=== PATIENT | female | born 1950 | race Caucasian/White ===

== ENCOUNTER → 2017-10-02 17:04 | Outpatient (CLI) | payer OTHER, SELFPAY ==
--- NOTE | 2017-10-02 17:08 | RAD_ITS ---
STUDY: X-RAY - RIGHT KNEE REASON FOR EXAM: Female, 67 years old. Pain TECHNIQUE: 4 view(s) of the knee. COMPARISON: None. FINDINGS: Normal visualized distal femur. Normal visualized proximal tibia and fibula. Normal proximal tibiofibular articulation. Normal medial femorotibial compartment. Normal lateral femorotibial compartment. Normal patellofemoral articulation. The soft tissue structures are unremarkable. RAD/Knee 4 or More Views IMPRESSION: Normal x-ray examination of the knee. Electronically Signed: Shaheen Bernstein DO at 19:14 EDT Tel [phone], Service support ,
== END ==
PROVIDERS: Family Provider Family Medicine; PCP Family Medicine; Visit Provider Family Medicine
DX: M25.561 Pain in right knee (principal)
CPT/HCPCS: 73564

== ENCOUNTER → 2018-05-21 14:41 | Outpatient (CLI) | payer OTHER, SELFPAY ==
[2018-05-21 16:01] LABS: Hemoglobin A1c 6.4 % (4.2-6.3)
[2018-05-21 17:11] LABS: ALB/GLOB Ratio 1.3 RATIO (0.9-2.4); AST(SGOT) 22 U/L (15-37); Alanine Aminotransfer ALT/SGPT 35 U/L (13-56); Albumin, Serum 4.2 g/dL (3.2-5.0); Alkaline Phosphatase 71 U/L (45-117); Anion Gap 8 (5-15); BUN 15 mg/dL (7-18); BUN/Creat Ratio 20.8 RATIO (10-20); Calcium,Total 8.9 mg/dL (8.5-10.1); Chloride 106 mmol/L (98-107); Creatinine, Serum 0.72 mg/dL (0.55-1.02); EST Glomerular Filtration Rate 86 mL/min (>60); Est Glom Filt Rate - Afr Amer 104 mL/min (>60); Globulin 3.3 g/dL (2.2-4.2); Glucose 101 mg/dL (74-106); Potassium 4.1 mmol/L (3.5-5.1); Protein, Total 7.5 g/dL (6.4-8.2); Sodium Level 140 mmol/L (136-145); Thyroid Stim Hormone (TSH) 1.82 uIU/mL (0.358-3.74)
--- OUTSIDE RECORDS SUMMARY | 2018-07-07 19:45 | XMS RPT_ITS ---
:1950 Author Organization OHIP Care Team Providers Name Role Phone Jeremiah Post Attending Unavailable Jeremiah Post Primary Care Unavailable Jeremiah Post Attending Unavailable Jeremiah Post Referring Unavailable Jeremiah Post Primary Care Unavailable PROBLEMS PROBLEMS DATE TYPE CONDITION / CODE ATTENDING STATUS SOURCE 10/02/2017 Unknown M25.569 - Pain in Jeremiah Post Active [place] unspecified knee Community / M25.569(ICD-10) Hospital Repository PROCEDURES PROCEDURES No Procedure Records FoundRESULTS RESULTS HEMOGLOBIN A1C Collected: 05/21/2018 Status: F Source: [place] 2:42 PM [facility] REPOSITORY TYPE CODE TESTS RESULT OUT OF RANGE REFERENCE UNITS LAB L501.9985 4.2-6.3 % High HGB A1C 6.4 Performed By: #### L501.9985, L500.4050, L501.9520 #### [facility] [address] [place], [place], [id number] COMPREHENSIVE METABOLIC Collected: 05/21/2018 Status: F Source: [facility] 2:42 PM [facility] REPOSITORY TYPE CODE TESTS RESULT OUT OF RANGE REFERENCE UNITS LAB L501.0100 74-106 mg/dL Normal GLU 101 Result Comment: Fasting Glucose result from 100 to 125 mg/dL suggests IMPAIRED HOMEOSTASIS per A.D.A. criteria. Please note revised GLUCOSE reference range effective 2017. LAB L501.1000 7-18 mg/dL Normal BUN 15 LAB L501.1100 0.55-1.02 mg/dL Normal CREAT,SERUM 0.72 Result Comment: The validity of the calculated GFR AND GFRAA in patients over 70 years has not been determined. Clinical correlation is essential. LAB L501.1110 >60 mL/min Normal EST GFR 86 Result Comment: Non- GFR Calc LAB L501.1115 >60 mL/min Normal EST GFR - AA 104 Result Comment: GFR Calc LAB L501.1300 10-20 RATIO High BUN/CRE 20.8 LAB L501.1500 6.4-8.2 g/dL T Normal PROT 7.5 LAB L501.1800 3.2-5.0 g/dL Normal ALB 4.2 LAB L501.1950 2.2-4.2 g/dL Normal GLOB 3.3 LAB L501.2000 0.9-2.4 RATIO Normal A/G 1.3 LAB L501.2200 8.5-10.1 mg/dL CA Normal 8.9 LAB L501.4100 15-37 U/L Normal AST 22 LAB L501.4305 45-117 U/L Normal ALK P 71 LAB L501.4405 13-56 U/L Normal ALT 35 LAB L501.4600 0.20-1.00 mg/dL T Normal BILI 0.50 LAB L501.5300 136-145 mmol/L NA Normal 140 LAB L501.5600 3.5-5.1 mmol/L K Normal 4.1 LAB L501.5900 98-107 mmol/L CL Normal 106 LAB L501.6100 21.0-32.0 mmol/L Normal CO2 26.0 LAB L501.6200 5-15 Normal GAP 8 Performed By: #### L501.9985, L500.4050, L501.9520 #### [facility] [address] [place], [place], [id number] THYROID STIM HORMONE Collected: 05/21/2018 Status: F Source: [place] ([facility]) 2:42 PM [facility] REPOSITORY TYPE CODE TESTS RESULT OUT OF RANGE REFERENCE UNITS LAB L501.9520 0.358-3.74 uIU/mL Normal TSH 1.82 Performed By: #### L501.9985, L500.4050, L501.9520 #### [facility] [address] [place], [address] KNEE 4 OR MORE Observed: 10/02/2017 Status: F Source: [place] VIEWS 5:08 PM [facility] REPOSITORY [facility] Imaging Services [address] [place] [address] Knee 4 or More Views MR#: [id number] Acct: [id number] Name: Noble CALDERON Rep #: [id number] : 1950 F 67 From: Shaheen Bernstein DO PCP: Jeremiah Post MD Status: REG CLI Study: Knee 4 or More Views Date of Exam: 10/02/17 Exam# [id number] Ordering Dr: Jeremiah Post MD STUDY: X-RAY - RIGHT KNEE REASON FOR EXAM: Female, 67 years old. Pain TECHNIQUE: 4 view(s) of the knee. COMPARISON: None. FINDINGS: Normal visualized distal femur. Normal visualized proximal tibia and fibula. Normal proximal tibiofibular articulation. Normal medial femorotibial compartment. Normal lateral femorotibial compartment. Normal patellofemoral articulation. The soft tissue structures are unremarkable. RAD/Knee 4 or More Views IMPRESSION: Normal x-ray examination of the knee. Electronically Signed: Shaheen Bernstein DO at 19:14 EDT Tel [phone], Service support , CC: Jeremiah Post MD Dermatology Specialist: Signed PROGRESS Observed: 08/30/2017 Status: COMPLETED Source: [place] 12:11 PM [facility] REPOSITORY HNO ID: [id number] Author: Shakira Daley Service: (none) Author Type: Physician Pv Design And Installation Technician Type: Progress Notes Filed: 08/30/2017 12:23 PM Note Text: 08/30/2017 Patient presents with: Sore Throat: X 2 days SUBJECTIVE: This is a 67 year old that is here today for Complaint(s) of fever and sore throat x last night. + chills. + TORRES. + cough. Denies congestion, vomiting, diarrhea, SOB, wheezing. PAST MEDICAL HISTORY Diagnosis Date - Anxiety - Tachycardia ALLERGIES Macrobid [Nitrofurantoin Monohyd/M-Cryst]; Penicillins; Toprol Xl [Metoprolol Succinate] MEDICATIONS Current Outpatient Prescriptions: clonazePAM (KLONOPIN) 0.5 mg tablet Take 0.5 mg by mouth twice daily as needed. FLUoxetine (PROZAC) 20 mg capsule Take 20 mg by mouth once daily. TRAZODONE HCL (TRAZODONE ORAL) Take by mouth. phenazopyridine (PYRIDIUM) 100 mg tablet Take 1 tablet by mouth three times daily as needed for Pain. No current facility-administered medications for this visit. 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 OBJECTIVE: BP 102/74 Pulse 110 Temp 37.4 ?C (99.4 ?F) (Tympanic) Resp 18 Wt 67.1 kg (148 lb) BMI 27.51 kg/m2 APPEARANCE Well appearing, alert, in no acute distress, well-hydrated, well nourished. EYES PERRLA, conjunctiva and sclera normal. EARS External ears normal, canals clear. TMs normal ESPERANZA NOSE/SINUS Nares normal. Septum midline. Mucosa normal. No drainage or sinus tenderness. THROAT + posterior oropharyngeal erythema, no exudate. Uvula midline NECK Supple, + ESPERANZA anterior adenopathy HEART RRR with normal S1 and S2 LUNG clear to auscultation, No wheezing, rhonchi, rales. ASSESSMENT/PLAN: 1. Sore throat - ICD9: 462, ICD10: J02.9 - Rapid Strep positive in the office today - antibiotic as written - Discussed supportive care treatment with fluids, rest and analgesia. - The patient may also use warm salt water gargles, throat lozenges and/or OTC throat spray as needed and nasal saline gtts and suction prn. - Contagious dz precautions discussed- including considered contagious until on antibiotics for 24 hours - The patient should follow up in 3-5 days if symptoms persist or worsen - Call back if drooling, increased temperature, symptoms of dehydration and/or still sick in one week - RAPID STREP TEST B/O - CEFDINIR 300 MG CAPSULE Reviewed red flags and when to seek care sooner. The patient indicates understanding of these issues and agrees with the plan. Shakira Daley PA-C CNOV Observed: 08/30/2017 Status: COMPLETED Source: [place] 12:00 PM [facility] REPOSITORY Office Visit (WSTR) Noble CALDERON ([id number]) 1950 F Date Time Provider Department 08/30/17 12:00 PM SHAKIRA DALEY) WSTR During your visit today, we recorded the following information about you: Temperature Pulse Respiration Blood pressure 99.4 degrees 110/minute 18/minute 102/74 Weight 67.1 kg Shakira Daley PA-C 08/30/2017 12:23 PM Signed 08/30/2017 Patient presents with: Sore Throat: X 2 days SUBJECTIVE: This is a 67 year old that is here today for Complaint(s) of fever and sore throat x last night. + chills. + TORRES. + cough. Denies congestion, vomiting, diarrhea, SOB, wheezing. PAST MEDICAL HISTORY Diagnosis Date - Anxiety - Tachycardia ALLERGIES Macrobid [Nitrofurantoin Monohyd/M-Cryst]; Penicillins; Toprol Xl [Metoprolol Succinate] MEDICATIONS Current Outpatient Prescriptions: clonazePAM (KLONOPIN) 0.5 mg tablet Take 0.5 mg by mouth twice daily as needed. FLUoxetine (PROZAC) 20 mg capsule Take 20 mg by mouth once daily. TRAZODONE HCL (TRAZODONE ORAL) Take by mouth. phenazopyridine (PYRIDIUM) 100 mg tablet Take 1 tablet by mouth three times daily as needed for Pain. No current facility-administered medications for this visit. 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 OBJECTIVE: BP 102/74 Pulse 110 Temp 37.4 ?C (99.4 ?F) (Tympanic) Resp 18 Wt 67.1 kg (148 lb) BMI 27.51 kg/m2 APPEARANCE Well appearing, alert, in no acute distress, well- hydrated, well nourished. EYES PERRLA, conjunctiva and sclera normal. EARS External ears normal, canals clear. TMs normal ESPERANZA NOSE/SINUS Nares normal. Septum midline. Mucosa normal. No drainage or sinus tenderness. THROAT + posterior oropharyngeal erythema, no exudate. Uvula midline NECK Supple, + ESPERANZA anterior adenopathy HEART RRR with normal S1 and S2 LUNG clear to auscultation, No wheezing, rhonchi, rales. ASSESSMENT/PLAN: 1. Sore throat - ICD9: 462, ICD10: J02.9 - Rapid Strep positive in the office today - antibiotic as written - Discussed supportive care treatment with fluids, rest and analgesia. - The patient may also use warm salt water gargles, throat lozenges and/or OTC throat spray as needed and nasal saline gtts and suction prn. - Contagious dz precautions discussed- including considered contagious until on antibiotics for 24 hours - The patient should follow up in 3-5 days if symptoms persist or worsen - Call back if drooling, increased temperature, symptoms of dehydration and/or still sick in one week - RAPID STREP TEST B/O - CEFDINIR 300 MG CAPSULE Reviewed red flags and when to seek care sooner. The patient indicates understanding of these issues and agrees with the plan. Shakira Daley PA-C Referring Provider: SELF [200] Allergies As of Date: 08/30/2017 Noted Allergy Reaction MACROBID (NITROFURANTOIN MONOHYD/*11/15/2010 16 - Unknown PENICILLINS 05/28/2009 TOPROL XL (METOPROLOL SUCCINATE) 08/07/2011 14 - Other: See Comments Comments: Severe burning sensation in both arms and both legs Date Reviewed: 08/30/2017 Reviewed by: Annemarie Luis LPN - Fully Assessed Reason for Visit: Sore Throat [200] Cmt: X 2 days Primary Visit Diagnosis:Sore throat [J02.9] Order(s):RAPID STREP TEST B/O [[id number]] Order #: [id number] cefdinir (OMNICEF) 300 mg capsuleTake 1 capsule by mouth twice daily for 10 days.Disp: 20 capsuleRfl: 0 Prescriptions as of 08/30/2017 Sig: CLONAZEPAM 0.5 MG TABLET Take 0.5 mg by mouth twice da* FLUOXETINE 20 MG CAPSULE Take 20 mg by mouth once ha* * TRAZODONE ORAL Take by mouth. CEFDINIR 300 MG CAPSULE Take 1 capsule by mouth twice* PHENAZOPYRIDINE 100 MG TABLET Take 1 tablet by mouth three * Medication notes this encounter PHENAZOPYRIDINE 100 MG TABLET >> Annemarie Luis LPN 08/30/2017 11:57 AM >> ANNEMARIE LUIS LPN SatAug 30, 2017 11:57 AM Not taking More... Problem List As Of Date 08/30/2017 Noted Resolved Routine gynecological examination [Z01.419] INVALID FOR*09/18/2011 Priority: B Class: Chronic Colon polyps [K63.5] INVALID FOR* Priority: D More... 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 Seasonal allergies [J30.2] INVALID FOR* Priority: C GERD (gastroesophageal reflux disease) [K21.9] INVALID FOR* Priority: B Impaired fasting blood sugar [R73.01] INVALID FOR* Priority: A More... Adjustment disorder with anxiety [F43.22] INVALID FOR* Priority: Severe More... Prescriptions ordered this encounter Disp Refills Start End CEFDINIR 300 MG CAPSULE 20 c* 0 08/30/2017 09/09/2017 Route: ORAL Sig: Take 1 capsule by mouth twice daily for 10 days. Letter Text Shakira Daley PA-C Urgent Care [address] [facility] [address] Dept: [phone] 08/30/2017 Noble Bhakta Marielosdeon [address] [facility] [address] To Whom it May Concern: This is to certify that Noble Calderon was seen at our office for medical care. Noble Bhakta may return to work on 09/02/17. If you have any questions please feel free to call. Sincerely: Shakira Daley PA-C Encounter Status:Closed by SHAKIRA DALEY PA-C on 08/30/17 ALLERGIES ALLERGIES DATE TYPE / NAME / CODE REACTION SEVERITY SOURCE CODE 01/22/2015 Drug Penicillins/[id number] Hives Unknown [place] Allergy/41 76(RXNORM) [facility] [id number]( [facility]) Repository 08/07/2011 DRUG METOPROLOL SUCCINATE OTHER: SEE C [facility] INGREDI/41 [address] [place] [id number]( Repository OMED CT) 11/15/2010 DRUG/06712 NITROFURANTOIN UNKNOWN [facility] 1003(SNOME MONOHYD/M-CRYST [address] [place] D CT) Repository 05/28/2009 Drug PENICILLINS [facility] Class/4195 [facility] [address](SNOM Repository ED CT) ENCOUNTERS ENCOUNTERS ADMIT/DISCHARGE ACCOUNT ADMITTING ENCOUNTER LOCATION SOURCE NUMBER CLASS 05/21/2018 [id number] [facility] ing:MFPLAB Repository 10/02/2017 [id number] [facility] ing:MTRAD Repository 08/30/2017/09/03/19 [id number] Ambulatory [address] Main [place] Repository PAYERS PAYERS ENCOUNTER GUARANTOR PAYER SUBSCRIBER SOURCE 05/21/2018 TERENCE [id number] Insurance:MEDICAL TOPOVSKIDOB: James MARQUEZ [id number] [address]Drw: Number: Repository [id number] (HP) Date:0346-12-78[address], [place] [address]EK: 05/21/2018 Secondary NOT GIVENUNK [place] Insurance:SELF PAY [facility] Number: Effective Repository Date:2018-05-21 10/02/2017 TERENCE A Shena TERENCE Allen [id number] Insurance:MEDICAL TOPOVSKIDOB: [facility] ALFREDO MARQUEZ [id number] [address]Mzs: Number: Repository [phone] [id number] () Date:[id number] [address], [place] [address]AG: 10/02/2017 Secondary NOT GIVENUNK [place] Insurance:SELF PAY [facility] Number: Effective Repository Date:2017-10-02
== END ==
PROVIDERS: Family Medicine; Family Provider Family Medicine; PCP Family Medicine; Visit Provider Family Medicine
DX: R03.0 Elevated blood-pressure reading, without diagnosis of hypertension (principal); R73.09 Other abnormal glucose
CPT/HCPCS: 36415; 80053; 83036; 84443

== ENCOUNTER → 2018-12-09 | Outpatient (CLI) | payer OTHER, SELFPAY ==
--- NOTE | 2018-12-09 16:21 | BI_ITS ---
MAMMOGRAPHY - BILATERAL SCREENING REASON FOR EXAM: Female, 68 years old. Routine annual screening examination. PERTINENT HISTORY: Non-contributory. TECHNIQUE: Digital bilateral breast sadie (3D mammographic acquisition) in the CC and MLO projections. 2-D mediolateral oblique (MLO) and craniocaudad (CC) views of both breasts were obtained. CAD: Full Field Digital Mammography with Computer Added Detection was performed. COMPARISON: Comparison is made with prior study dated November 06, 2016 and October 13, 2015. FINDINGS: Breast Composition: The breasts are heterogeneously dense, which may obscure small masses. There are no dominant masses or suspicious calcifications. Stable appearance of the small bilateral axillary lymph nodes. No other significant abnormalities are identified. There has been no significant change since the prior study. BI/SCREEN MAMM (CAD) W/SADIE BILAT IMPRESSION: Stable bilateral screening mammogram. Yearly follow-up mammogram recommended. (A) ASSESSMENT CATEGORY: BIRADS Category 2: Benign. A letter regarding these results will be sent to the patient by the facility within 30 days. Approximately 10% of breast cancers are not detected by mammography. A normal mammogram should not delay biopsy of a clinically suspicious abnormality. [id number] Electronically Signed: Josias Garcia, at 10:22 EDT , Service support ,
== END | disposition home or self-care (01) ==
LOC: OPBI 12-10 07:25
PROVIDERS: Family Provider Family Medicine; PCP Family Medicine; Referring Provider Nurse Practitioner Adult Health; Visit Provider Nurse Practitioner Adult Health
DX: Z12.31 Encounter for screening mammogram for malignant neoplasm of breast (principal)
CPT/HCPCS: 77063; 77067

== ENCOUNTER → 2019-03-05 12:25 | Outpatient (CLI) | payer OTHER, SELFPAY ==
[2019-03-05 14:06] LABS: Absolute Lymphocyte Count 1.94 X10^3/uL (0.83-4.51); Absolute Neutrophil Count 4.9 X10^3/uL (2.0-7.7); Basophil# 0.05 X10^3/uL; Basophil% 0.7 % (0-1); Eosinophil# 0.08 X10^3/uL; Eosinophils% 1.1 % (0-5); Hemoglobin 12.8 g/dL (12.0-15.0); Lymphocyte # 1.94 X10^3/ul (4.0); Lymphocyte % 25.9 % (19-41); Mean Corp Hgb Conc 32.8 g/dL (32-36); Mean Corpuscular Hgb 29.8 pg (27.0-32.0); Mean Corpuscular Volume 90.9 fL (81-99); Mean Platelet Vol. 9.3 fl (6.2-12.0); Monocyte# 0.54 X10^3/uL; Monocyte% 7.2 % (0-10); NRBC Flagged by Analyzer 0 % (0-5); Neutrophil # 4.85 X10^3/uL (2.7-7.7); Neutrophil % 64.7 % (47-70); Platelet Count 352 K/mm3 (150-450); RBC Distribution Width CV 11.7 % (11.6-14.6); RBC Distribution Width SD 38.5 fl (35.1-43.9); Red Blood Count 4.29 M/mm3 (4.2-5.4); White Blood Count 7.5 K/mm3 (4.4-11.0)
[2019-03-05 15:08] LABS: Anion Gap 3 (5-15); BUN 16 mg/dL (7-18); BUN/Creat Ratio 22.1 RATIO (10-20); Calcium,Total 8.5 mg/dL (8.5-10.1); Chloride 109 mmol/L (98-107); Creatinine, Serum 0.72 mg/dL (0.55-1.02); EST Glomerular Filtration Rate 85 mL/min (>60); Est Glom Filt Rate - Afr Amer 103 mL/min (>60); Glucose 96 mg/dL (74-106); Magnesium 2.3 mg/dL (1.6-2.6); Potassium 3.5 mmol/L (3.5-5.1); Sodium Level 142 mmol/L (136-145)
--- NOTE | 2019-03-06 08:56 | STRESSREP ---
Stress Test Report Date: Procedure: Exercise tolerance test/imaging study Indications: Chest pain Consent: Per the patient Procedure: The patient exercised on a Fco protocol for 4 minutes completing Stage 1 and 1 minute of Stage II achieving a peak heart rate of 164 bpm (107 % predicted maximal heart rate) with a peak blood pressure 172/80 mmHg and a peak MET capacity of 5 METs. The baseline ECG demonstrated normal sinus rhythm. The peak exercise ECG demonstrated somatic/motion artifact with no obvious ECG changes. There was a rare PVC during recovery. The functional capacity was considered decreased. There was no complaint of chest discomfort during exercise or recovery. The examination was discontinued secondary to dyspnea, leg discomfort, and fatigue. Impression: 1. Technically adequate (percent predicted maximal heart rate greater than 85%) exercise tolerance test 2. Peak exercise ECG with somatic/motion artifact with no obvious ECG changes 3. There was a rare PVC during recovery 4. Nuclear images pending Myocardial perfusion imaging study: Technique: The patient was injected with 12.0 mCi of technetium 99m Cardiolite and subsequently rest SPECT Cardiolite nuclear imaging was obtained in the horizontal long, vertical long, and short axis views. The patient exercised on a Fco protocol for 4 minutes completing Stage 1 and 1 minute of Stage II achieving a peak heart rate of 164 bpm (107 % predicted maximal heart rate) with a peak blood pressure 172/80 mmHg and a peak MET capacity of 5 METs. The patient was injected with 35.4 mCi of technetium 99m Cardiolite and subsequently stress SPECT Cardiolite nuclear imaging was obtained in the horizontal long, vertical long, and short axis views. A gated Cardiolite study at peak stress was obtained. Interpretation: Rest and stress SPECT Cardiolite nuclear imaging status post realignment, normalization, and attenuation correction, demonstrates relative uniform tracer uptake and myocardial perfusion appearing within normal limits. There is end systolic thickening and brightening. The gated Cardiolite study demonstrates myocardial thickening and inward wall motion. The reported LVEF is 86 %. Impression: 1. Rest and stress SPECT Cardiolite nuclear imaging demonstrate relative uniform tracer uptake and myocardial perfusion appearing within normal limits. 2. The gated Cardiolite study reports an LVEF of 86 %. This note was generated with [employer] software. It may contain incorrect words, spelling, and punctuation that were not noted in checking the note before signing.
== END ==
PROVIDERS: Family Provider Family Medicine; PCP Family Medicine; Referring Provider Family Medicine; Visit Provider Family Medicine
DX: R42 Dizziness and giddiness (principal)
CPT/HCPCS: 36415; 80048; 83735; 85025

== ENCOUNTER → 2019-03-06 06:10 | Outpatient (CLI) | payer OTHER, SELFPAY | PROVIDERS: Family Provider Family Medicine; PCP Family Medicine; Referring Provider Family Medicine; Visit Provider Family Medicine | DX: R07.9 Chest pain, unspecified (principal) | CPT/HCPCS: 78452; 93017; A9500; A4216 ==

== ENCOUNTER → 2019-10-07 15:10 | Outpatient (CLI) | payer OTHER, SELFPAY ==
[2019-10-07 17:36] LABS: Absolute Neutrophil Count 5.3 X10^3/uL (2.0-7.7); Basophil# 0.03 X10^3/uL; Basophil% 0.4 % (0-1); Eosinophil# 0.12 X10^3/uL; Eosinophils% 1.5 % (0-5); Hematocrit 37.2 % (37-47); Hemoglobin 12.2 g/dL (12.0-15.0); Lymphocyte % 22.8 % (19-41); Mean Corp Hgb Conc 32.8 g/dL (32-36); Mean Corpuscular Hgb 29.4 pg (27.0-32.0); Mean Corpuscular Volume 89.6 fL (81-99); Mean Platelet Vol. 9.4 fl (6.2-12.0); Monocyte# 0.58 X10^3/uL; Monocyte% 7.4 % (0-10); NRBC Flagged by Analyzer 0 % (0-5); Neutrophil # 5.33 X10^3/uL (2.7-7.7); Neutrophil % 67.5 % (47-70); Platelet Count 361 K/mm3 (150-450); RBC Distribution Width CV 11.7 % (11.6-14.6); RBC Distribution Width SD 37.7 fl (35.1-43.9); Red Blood Count 4.15 M/mm3 (4.2-5.4); White Blood Count 7.9 K/mm3 (4.4-11.0)
[2019-10-07 18:52] LABS: AST(SGOT) 15 U/L (15-37); Alanine Aminotransfer ALT/SGPT 31 U/L (13-56); Albumin, Serum 3.7 g/dL (3.2-5.0); Alkaline Phosphatase 72 U/L (45-117); Anion Gap 4 (5-15); BUN 14 mg/dL (7-18); BUN/Creat Ratio 18.7 RATIO (10-20); Calcium,Total 8.7 mg/dL (8.5-10.1); Chloride 110 mmol/L (98-107); Creatinine, Serum 0.75 mg/dL (0.55-1.02); EST Glomerular Filtration Rate 82 mL/min (>60); Est Glom Filt Rate - Afr Amer 99 mL/min (>60); Globulin 3.6 g/dL (2.2-4.2); Glucose 105 mg/dL (74-106); Lipase 86 U/L (73-393); Potassium 3.9 mmol/L (3.5-5.1); Protein, Total 7.3 g/dL (6.4-8.2); Sodium Level 140 mmol/L (136-145)
== END ==
PROVIDERS: PCP Family Medicine; Visit Provider Family Medicine
DX: R10.9 Unspecified abdominal pain (principal)
CPT/HCPCS: 36415; 80053; 83690; 85025

== ENCOUNTER → 2019-10-07 15:31 | Outpatient (CLI) | payer OTHER, SELFPAY ==
--- NOTE | 2019-10-07 15:34 | CT_ITS ---
STUDY: CT ABDOMEN WITH CONTRAST REASON FOR EXAM: Female, 69 years old. RT SIDED ABD PAIN X 2 DAYS, HTN, ABDOMINAL PLASTY RADIATION DOSAGE (If Supplied By Facility): CTDIvol = ( 14.68 ) mGy, DLP = ( 474.69 ) mGycm TECHNIQUE: Transaxial images were obtained post I.V. administration of Oral and amp; IV Gastrografin and amp; 100mL Isovue-370. Individualized dose optimization techniques were used for this CT. COMPARISON: None. FINDINGS: The visualized lung bases are unremarkable. The visualized portions of the heart are within normal limits. Normal liver. Normal gallbladder and extrahepatic biliary system. Normal spleen. Several low-attenuation lesions are seen in the pancreatic tail largest of which measures up to 2.2 cm. Normal bilateral adrenal glands. Normal right kidney. Normal left kidney. Normal visualized stomach. Normal small intestine. Normal colon. The appendix is visualized and appears normal. Normal abdominal aorta. Normal inferior vena cava. Normal retroperitoneum. Normal abdominal wall. Normal osseous structures. CT/Abdomen WITH IV Contrast IMPRESSION: No acute process is identified. Several low-attenuation lesions are seen of the pancreatic tail and are incompletely characterized. Recommend dedicated pancreatic protocol cross-sectional imaging for further evaluation. Electronically Signed: Mahesh Espinal, at 19:30 EDT Tel , Service support ,
[2019-10-07 18:41] LABS: CREATININE FINGERSTICK 0.9 mg/dL (0.55-1.02); EGFR FINGERSTICK > 60.0000 mL/min (>60)
== END ==
PROVIDERS: PCP Family Medicine; Referring Provider Family Medicine; Visit Provider Family Medicine
DX: R10.9 Unspecified abdominal pain (principal)
CPT/HCPCS: 74160; Q9967

== ENCOUNTER → 2019-10-09 11:19 | Outpatient (CLI) | payer OTHER, SELFPAY ==
--- NOTE | 2019-10-09 11:26 | MRI_ITS ---
STUDY: MRI ABDOMEN WITH AND WITHOUT CONTRAST REASON FOR EXAM: Female, 69 years old. Pancreatic abnormality f/u CT, RUQ PAIN, ATTN PANCREAS TECHNIQUE: Standardized fat and water weighted pulse sequences were obtained in all 3 orthogonal planes post contrast administration. IV 14 cc dotarem was administered for the contrast portion of the examination. COMPARISON: CT 10/07/2019 FINDINGS: The visualized lung bases are unremarkable. The visualized portions of the heart are within normal limits. Normal liver. Normal gallbladder and extrahepatic biliary system. Normal spleen. 1 x 4 cm tubular multiloculated cystic T1 fluid intensity in T2 fluid intensity mass without appreciable contrast enhancement involving the distal body and tail of the pancreas. Differential diagnosis includes dilatation of the distal pancreatic duct likely from prior pancreatitis, intraductal papillary mucinous neoplasm (IPMN) or serous cystadenoma the pancreas (microcystic adenoma). Normal bilateral adrenal glands. Normal right kidney. Normal left kidney. Normal visualized stomach. Normal small intestine. Normal colon. There is non-visualization of the appendix. Normal abdominal aorta. Normal inferior vena cava. Normal retroperitoneum. Normal abdominal wall. Normal osseous structures. MRI/MRI Abd WITH and W/O Contrast IMPRESSION: 1 x 4 cm multiloculated cystic lesion of the distal body and tail of the pancreas.Differential diagnosis includes dilatation of the distal pancreatic duct likely from prior pancreatitis, intraductal papillary mucinous neoplasm (IPMN) or serous cystadenoma the pancreas (microcystic adenoma). Electronically Signed: Flaco Everett MD at 13:43 EDT Tel , Service support ,
== END ==
PROVIDERS: PCP Family Medicine; Referring Provider Family Medicine; Visit Provider Family Medicine
DX: R10.9 Unspecified abdominal pain (principal)
CPT/HCPCS: 74183; A9575; A4216

== ENCOUNTER → 2020-02-03 14:17 | Outpatient (CLI) | payer OTHER, SELFPAY ==
--- NOTE | 2020-02-03 14:19 | BI_ITS ---
MAMMOGRAPHY - BILATERAL SCREENING REASON FOR EXAM: Female, 69 years old. Routine annual screening examination. PERTINENT HISTORY: Non-contributory. TECHNIQUE: Digital bilateral breast sadie (3D mammographic acquisition) in the CC and MLO projections. 2-D mediolateral oblique (MLO) and craniocaudad (CC) views of both breasts were obtained. CAD: Full Field Digital Mammography with Computer Added Detection was performed. COMPARISON: Comparison is made with prior study dated 12/09/2018 and 11/06/2016. FINDINGS: Breast Composition: The breasts are heterogeneously dense, which may obscure small masses. There are no dominant masses or suspicious calcifications. Stable benign appearing bilateral axillary lymph nodes. No other significant abnormalities are identified. There has been no significant change since the prior study. BI/SCREEN MAMM (CAD) W/SADIE BILAT IMPRESSION: Stable bilateral screening mammogram. Yearly follow-up mammogram recommended. (A) ASSESSMENT CATEGORY: BIRADS Category 2: Benign. A letter regarding these results will be sent to the patient by the facility within 30 days. Approximately 10% of breast cancers are not detected by mammography. A normal mammogram should not delay biopsy of a clinically suspicious abnormality. [id number] Electronically Signed: Josias Garcia, at 15:26 EDT , Service support ,
== END ==
PROVIDERS: PCP Family Medicine; Referring Provider Family Medicine; Visit Provider Family Medicine
DX: Z12.31 Encounter for screening mammogram for malignant neoplasm of breast (principal)
CPT/HCPCS: 77063; 77067

== ENCOUNTER → 2020-07-04 15:47 | Outpatient (CLI) | payer OTHER, SELFPAY ==
[2020-07-04 17:58] LABS: Absolute Lymphocyte Count 2.66 X10^3/uL (0.83-4.51); Absolute Neutrophil Count 6.9 X10^3/uL (2.0-7.7); Basophil% 0.9 % (0-1); Eosinophil# 0.15 X10^3/uL; Eosinophils% 1.4 % (0-5); Hematocrit 40.3 % (37-47); Hemoglobin 13.2 g/dL (12.0-15.0); Lymphocyte # 2.66 X10^3/ul (4.0); Mean Corp Hgb Conc 32.8 g/dL (32-36); Mean Corpuscular Hgb 30.1 pg (27.0-32.0); Mean Corpuscular Volume 91.8 fL (81-99); Mean Platelet Vol. 9.8 fl (6.2-12.0); Monocyte# 0.78 X10^3/uL; Monocyte% 7.3 % (0-10); NRBC Flagged by Analyzer 0 % (0-5); Neutrophil % 65.1 % (47-70); Platelet Count 573 K/mm3 (150-450); RBC Distribution Width CV 12.2 % (11.6-14.6); RBC Distribution Width SD 40.9 fl (35.1-43.9); Red Blood Count 4.39 M/mm3 (4.2-5.4); White Blood Count 10.6 K/mm3 (4.4-11.0)
[2020-07-04 18:15] LABS: Erythrocyte Sedimentation Rate 3 mm/hr (0-30)
[2020-07-06 20:54] LABS: ANTINUCLEAR ANTIBODIES DIRECT Negative (Negative)
== END ==
PROVIDERS: PCP Family Medicine; Visit Provider Family Medicine
DX: R60.9 Edema, unspecified (principal)
CPT/HCPCS: 36415; 85025; 85652; 86038

== ENCOUNTER → 2020-09-16 14:05 | Outpatient (CLI) | payer OTHER, SELFPAY ==
[2020-09-16 15:14] LABS: Absolute Lymphocyte Count 4.32 X10^3/uL (0.83-4.51); Basophil# 0.13 X10^3/uL; Basophil% 1.1 % (0-1); Eosinophil# 0.38 X10^3/uL; Eosinophils% 3.2 % (0-5); Hematocrit 39.2 % (37-47); Hemoglobin 12.9 g/dL (12.0-15.0); Lymphocyte # 4.32 X10^3/ul (4.0); Lymphocyte % 36.5 % (19-41); Mean Corp Hgb Conc 32.9 g/dL (32-36); Mean Corpuscular Hgb 29.8 pg (27.0-32.0); Mean Corpuscular Volume 90.5 fL (81-99); Mean Platelet Vol. 9.6 fl (6.2-12.0); Monocyte# 0.94 X10^3/uL; Monocyte% 7.9 % (0-10); NRBC Flagged by Analyzer 0 % (0-5); Neutrophil % 50.6 % (47-70); Platelet Count 625 K/mm3 (150-450); RBC Distribution Width CV 12.8 % (11.6-14.6); Red Blood Count 4.33 M/mm3 (4.2-5.4); White Blood Count 11.9 K/mm3 (4.4-11.0)
== END ==
PROVIDERS: PCP Family Medicine; Referring Provider Family Medicine; Visit Provider Registered Nurse
DX: R21 Rash and other nonspecific skin eruption (principal)
CPT/HCPCS: 36415; 85025

== ENCOUNTER → 2020-10-25 11:59 | Outpatient (CLI) | payer OTHER, SELFPAY ==
[2020-09-22 11:11] VITALS: BMI 29.9
--- NOTE | 2020-10-25 12:02 | RAD_ITS ---
STUDY: X-RAY - RIGHT KNEE REASON FOR EXAM: Female, 70 years old. Pain, decreased range of motion TECHNIQUE: 4 view(s) of the knee. COMPARISON: None. FINDINGS: Normal visualized distal femur. Normal visualized proximal tibia and fibula. Normal proximal tibiofibular articulation. There is mild degenerative arthrosis of the medial femorotibial compartment. Normal lateral femorotibial compartment. There is mild degenerative arthrosis of the patellofemoral articulation. The soft tissue structures are unremarkable. RAD/Knee 4 or More Views IMPRESSION: Mild arthrosis Electronically Signed: Dov Wooten MD at 12:54 EDT , Service support ,
== END ==
PROVIDERS: PCP Family Medicine; Referring Provider Family Medicine; Visit Provider Family Medicine
DX: M25.561 Pain in right knee (principal); R31.9 Hematuria, unspecified
CPT/HCPCS: 73564; 87086; 87088

== ENCOUNTER → 2020-11-03 12:54 | Outpatient (CLI) | payer OTHER, SELFPAY ==
[2020-09-22 11:11] VITALS: BMI 29.9
[2020-11-03 15:21] LABS: Absolute Lymphocyte Count 2.74 X10^3/uL (0.83-4.51); Absolute Neutrophil Count 7.6 X10^3/uL (2.0-7.7); Basophil# 0.11 X10^3/uL; Eosinophils% 1.7 % (0-5); Hematocrit 40.4 % (37-47); Hemoglobin 13.1 g/dL (12.0-15.0); Lymphocyte # 2.74 X10^3/ul (0.83-4.51); Lymphocyte % 23.7 % (19-41); Mean Corp Hgb Conc 32.4 g/dL (32-36); Mean Corpuscular Hgb 29.5 pg (27.0-32.0); Mean Platelet Vol. 10.1 fl (6.2-12.0); Monocyte# 0.88 X10^3/uL; Monocyte% 7.6 % (0-10); NRBC Flagged by Analyzer 0 % (0-5); Neutrophil % 65.7 % (47-70); Platelet Count 552 K/mm3 (150-450); RBC Distribution Width CV 12.6 % (11.6-14.6); RBC Distribution Width SD 41.7 fl (35.1-43.9); Red Blood Count 4.44 M/mm3 (4.2-5.4); White Blood Count 11.6 K/mm3 (4.4-11.0)
[2020-11-03 15:39] LABS: Anion Gap 7 (5-15); BUN 17 mg/dL (7-18); BUN/Creat Ratio 21.5 RATIO (10-20); Calcium,Total 8.9 mg/dL (8.5-10.1); Chloride 107 mmol/L (98-107); Cholesterol 174 mg/dL (200); Creatinine, Serum 0.79 mg/dL (0.55-1.02); EST Glomerular Filtration Rate 76 mL/min (>60); Est Glom Filt Rate - Afr Amer 93 mL/min (>60); Glucose 154 mg/dL (74-106); High Density Lipoprotein 56 mg/dL; Potassium 4.2 mmol/L (3.5-5.1); Sodium Level 139 mmol/L (136-145); Triglycerides 85 mg/dL; Very Low Density Lipoprotein 17 mg/dL (5-40)
== END ==
PROVIDERS: PCP Family Medicine; Referring Provider Family Medicine; Visit Provider Family Medicine
DX: R60.9 Edema, unspecified (principal); D47.3 Essential (hemorrhagic) thrombocythemia; I10 Essential (primary) hypertension
CPT/HCPCS: 36415; 80048; 80061; 85025

== ENCOUNTER 2021-01-16 20:59 | Emergency (ER) | payer OTHER, SELFPAY ==
[2020-09-22 11:11] VITALS: BMI 29.9
[2021-01-16 21:00] VITALS: BP 131/87; PULSE 107; RESP 18; TEMP 36.1; O2SAT 98; BMI 29.2
--- NOTE | 2021-01-16 21:23 | EKG12_ITS ---
Test Reason : CP Blood Pressure : / mmHG Vent. Rate : 094 BPM Atrial Rate : 094 BPM P-R Int : 158 ms QRS Dur : 084 ms QT Int : 344 ms P-R-T Axes : 066 -22 049 degrees QTc Int : 430 ms Normal sinus rhythm Incomplete right bundle branch block Inferior infarct , age undetermined , cannot be excluded Abnormal ECG Confirmed by ABE PATTERSON, CHRIST ([id number]), publications editor COLE BREWSTER ([id number]) on 01/18/2021 10:43:47 AM Referred By: JAMESON Confirmed By:CHRIST FISH MD
--- NOTE | 2021-01-16 21:55 | RAD_ITS ---
STUDY: X-RAY CHEST REASON FOR EXAM: Female, 70 years old. chest pain TECHNIQUE: Single AP portable view of the chest. COMPARISON: June 23, 2015 FINDINGS: The lungs are clear and expanded. There is no demonstrated pleural abnormality. Normal size heart. Normal mediastinum and diego. Normal visualized pulmonary arteries. Normal visualized aortic arch and descending thoracic aorta. Normal visualized thoracic spine. Normal visualized ribs, clavicles, and shoulders. There is no demonstrated abnormality of the visualized soft tissue structures of the upper abdomen. RAD/Chest 1 View (Portable) IMPRESSION: Normal x-ray examination of the chest. Electronically Signed: Mekhi Meléndez MD at 22:45 EDT , Service support ,
[2021-01-16 21:56] LABS: Absolute Lymphocyte Count 4.88 X10^3/uL (0.83-4.51); Absolute Neutrophil Count 12.9 X10^3/uL (2.0-7.7); Basophil# 0.04 X10^3/uL; Basophil% 0.2 % (0-1); Eosinophil# 0.05 X10^3/uL; Eosinophils% 0.3 % (0-5); Hematocrit 41.2 % (37-47); Hemoglobin 13.5 g/dL (12.0-15.0); Lymphocyte # 4.88 X10^3/ul (0.83-4.51); Lymphocyte % 24.7 % (19-41); Mean Corp Hgb Conc 32.8 g/dL (32-36); Mean Corpuscular Hgb 29.6 pg (27.0-32.0); Mean Corpuscular Volume 90.4 fL (81-99); Mean Platelet Vol. 9.7 fl (6.2-12.0); Monocyte% 8.6 % (0-10); NRBC Flagged by Analyzer 0 % (0-5); Neutrophil # 12.87 X10^3/uL (2.7-7.7); Neutrophil % 65.1 % (47-70); POSITIVE DIFFERENTIAL YES; Platelet Count 541 K/mm3 (150-450); RBC Distribution Width CV 12.4 % (11.6-14.6); Red Blood Count 4.56 M/mm3 (4.2-5.4); White Blood Count 19.8 K/mm3 (4.4-11.0)
[2021-01-16 22:25] LABS: Anion Gap 9 (5-15); BUN 22 mg/dL (7-18); BUN/Creat Ratio 25.6 RATIO (10-20); Calcium,Total 9.6 mg/dL (8.5-10.1); Chloride 104 mmol/L (98-107); Creatinine, Serum 0.86 mg/dL (0.55-1.02); EST Glomerular Filtration Rate 69 mL/min (>60); Est Glom Filt Rate - Afr Amer 84 mL/min (>60); Estimated Creatinine Clearance 48.83 ml/min; Glucose 188 mg/dL (74-106); Potassium 4.1 mmol/L (3.5-5.1); Sodium Level 137 mmol/L (136-145); Troponin-I HS 16.3 pg/mL (3.0-53.7)
[2021-01-16 22:30] LABS: Differential Indicated SCAN CRITERIA MET
[2021-01-16] MEDS: 0.9% Normal Saline 1,000 ML 150 ML IV (22:34)
[2021-01-16] MEDS: Morphine 4 MG/ML Syringe IV (22:34)
[2021-01-16] MEDS: Ondansetron 4 MG/2 ML Vial IV (22:34)
[2021-01-16 22:36] LABS: AST(SGOT) 14 U/L (15-37); Alanine Aminotransfer ALT/SGPT 29 U/L (13-56); Albumin, Serum 3.9 g/dL (3.2-5.0); Alkaline Phosphatase 73 U/L (45-117); Bilirubin, Direct 0.14 mg/dL (0.00-0.30); Globulin 3.8 g/dL (2.2-4.2); Lipase 159 U/L (73-393); Protein, Total 7.7 g/dL (6.4-8.2)
[2021-01-17 00:28] VITALS: BP 171/78; PULSE 74; RESP 14; O2SAT 97
--- NOTE | 2021-01-17 02:10 | EDS_ITS ---
HPI History of Present Illness Chief Complaint: Chest Pain Informant: patient Onset/Context/Timing Onset: Today Context: Gradual Onset Current Severity: Moderate Maximum Severity: Moderate Narrative Narrative: Patient presents with high epigastric pain that wraps around the lower border of the ribs bilaterally. She does report some nausea and did try some Tums thinking it was reflux related. She did not have much improvement. Patient has had no significant cough. 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 Thrombocytosis Home Medications clonazepam 0.5 mg PO QHS 01/22/15 [History Last Taken Unknown] trazodone 50 mg PO QHS 01/22/15 [History Last Taken Unknown] amlodipine 5 mg PO DAILY 09/20/20 [History Last Taken Unknown] fluoxetine 20 mg PO DAILY 09/20/20 [History Last Taken Unknown] losartan 100 mg PO DAILY 09/20/20 [History Last Taken Unknown] mometasone 1 spray NASAL BID 09/20/20 [History Last Taken Unknown] cranberry conc-ascorbic acid 1 tablet PO DAILY 09/22/20 [History Last Taken Unknown] diphenhydramine HCl 25 mg PO QHS 09/22/20 [History Last Taken Unknown] loratadine 10 mg PO DAILY 09/22/20 [History Last Taken Unknown] Allergy/AdvReac Type Severity Reaction Status Date / Time metoprolol [From Toprol XL] AdvReac Severe Other Verified 09/22/20 11:02 nitrofurantoin AdvReac Intermediate Other Verified 09/22/20 11:02 [From Macrobid] Penicillins AdvReac Intermediate Hives Verified 09/22/20 11:02 Family History Father Myocardial infarction Mother Lung cancer Brother Diabetes Surgical History History of splenectomy Social History Smoking Status: Never smoker ROS ROS ED Constitutional Constitutional ED: Denies chills or fever(s) Eyes Eyes: Denies change in vision ENT ENT ED: Denies sore throat Cardiovascular Cardiovascular: Reports chest pain Respiratory/Chest Respiratory/Chest: Denies cough or dyspnea Gastrointestinal Gastrointestinal: Reports abdominal pain; Denies diarrhea, nausea or vomiting Genitourinary Genitourinary ED: Denies dysuria Musculoskeletal Musculoskeletal: Denies back pain Integumentary Denies rash Neurologic Neurologic: Denies headache(s) or weakness Psychiatric Psychiatric: Denies anxiety or depression Endocrine Endocrinology: Denies polydipsia or polyuria Allergic/Immunologic Allergic/Immunologic ED: Denies urticaria EXAM Physical Exam Const Vital Signs: 01/16/21 21:00 01/16/21 21:46 01/17/21 00:28 Temperature 96.9 F L Temperature Source Temporal Pulse Rate 107 H 74 Respiratory Rate 18 14 Blood Pressure 131/87 H 171/78 H Blood Pressure Mean 101 109 Pulse Ox 98 97 Oxygen Delivery Method Room Air Room Air Room Air 01/17/21 02:21 Temperature Temperature Source Pulse Rate 80 Respiratory Rate 18 Blood Pressure 171/78 H Blood Pressure Mean Pulse Ox 95 Oxygen Delivery Method Positive well nourished and well developed General Appearance ED: well developed HEENT Reports normocephalic and head/scalp atraumatic Eyes PERRL and EOMs intact bilaterally Neck supple Chest Wall inspection of chest normal and palpation of chest normal Resp normal respiratory effort and clear to auscultation bilaterally Cardio regular rate and regular rhythm GI Auscultation: hypoactive bowel sounds Palpation: tender epigastric; Negative for guarding or rebound tenderness present Extremity normal to inspection Neuro oriented x3 and no sensory deficits noted Sensorium / Orientation: alert Motor Exam: strength 5/5 throughout Psych mental status grossly normal Skin no rashes or lesions noted MDM MDM MDM Narrative Medical decision making narrative: Patient was given morphine and Zofran for pain. Labs, EKG, chest x-ray obtained. Lab Data Attestation: I reviewed the patient's lab results. Labs: Laboratory Results - last 24 hr 01/16/21 01/16/21 01/16/21 21:45 21:45 21:45 WBC 19.8 H RBC 4.56 Hgb 13.5 Hct 41.2 MCV 90.4 MCH 29.6 MCHC 32.8 RDW Std Deviation 41.0 RDW Coeff of Katlyn 12.4 Plt Count 541 H MPV 9.7 Immature Gran % (Auto) 1.100 H Neut % (Auto) 65.1 Lymph % (Auto) 24.7 [place] % (Auto) 8.6 Eos % (Auto) 0.3 Baso % (Auto) 0.2 Absolute Neuts (auto) 12.9 H Absolute Lymphs (auto) 4.88 H Nucleated RBC % 0 [address] Review May foll Sodium 137 Potassium 4.1 Chloride 104 Carbon Dioxide 24.0 Anion Gap 9 BUN 22 H Creatinine 0.86 Estim Creat Clear Calc 48.83 Est GFR (MDRD) Af Amer 84 Est GFR (MDRD) Non-Af 69 BUN/Creatinine Ratio 25.6 H Glucose 188 H Calcium 9.6 Total Bilirubin 0.50 Direct Bilirubin 0.14 AST 14 L ALT 29 Alkaline Phosphatase 73 Troponin I High Sens 16.3 Total Protein 7.7 Albumin 3.9 Globulin 3.8 Lipase 159 Radiography Chest X-Ray - ED: 1 View, Read by ED Physician and Chronic Changes Diagnostic Testing: Radiology Impression Chest X-Ray 01/16/21 21:55 IMPRESSION: Normal x-ray examination of the chest. Electronically Signed: Mekhi Meléndez MD at 22:45 EDT , Service support , Abdomen/Pelvis CT 01/17/21 22:56 IMPRESSION: Interval splenectomy. Interval partial pancreatectomy since prior study October 07, 2019 Mild hepatic steatosis. No visualized hydronephrosis. Mild to moderate constipation. Minimal diverticulosis no diverticulitis. No appendicitis. Electronically Signed: Nyla Jennings MD at 2:03 EDT Tel , Service support , EKG Initial EKG: Attestation: I personally reviewed and interpreted this EKG as follows: Interpretation: Sinus Rhythm (Sinus at [address] change.) Treatment and Re-Evaluation Comments:: Patient's lab work reviewed with her. In light of her significantly elevated white count a CT scan with contrast is obtained. This reveals no obvious cause of epigastric pain. Patient advised to follow bland diet. She is given return instructions and is to follow-up with her PCP within 1 week. Patient is comfortable with this plan. Discharge Plan Triage Chief Complaint: Chest Pain ED Provider: Sandra Acosta Dx/Rx/DC Orders Clinical Impression: Acute epigastric pain Instructions: ED Epigastric Pain Uncertain Cause Prescriptions: No Action trazodone 50 MG tablet 50 mg PO QHS RF: 0 clonazepam 0.5 MG tablet,disintegrating 0.5 mg PO QHS RF: 0 amlodipine 5 MG tablet 5 mg PO DAILY RF: 0 mometasone 1 SPRAY spray,non-aerosol 1 spray NASAL BID RF: 0 losartan 100 MG tablet 100 mg PO DAILY RF: 0 fluoxetine 20 MG capsule 20 mg PO DAILY RF: 0 cranberry conc-ascorbic acid 1 EACH capsule 1 tablet PO DAILY RF: 0 loratadine 10 MG tablet 10 mg PO DAILY RF: 0 diphenhydramine HCl 25 MG capsule 25 mg PO QHS RF: 0 Primary Care Provider: Jeremiah Post Referrals: Jeremiah Post MD [Primary Care Provider] - 1 Week Disposition Disposition: Home, Self Care Discharge Date/Time: 01/17/21 02:21
[2021-01-17 02:21] VITALS: BP 171/78; PULSE 80; RESP 18; O2SAT 95
[2021-01-17 13:31] LABS: Pathologist Review Reviewed
--- NOTE | 2021-01-17 22:56 | CT_ITS ---
STUDY: CT ABDOMEN AND PELVIS WITH CONTRAST REASON FOR EXAM: Female, 70 years old. Abdominal pain -- IV PO Contrast RADIATION DOSAGE (If Supplied By Facility): CTDIvol = ( 16.35 ) mGy, DLP = ( 777.51 ) mGycm TECHNIQUE: Transaxial images were obtained from the dome of the diaphragm to the symphysis pubis without oral contrast. Oral and amp; IV Breeza Neutral and amp; 100mL Isovue-370 was administered. Sagittal and coronal images were reconstructed. Individualized dose optimization techniques were used for this CT. COMPARISON: October 07, 2019 CT scan abdomen FINDINGS: The visualized lung bases are unremarkable. The visualized portions of the heart are within normal limits. There is mild hepatic steatosis Normal gallbladder and extrahepatic biliary system. The spleen is absent. This appears to been removed since the prior study. There is a been a partial pancreatectomy. Normal bilateral adrenal glands. There is a variant rotation of the right kidney without hydronephrosis. Normal left kidney. Normal visualized stomach. Normal small intestine. There is moderate stool in the colon. There is minimal diverticulosis no diverticulitis. The appendix is visualized and appears normal. Normal abdominal aorta. Normal inferior vena cava. Normal retroperitoneum. Normal urinary bladder. There is atrophy of the uterus. There are multiple small 8 to 10 mm calcifications within the uterus suggesting calcified fibroids. There is a small umbilical hernia containing fat. There are diffuse degenerative changes of the visualized lumbar spine. There is a broad disc bulge or L5 with minimal neural foraminal narrowing no significant central stenosis. CT/Abdomen/Pelvis WITH Contrast IMPRESSION: Interval splenectomy. Interval partial pancreatectomy since prior study October 07, 2019 Mild hepatic steatosis. No visualized hydronephrosis. Mild to moderate constipation. Minimal diverticulosis no diverticulitis. No appendicitis. Electronically Signed: Nyla Jennings MD at 2:03 EDT Tel , Service support ,
== END 2021-01-17 02:21 | disposition home or self-care (01) ==
PROVIDERS: Emergency Provider Emergency Medicine; PCP Family Medicine
DX: R10.13 Epigastric pain (principal)
CPT/HCPCS: 71045; 74177; 80048; 80076; 83690; 84484; 85025; 93005; 96361; 96374; 96375; 99285; J7030; Q9967; A4216; J2405

== ENCOUNTER → 2021-01-19 12:10 | Outpatient (CLI) | payer OTHER, SELFPAY ==
[2021-01-16 21:00] VITALS: BMI 29.2
[2021-01-19 15:00] LABS: Hematocrit 37.7 % (37-47); Hemoglobin 12.6 g/dL (12.0-15.0); Mean Corp Hgb Conc 33.4 g/dL (32-36); Mean Corpuscular Hgb 30.1 pg (27.0-32.0); Mean Corpuscular Volume 90.2 fL (81-99); Platelet Count 522 K/mm3 (150-450); RBC Distribution Width CV 12.6 % (11.6-14.6); RBC Distribution Width SD 41.3 fl (35.1-43.9); Red Blood Count 4.18 M/mm3 (4.2-5.4); White Blood Count 16.4 K/mm3 (4.4-11.0)
[2021-01-19 15:10] LABS: Anion Gap 9 (5-15); BUN 25 mg/dL (7-18); BUN/Creat Ratio 32.2 RATIO (10-20); Calcium,Total 8.3 mg/dL (8.5-10.1); Chloride 106 mmol/L (98-107); Creatinine, Serum 0.78 mg/dL (0.55-1.02); EST Glomerular Filtration Rate 78 mL/min (>60); Est Glom Filt Rate - Afr Amer 94 mL/min (>60); Glucose 168 mg/dL (74-106); Potassium 4.1 mmol/L (3.5-5.1); Sodium Level 139 mmol/L (136-145)
[2021-01-19 15:21] LABS: Hemoglobin A1c 8.5 % (3.8-5.6)
== END ==
PROVIDERS: PCP Family Medicine; Visit Provider Family Medicine
DX: R30.0 Dysuria (principal); R73.9 Hyperglycemia, unspecified
CPT/HCPCS: 36415; 80048; 83036; 85027; 87086; 87088

== ENCOUNTER → 2021-05-10 12:40 | Outpatient (CLI) | payer OTHER, SELFPAY ==
[2021-05-10 15:24] LABS: Anion Gap 9 (5-15); BUN 13 mg/dL (7-18); BUN/Creat Ratio 17.5 RATIO (10-20); Calcium,Total 9.1 mg/dL (8.5-10.1); Chloride 106 mmol/L (98-107); Cholesterol 156 mg/dL (200); Creatinine, Serum 0.74 mg/dL (0.55-1.02); EST Glomerular Filtration Rate 82 mL/min (>60); Est Glom Filt Rate - Afr Amer 100 mL/min (>60); Glucose 129 mg/dL (74-106); High Density Lipoprotein 51 mg/dL; Potassium 4.2 mmol/L (3.5-5.1); Sodium Level 140 mmol/L (136-145); Triglycerides 100 mg/dL; Very Low Density Lipoprotein 20 mg/dL (5-40)
== END ==
PROVIDERS: PCP Family Medicine; Referring Provider Family Medicine; Visit Provider Family Medicine
DX: E11.9 Type 2 diabetes mellitus without complications (principal)
CPT/HCPCS: 36415; 80048; 80061

== ENCOUNTER 2021-06-29 15:16 | Outpatient (CLI) | payer MEDICARE, SELFPAY ==
--- NOTE | 2021-06-29 15:20 | BI_ITS ---
MAMMOGRAPHY - BILATERAL SCREENING REASON FOR EXAM: Female, 71 years old. Routine annual screening examination. PERTINENT HISTORY: Non-contributory. TECHNIQUE: Digital bilateral breast sadie (3D mammographic acquisition) in the CC and MLO projections. 2-D mediolateral oblique (MLO) and craniocaudad (CC) views of both breasts were obtained. CAD: Full Field Digital Mammography with Computer Added Detection was performed. COMPARISON: Comparison is made with prior study dated 02/03/2020 and 12/09/2018. FINDINGS: Breast Composition: The breasts are heterogeneously dense, which may obscure small masses. There are no dominant masses or suspicious calcifications. Stable small benign-appearing bilateral axillary lymph nodes. No other significant abnormalities are identified. There has been no significant change since the prior study. BI/SCRN MAMM (CAD)W/SADIE BILAT IMPRESSION: Stable bilateral screening mammogram. Yearly follow-up mammogram recommended. (A) ASSESSMENT CATEGORY: BIRADS Category 2: Benign. A letter regarding these results will be sent to the patient by the facility within 30 days. Approximately 10% of breast cancers are not detected by mammography. A normal mammogram should not delay biopsy of a clinically suspicious abnormality. [id number] Electronically Signed: Josias Garcia MD at 15:59 EST , Service support ,
== END 2021-06-29 23:59 | disposition short-term general hospital (02) ==
PROVIDERS: PCP Family Medicine; Referring Provider Family Medicine; Visit Provider Family Medicine
DX: Z12.31 Encounter for screening mammogram for malignant neoplasm of breast (principal)
CPT/HCPCS: 77063; 77067

== ENCOUNTER → 2021-12-20 | Outpatient (CLI) | payer MEDICARE, SELFPAY ==
--- NOTE | 2021-12-20 16:27 | RAD_ITS ---
STUDY: X-RAY - RIGHT KNEE REASON FOR EXAM: Female, 71 years old. PAIN TECHNIQUE: 3 view(s) of the knee. COMPARISON: None. FINDINGS: There is demineralization of the visualized distal femur. There is demineralization of the tibia and fibula. Normal proximal tibiofibular articulation. There is mild degenerative arthrosis of the medial femorotibial compartment. There is mild degenerative arthrosis of the lateral femorotibial compartment. There is mild degenerative arthrosis of the patellofemoral articulation. The soft tissue structures are unremarkable. RAD/Knee 4 or More Views IMPRESSION: Demineralization with mild tricompartmental joint space loss. Electronically Signed: Emanuel Segovia DO at 18:41 EDT ,
== END | disposition home or self-care (01) ==
LOC: MTRAD 16:19
PROVIDERS: PCP Family Medicine; Referring Provider Family Medicine; Visit Provider Family Medicine
DX: M25.561 Pain in right knee (principal)
CPT/HCPCS: 73564

== ENCOUNTER → 2021-12-28 | Outpatient (CLI) | payer MEDICARE, SELFPAY ==
[2021-12-28 12:34] LABS: Anion Gap 10 (5-15); BUN 32 mg/dL (7-18); BUN/Creat Ratio 30.2 RATIO (10-20); Calcium,Total 9.2 mg/dL (8.5-10.1); Chloride 104 mmol/L (98-107); Cholesterol 139 mg/dL (200); Creatinine, Serum 1.06 mg/dL (0.55-1.02); EST Glomerular Filtration Rate 54 mL/min (>60); Est Glom Filt Rate - Afr Amer 66 mL/min (>60); Glucose 131 mg/dL (74-106); High Density Lipoprotein 49 mg/dL; Potassium 4.2 mmol/L (3.5-5.1); Sodium Level 138 mmol/L (136-145); Triglycerides 125 mg/dL; Very Low Density Lipoprotein 25 mg/dL (5-40)
== END | disposition home or self-care (01) ==
LOC: MTLAB 10:38
PROVIDERS: PCP Family Medicine; Referring Provider Family Medicine; Visit Provider Family Medicine
DX: E11.9 Type 2 diabetes mellitus without complications (principal)
CPT/HCPCS: 36415; 80048; 80061

== ENCOUNTER 2022-05-10 15:56 | Outpatient (CLI) | payer MEDICARE, SELFPAY ==
--- NOTE | 2022-05-10 15:59 | RAD_ITS ---
INDICATION: PAIN IN 3RD FINGER EXAMINATION/TECHNIQUE: X-RAY - RIGHT HAND XR Fingers Min 2 Views 3 VIEWS COMPARISON: None. FINDINGS: SOFT TISSUES: No soft tissue swelling or gas. No radiopaque foreign body. BONES/JOINTS: No acute fracture. Preservation of the joint spaces. No sclerotic or destructive changes observed. RAD/Finger(s) Min 2 Views IMPRESSION: Unremarkable study. Electronically Signed: Leno Cuello MD at 21:27 EST ,
== END 2022-05-10 23:59 | disposition home or self-care (01) ==
LOC: MTRAD 15:58
PROVIDERS: PCP Family Medicine; Referring Provider Family Medicine; Visit Provider Family Medicine
DX: M79.646 Pain in unspecified finger(s) (principal)
CPT/HCPCS: 73140

== ENCOUNTER → 2022-07-13 | Outpatient (CLI) | payer MEDICARE, SELFPAY ==
--- NOTE | 2022-07-13 15:35 | BI_ITS ---
MAMMOGRAPHY - BILATERAL SCREENING REASON FOR EXAM: Female, 72 years old. Routine annual screening examination. PERTINENT HISTORY: Non-contributory. TECHNIQUE: Digital bilateral breast sadie (3D mammographic acquisition) in the CC and MLO projections. 2-D mediolateral oblique (MLO) and craniocaudad (CC) views of both breasts were obtained. CAD: Full Field Digital Mammography with Computer Added Detection was performed. COMPARISON: Comparison is made with prior examination dated 06/29/2021 and 02/03/2020. FINDINGS: Breast Composition: The breasts are heterogeneously dense, which may obscure small masses. There are no dominant masses or suspicious calcifications. Stable small benign appearing bilateral axillary lymph nodes. No other significant abnormalities are identified. There has been no significant change since the prior study. BI/SCRN MAMM (CAD)W/SADIE BILAT IMPRESSION: Stable bilateral screening mammogram. Yearly follow-up mammogram recommended. (A) ASSESSMENT CATEGORY: BIRADS Category 2: Benign. A letter regarding these results will be sent to the patient by the facility within 30 days. Approximately 10% of breast cancers are not detected by mammography. A normal mammogram should not delay biopsy of a clinically suspicious abnormality. [id number] Electronically Signed: Josias Garcia MD at 11:01 EST ,
== END | disposition home or self-care (01) ==
PROVIDERS: PCP Family Medicine; Referring Provider Family Medicine; Visit Provider Family Medicine
DX: Z12.31 Encounter for screening mammogram for malignant neoplasm of breast (principal)
CPT/HCPCS: 77063; 77067

== ENCOUNTER → 2022-09-17 | Outpatient (CLI) | payer MEDICARE, SELFPAY ==
[2022-09-17 12:41] LABS: Vitamin D,25 Hydroxy 13.6 ng/mL
[2022-09-17 12:45] LABS: Anion Gap 3 (5-15); BUN 23 mg/dL (7-18); BUN/Creat Ratio 28.4 RATIO (10-20); Calcium,Total 9.2 mg/dL (8.5-10.1); Chloride 107 mmol/L (98-107); Cholesterol 193 mg/dL (200); Creatinine, Serum 0.81 mg/dL (0.55-1.02); EST Glomerular Filtration Rate 74 mL/min (>60); Est Glom Filt Rate - Afr Amer 90 mL/min (>60); Glucose 167 mg/dL (74-106); High Density Lipoprotein 47 mg/dL; Potassium 4.3 mmol/L (3.5-5.1); Sodium Level 138 mmol/L (136-145); Triglycerides 205 mg/dL; Very Low Density Lipoprotein 41 mg/dL (5-40)
[2022-09-17 13:38] LABS: Hemoglobin A1c 6.6 % (3.8-5.6)
== END | disposition home or self-care (01) ==
PROVIDERS: PCP Family Medicine; Referring Provider Family Medicine; Visit Provider Family Medicine
DX: Z00.00 Encounter for general adult medical examination without abnormal findings (principal); E11.9 Type 2 diabetes mellitus without complications; E55.9 Vitamin D deficiency, unspecified
CPT/HCPCS: 36415; 80048; 80061; 82306; 83036

== ENCOUNTER → 2022-11-01 | Outpatient (CLI) | payer MEDICARE, SELFPAY ==
--- NOTE | 2022-11-01 16:02 | BD_ITS ---
STUDY: DUAL ENERGY X-RAY ABSORPTIOMETRY / DXA REASON FOR EXAM: Female, 72 years old. [id number] TECHNIQUE: Bone Mineral Density (BMD) measurements of lumbar spine and bilateral hips were obtained. COMPARISON: Comparison is made with prior study dated November 24, 2013. FINDINGS: Lumbar Spine (L1-L4): g/cm2 (1.113) / T-score (0.6) / Z-score (2.8) Findings are suggestive of normal bone density with a low fracture risk. Left Femur Total: g/cm2 (0.845) / T-score (-0.8) / Z-score (0.8) Left Femoral Neck: g/cm2 (0.678) / T-score (-1.5) / Z-score (0.4) Right Femur Total: g/cm2 (0.875) / T-score (-0.5) / Z-score (1.0) Right Femoral Neck: g/cm2 (0.709) / T-score (-1.3) / Z-score (0.6) The T-Scores on the most recent prior examination were: Lumbar Spine (L1-L4): There has been improvement of bone density since the previous examination. Left Femur Total: which represents a worsening of 4.2%. Right Femur Total: which represents a worsening of 3.5%. BD/Dexa Bone Density Study IMPRESSION: The patient is considered osteopenic as outlined below according to World Geovanni Organization (WHO) criteria with a moderate fracture risk. There has been worsening of bone density since the previous examination. Reference Information: The T-score is the number of standard deviations above or below the standard which is normal for young adults at their peak bone mineral density. The World Health Organization (WHO) interprets the T-scores as follows: Above -1 Normal bone density Between -1 and -2.5 Osteopenia Equal to / or below -2.5 Osteoporosis As a practical clinical guideline, osteopenia may be graded as follows: Mild -1 through -1.5 Moderate -1.6 through -2.0 Severe -2.1 through -2.4 The Z-score is the number of standard deviations above or below age-matched controls. A Z-score of less than -1.5 would be considered abnormal. References: 1. NIH Osteoporosis and Related Bone Diseases www osteo.org 2. International Society for Clinical Densitometry www iscd.org 3. National Osteoporosis Foundation www nof.org Electronically Signed: Josias Garcia MD at 14:01 EDT ,
== END | disposition home or self-care (01) ==
LOC: OPBD 16:00
PROVIDERS: PCP Family Medicine; Referring Provider Family Medicine; Visit Provider Family Medicine
DX: Z00.00 Encounter for general adult medical examination without abnormal findings (principal); Z78.0 Asymptomatic menopausal state
CPT/HCPCS: 77080

== ENCOUNTER 2023-07-02 01:03 | Inpatient (IN) | payer MEDICARE, SELFPAY ==
[2023-07-02] VITALS (14 sets, daily range): BP systolic 122–175; BP diastolic 64–91; PULSE 76–112; RESP 12–17; TEMP 36.2–37.1; O2SAT 93–98; BMI 30.2; BMI 29.2
--- NOTE | 2023-07-02 01:12 | CT_ITS ---
We are attempting to reach an attending provider to discuss findings. An addendum with communication details will be sent when the communication is complete. EXAM: CT ANGIOGRAPHY HEAD AND NECK WITH INTRAVENOUS CONTRAST CLINICAL INDICATION: Neuro deficit, acute, stroke suspected TECHNIQUE: [place] [facility] [place]/head and neck CT angiography protocol performed with intravenous contrast. This CT exam was performed using one or more of the following dose reduction techniques: automated exposure control, adjustment of the mA and/or kV according to patient size, and/or use of iterative reconstruction technique. MIP reconstructed images were created and reviewed. CONTRAST: 100 cc Isovue-370 IV. RADIATION DOSE: CTDIvol = 21.63 mGy, DLP = 736.34 mGy-cm COMPARISON: MRA brain and neck 01/22/2015. FINDINGS: HEAD: RIGHT ANTERIOR CEREBRAL ARTERY: Unremarkable. No occlusion or significant stenosis. Anterior communicating artery is present. No aneurysm. RIGHT MIDDLE CEREBRAL ARTERY: Unremarkable. No occlusion or significant stenosis. No aneurysm. RIGHT POSTERIOR CEREBRAL ARTERY: Unremarkable. No occlusion or significant stenosis. No aneurysm. RIGHT INTRACRANIAL INTERNAL CAROTID ARTERY: Unremarkable. No significant stenosis. No dissection or occlusion. RIGHT INTRACRANIAL VERTEBRAL ARTERY: Terminates as the posterior inferior cerebellar artery. No significant stenosis. No dissection or occlusion. LEFT ANTERIOR CEREBRAL ARTERY: Unremarkable. No occlusion or significant stenosis. No aneurysm. LEFT MIDDLE CEREBRAL ARTERY: Unremarkable. No occlusion or significant stenosis. No aneurysm. LEFT POSTERIOR CEREBRAL ARTERY: Unremarkable. No occlusion or significant stenosis. No aneurysm. LEFT INTRACRANIAL INTERNAL CAROTID ARTERY: Unremarkable. No significant stenosis. No dissection or occlusion. LEFT INTRACRANIAL VERTEBRAL ARTERY: Dominant. No significant stenosis. No dissection or occlusion. BASILAR ARTERY: Unremarkable. No occlusion or significant stenosis. No aneurysm. OTHER VASCULATURE: No vascular malformation. NECK: RIGHT COMMON CAROTID ARTERY: Unremarkable. No significant stenosis. No dissection or occlusion. RIGHT EXTRACRANIAL INTERNAL CAROTID ARTERY: Unremarkable. No significant stenosis. No dissection or occlusion. RIGHT EXTERNAL CAROTID ARTERY: Unremarkable. No occlusion. RIGHT EXTRACRANIAL VERTEBRAL ARTERY: Unremarkable. No significant stenosis. No dissection or occlusion. LEFT COMMON CAROTID ARTERY: Unremarkable. No significant stenosis. No dissection or occlusion. LEFT EXTRACRANIAL INTERNAL CAROTID ARTERY: Unremarkable. No significant stenosis. No dissection or occlusion. LEFT EXTERNAL CAROTID ARTERY: Unremarkable. No occlusion. LEFT EXTRACRANIAL VERTEBRAL ARTERY: Dominant and. No significant stenosis. No dissection or occlusion. BRACHIOCEPHALIC AND SUBCLAVIAN ARTERIES: Unremarkable as visualized. No occlusion or significant stenosis. LUNG APICES: Unremarkable as visualized. HEAD and NECK: BONES/JOINTS: Unremarkable. No discrete lytic or blastic abnormalities. SOFT TISSUES: Unremarkable. CAROTID STENOSIS REFERENCE USING NASCET CRITERIA: % ICA stenosis = (1 - narrowest ICA diameter/diameter of distal cervical ICA) x 100. Mild - <50% stenosis. Moderate - 50-69% stenosis. Severe - 70-94% stenosis. Near occlusion - 95-99% stenosis. Occluded - 100% stenosis. CT/STROKE CTA Head AND Neck W/Con IMPRESSION: Negative CTA carotid and CTA brain. Electronically Signed: Johnny Christianson MD at 1:45 EST ,
--- NOTE | 2023-07-02 01:12 | CT_ITS ---
We are attempting to reach an attending provider to discuss findings. An addendum with communication details will be sent when the communication is complete. EXAM: CT HEAD WITHOUT INTRAVENOUS CONTRAST CLINICAL INDICATION: Neuro deficit, acute, stroke suspected TECHNIQUE: Multiple axial images were obtained of the head without intravenous contrast. This CT exam was performed using one or more of the following dose reduction techniques: automated exposure control, adjustment of the mA and/or kV according to patient size, and/or use of iterative reconstruction technique. COMPARISON: MR brain 01/22/2015. FINDINGS: BRAIN AND EXTRA-AXIAL SPACES: Unremarkable. No intra- or extra-axial hemorrhage. No evidence of acute infarct. No intracranial mass or mass effect. There is preservation of the logan/white matter interface. Posterior fossa structures are unremarkable. Ventricles are appropriate for age. No hydrocephalus. Basal cisterns are patent. BONES/JOINTS: Unremarkable. No discrete lytic or blastic abnormalities. SINUSES: Unremarkable as visualized. Clear. MASTOID AIR CELLS: Unremarkable. Clear. ORBITS: Visualized globes, extraocular muscles, optic nerves and retrobulbar fat appear unremarkable. CT/STROKE Brain/Head without Cont IMPRESSION: No acute intracranial abnormality. ASSESSMENT: ASPECTS ([place] Stroke Program Early CT Score) is 10. Electronically Signed: Johnny Christianson MD at 1:37 EST ,
--- NOTE | 2023-07-02 01:22 | RAD_ITS ---
EXAM: XR CHEST, 1 VIEW CLINICAL INDICATION: Neuro deficit, acute, stroke suspected TECHNIQUE: Frontal view of the chest. COMPARISON: 01/16/2021. FINDINGS: LUNGS AND PLEURAL SPACES: Unremarkable. No consolidation or edema. No pneumothorax. No effusion. HEART: Unremarkable. Cardiac silhouette not enlarged. MEDIASTINUM: Central airways and mediastinal contour are unremarkable. BONES/JOINTS: Unremarkable. No acute fracture. SOFT TISSUES: Unremarkable. RAD/Chest 1 View IMPRESSION: No acute cardiopulmonary abnormality. Electronically Signed: Johnny Christianson MD at 1:54 EST ,
[2023-07-02 01:23] LABS: Absolute Neutrophil Count 7.9 X10^3/uL (2.0-7.7); Basophil# 0.15 X10^3/uL; Basophil% 0.8 % (0-1); Eosinophil# 0.25 X10^3/uL; Eosinophils% 1.3 % (0-5); Hematocrit 36.9 % (37-47); Lymphocyte % 46.7 % (19-41); Mean Corp Hgb Conc 32.5 g/dL (32-36); Mean Corpuscular Hgb 29.3 pg (27.0-32.0); Mean Platelet Vol. 9.2 fl (6.2-12.0); Monocyte# 1.57 X10^3/uL; Monocyte% 8.4 % (0-10); NRBC Flagged by Analyzer 0 % (0-5); Neutrophil # 7.91 X10^3/uL (2.7-7.7); Neutrophil % 42.5 % (47-70); POSITIVE DIFFERENTIAL YES; Platelet Count 598 K/mm3 (150-450); RBC Distribution Width CV 12.5 % (11.6-14.6); RBC Distribution Width SD 40.6 fl (35.1-43.9); White Blood Count 18.6 K/mm3 (4.4-11.0)
--- OUTSIDE RECORDS SUMMARY | 2023-07-02 01:26 | XMS RPT_ITS | CCD ---
Author Name Unknown Address [address] [facility] [address] [place] [address] Organization [facility] Care Team Providers Care Electrical Laboratory Technician Name Role Phone Jeremiah Zamudio MD Primary Care Provider JEREMIAH ZAMUDIO Primary Care Unavailable Noble PADILLA Attending Unavailable JEREMIAH ZAMUDIO Primary Care Unavailable Noble PADILLA Referring Unavailable JEREMIAH ZAMUDIO Primary Care Unavailable JEREMIAH ZAMUDIO Primary Care Unavailable Noble PADILLA Referring Unavailable Allergies Allergy Classification Reported Allergen(s) Allergy Type Date of Onset Reaction(s) Facility (11 sources) Metoprolol; Translations: [METOPROLOL SUCCINATE] Drug Allergy 2 Other: See Comments [facility] Work Phone: (11 sources) NITROFURANTOIN, MACROCRYSTALS / Nitrofurantoin, Monohydrate; Translations: [NITROFURANTOIN MONOHYD/M-CRYST] Drug Allergy 1 Unknown [facility] Work Phone: (4 sources) Penicillins; Translations: [PENICILLINS] Propensity to adverse reactions 9 [facility] Work Phone: (7 sources) Penicillins Propensity to adverse reactions 9 [facility] Work Phone: Medications Current Medications Medication Drug Class(es) Dates Sig (Normalized) Sig (Original) iv contrast (will be provided with radiology test) (2 sources) Start: 07-30-2022 End: 07-31-2022 iv contrast (will be provided with radiology test) Indications: Biliary cyst MRI PANC/ESPERANZA Inject, intravenously, once for 1 dose. No IV access, insert saline lock prior to the beginning of sedation, infusion, injection of imaging exam. Discontinue saline lock post exam. If Pt. has a central line or IVAD, may access for administration according to line specific nursing protocol. Once exam is complete flush line and de-access according to line specific nursing protocol in the MR contrast administration guidelines link. 1 Each 0 07/30/2022 07/31/2022 Active Completed/Discontinued Medications Medication Drug Class(es) Dates Sig (Normalized) Sig (Original) acetaminophen 325 mg oral capsule (10 sources) acetaminophen 32 5 mg cap Take 1 capsule by mouth as needed. 0 Active Problems Active Problems Problem Classification Problem Date Documented Date Episodic/Chronic Adjustment disorders (10 sources) Adjustment disorder with anxious mood; Translations: [Adjustment disorder with anxiety] Onset: 06-13-2011 06-05-2021 Chronic Biliary tract disease (3 sources) Cyst of biliary tract; 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] Onset: 10-09-2022 Chronic Esophageal disorders (10 sources) Gastroesophageal reflux disease; Translations: [Gastro-esophageal reflux disease without esophagitis] Onset: 06-13-2011 06-13-2011 Chronic Essential hypertension (10 sources) Essential hypertension; Translations: [Essential (primary) hypertension] Onset: 11-10-2019 11-10-2019 Chronic Other upper respiratory disease (10 sources) Seasonal allergy; Translations: [Other seasonal allergic rhinitis] Onset: 06-13-2011 06-13-2011 Chronic Regional enteritis and ulcerative colitis (11 sources) Proctitis; Translations: [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] Onset: 06-13-2011 06-05-2021 Chronic Past or Other Problems Problem Classification Problem Date Documented Da te Episodic/Chronic Diabetes mellitus without complication (10 sources) Impaired fasting glycemia; Translations: [Impaired fasting glucose] Onset: 06-13-2011 06-05-2021 Episodic Neoplasms of unspecified nature or uncertain behavior (4 sources) Benign neoplasm of pancreas; Translations: [Neoplasm of unspecified behavior of digestive system] Onset: 10-10-2022 Episodic Other and unspecified benign neoplasm (10 sources) Polyp of colon; Translations: [Polyp of colon] Onset: 06-13-2011 06-05-2021 Episodic Pancreatic disorders (not diabetes) (12 sources) Cyst of pancreas; Translations: [Cyst of pancreas] Onset: 11-12-2019 Episodic Results Test Name Value Interpretation Reference Range Facil ity Vital Signs Date Time Vital Sign Value Performing Clinician Faci lity 11-06-2022 15:25-0400 Body temperature 97.9 [degF] SUDHIR Padilla MD Work Phone: [facility] 11-06-2022 15:25-0400 Body weight 71.71 kg SUDHIR Padilla MD Work Phone: [facility] 11-06-2022 15:25-0400 Diastolic blood pressure 88 mm[Hg] SUDHIR Padilla MD Work Phone: [facility] 11-06-2022 15:25-0400 Heart rate 107 /min SUDHIR Padilla MD Work Phone: [facility] 11-06-2022 15:25-0400 Respiratory rate 18 /min SUDHIR Padilla MD Work Phone: [facility] 11-06-2022 15:25-0400 SaO2% (BldA) [Mass fraction] 96 % SUDHIR Padilla MD Work Phone: [facility] 11-06-2022 15:25-0400 Systolic blood pressure 137 mm[Hg] SUDHIR Padilla MD Work Phone: [facility] 11-07-2021 12:53-0400 Body temperature 97.3 [degF] SUDHIR Padilla MD Work Phone: [facility] 11-07-2021 12:53-0400 Body weight 72.71 kg SUDHIR Padilla MD Work Phone: [facility] 11-07-2021 12:53-0400 Diastolic blood pressure 78 mm[Hg] SUDHIR Padilla MD Work Phone: [facility] 11-07-2021 12:53-0400 Heart rate 114 /min SUDHIR Padilla MD Work Phone: [facility] 11-07-2021 12:53-0400 Respiratory rate 20 /min SUDHIR Padilla MD Work Phone: [facility] 11-07-2021 12:53-0400 SaO2% (BldA) [Mass fraction] 97 % SUDHIR Padilla MD Work Phone: [facility] 11-07-2021 12:53-0400 Systolic blood pressure 141 mm[Hg] SUDHIR Padilla MD Work Phone: [facility] Encounters Encounter Date Encounter Type Care Provider Facility Start: 04-17-2023 End: 04-17-2023 ambulatory JEREMIAH Noble ZAMUDIO Facility:[facility] Start: 11-06-2022 End: 11-07-2022 ambulatory Noble PADILLA Facility:[facility] Start: 11-06-2022 End: 11-07-2022 Patient encounter procedure R Mian Padilla MD Work Phone: General Surgery Procedures Date Procedure Procedure Detail Performing Clinician Start: 10-09-2022 Mri abdomen w/o & w/contrast material Italia Mohan RN Work Phone: Start: 10-16-2021 Mri abdomen w/o & w/contrast material Italia Mohan RN Work Phone: Start: 06-20-2011 Mammography Italia Mohan RN Work Phone: Start: 02-28-2011 Lipid 1996 panel - S ct or Plasma Mri (I-Stat/1.5t) Work Phone: Start: 11-11-2003 Colonoscopy Italia Mohan RN Work Phone: Plan of Treatment Date Care Activity Detail Author Start: 02-08-2023 Covid-19 Vaccine ( season) Covid-19 Vaccine () [facility] Start: 02-08-2023 Influenza vaccination C [facility] Start: 11-15-2022 DIABETES SCREEN DIABETES SCREEN [facility] Start: 11-15-2022 Diabetes Screening Diabetes Screenin g [facility] Start: 09-18-2022 End: 11-18-2022 Cancer Ag 19-9 [Units/volume] in Serum or Plasma CA 19-9 BLD Lab Routine IPMN (intraductal papillary mucinous neoplasm) Expected: 09/18/2022, Expires: 11/18/2022 [facility] Work Phone: Immunizations Immunization Date Immunization Notes Care Provider Fa cility 04-14-2020 influenza virus vacc ine, unspecified formulation Mri (I-Stat/1.5t) Work Phone: [facility] 11-10-2019 haemophilus influenz ae type b vaccine, PRP-T conjugate Italia Mohan RN Work Phone: [facility] Work Phone: 11-10-2019 meningococcal oligosaccharide (groups A, C, Y and W-135) diphtheria toxoid conjugate vaccine (MCV4O) Italia Mohan RN Work Phone: [facility] Work Phone: 11-10-2019 pneumococcal conjuga te vaccine, 13 valent Italia Mohan RN Work Phone: [facility] Work Phone: 04-15-2015 zoster vaccine, live Italia kemp RN Work Phone: [facility] 02-25-2014 influenza, seasonal, injectable Italia Mohan RN Work Phone: [facility] 02-08-2013 influenza, seasonal, injectable Italia Mohan RN Work Phone: [facility] Payers Date Payer Category Payer Unknown [id number] 2021 Medicare MMO MEDICARE MMO MED[employer]ANTAGE O [id number] 2021-Present [phone] [address] [place] [address] [facility] [id number] 2021 Medicare [id number] 2018 Unknown MMO MMO [employer] [id number] 2018-Present [phone] [address] [place] [address] O [id number] Social History Date Type Detail Facility Start: 08-03-2010 Tobacco smoking stat RUSTIS Never smoked tobacco [facility] Work Phone: Start: 08-03-2010 Tobacco use and exposure Smoke less tobacco non-user [facility] Work Phone: Start: 12-01-2019 End: 11-07-2021 Alcohol intake Current drinker of alcohol (finding) [facility] Start: 06-13-2011 History SDOH Alcohol Comment 1-2 drinks a week [facility] Start: 11-13-2019 History SDOH Financial 4 [facility] Start: 11-13-2019 History SDOH Food Worry 1 [facility] Start: 11-13-2019 History SDOH Transport Med 2 [facility] Start: 1950 Sex Assigned At Not on file C [facility] Start: 08-27-2021 End: 11-07-2021 Exposure to SARS-CoV-2 (event) Not sure [facility] Start: 11-07-2021 End: 07-06-2022 History of Social function [facility] Work Phone: Start: 11-07-2021 End: 07-06-2022 Tobacco use panel [facility] Work Phone: How hard is it for y ou to pay for the very basics like food, housing, medical care, and heating Not very hard [facility] Work Phone: (I/We) worried wheth er (my/our) food would run out before (I/we) got money to buy more. Never true [facility] Work Phone: In the past 12 month s, has lack of transportation kept you from medical appointments or from getting medications? No [facility] Work Phone: Clinical Notes 06-13-2011 to 04-17-2023 R Mian Padilla MD - 11/06/2022 3:28 PM Jaenine Montaño RT(R) - 10/09/2022 10:00 AM EDTTelephone Encounter - Italia Mohan RN - 09/18/2022 3:54 PM EDTR Mian Padilla MD - 11/07/2021 1:51 PM EDT Note Date & Type Note Facility 04-17-2023 Note HNO ID: [id number] Author: Nadiya High APRN.[employer] Service: ? Author Type: Nurse Practitioner Type: Progress Notes Filed: 04/17/2023 7:43 PM Note Text: Subjective The history is provided by the patient. No american sign language interpreter was used. JACOB Calderon is a 73 year old female who presents today for CC of painful and frequent urination for 3 days Positive for Dysuria, Increase in frequency of urination, and Urgency, Negative for Sense of incomplete void, Fevers, Vomiting, Diarrhea, Abdominal pain , Back/Flank pain, Blood in urine, and Vaginal itch or discharge Chance of : No Last intercourse: n/a Any self-treatment attempted: Yes Number of previous UTI's in last 6 months:0 Number of previous UTI's in last 12 months: 0 Aggravating Factors: voiding Alleviating Factors include Increasing fluids and cranberry juice with minimal relief in symptoms. BP 130/78 Pulse 112 Temp 36.7 ?C (98 ?F) (Tympanic) Resp 18 Wt 72.8 kg (160 lb 6.4 oz) SpO2 96% BMI 29.34 kg/m? Social History Tobacco Use Smoking status: Never Smokeless tobacco: Never Substance Use Topics Alcohol use: Yes Comment: 1-2 drinks a week Drug use: No PAST MEDICAL HISTORY Diagnosis Date Anxiety Essential hypertension 11/10/2019 GERD (gastroesophageal reflux disease) 06/13/2011 Tachycardia Ulcerative proctitis (HCC) 06/13/2011 Distant; Not active for many years, at time of intake physical 06/2011 I have confirmed and edited as necessary, the [facility] Review of Systems Constitutional: Negative for chills and fever. Gastrointestinal: Negative for abdominal pain. Genitourinary: Negative for dysuria, flank pain, frequency, hematuria and urgency. Objective Physical Exam Vitals and nursing note reviewed. Constitutional: Appearance: Normal appearance. Abdominal: General: Bowel sounds are normal. There is no abdominal bruit. Palpations: Abdomen is not rigid. There is no mass or pulsatile mass. Tenderness: There is no abdominal tenderness. There is no guarding or rebound. Negative signs include Martinez's sign and McBurney's sign. Neurological: Mental Status: She is alert and oriented to person, place, and time. Psychiatric: Mood and Affect: Affect normal. Component Latest Ref Rng AND Units 04/17/2023 GLUCOSE UA (POCT) Negative mg/dL Negative BILIRUBIN UA (POCT) Negative Negative KETONE UA (POCT) Negative mg/dL Negative SPECIFIC GRAVITY UA (POCT) 1.005 - 1.030 1.025 HEMOGLOBIN/BLOOD UA (POCT) Negative Moderate (A) PH UA (POCT) 4.5 - 8.0 5.5 PROTEIN UA (POCT) Negative mg/dL 100 (A) UROBILINOGEN UA (POCT) Normal E.U./dL 0.2 NITRITE UA (POCT) Negative Negative LEUKOCYTES UA (POCT) Negative Small (A) COLOR UA (POCT) Yellow CLARITY UA (POCT) Cloudy ASSESSMENT/PLAN: 1. Acute UTI - ICD9: 599.0, ICD10: N39.0 (primary diagnosis) acute - UA positive for brittney esterase, hematuria, and proteinuria - Send urine for culture - will call if need to change antibiotic - Begin treatment with keflex for 7 days - Patient education for prevention given 2. Urinary frequency - ICD9: 788.41, ICD10: R35.0 - UA DIP, URINE (POC) - URINE CULTURE Diagnosis and treatment plan were discussed and questions were answered to the patient's satisfaction. Pt acknowledged understanding of concepts and follow up plan. Specific signs and symptoms that would indicate the need for higher level of care were discussed in detail warranting prompt ER evaluation. Nadiya High APRN.[facility] 11-06-2022 Note HNO ID: [id number] Author: Noble Padilla MD Service: ? 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 several complaints, none seemingly related to the pancreas. clinically stable. MRI and CA 19-9 stable. 15 min visit. follow up one year. Vimal Padilla MD [facility] 11-06-2022 History of Presen t illness Narrative interval visit for Mrs Calderon post distal pancreatectomy in 2019 for mixed type with HGD. several complaints, none seemingly related to the pancreas. clinically stable. MRI and CA 19-9 stable. 15 min visit. follow up one year. Vimal Padilla MD documented in this encounter [facility] 10-09-2022 Note HNO ID: [id number] Author: RT Nilda(R) Service: ? Author Type: Technologist Type: Progress Notes Filed: 10/09/2022 10:15 AM Note Text: Radiology Service Progress Note DATE OF SERVICE: October 09, 2022 TIME: 10:15 AM PATIENT IDENTITY VERIFICATION COMPLETED USING TWO (2) STANDARD IDENTIFIERS: Name and Date of confirmed by patient verbally. FALL SCREENING: Has the patient had 2 falls in the last year or 1 fall with injury or currently using an Ambulatory Assistive Device (Walker, Cane, Wheelchair, Crutches, etc.)? No PATIENT GENDER DATA: Female. status: : No status: NO. PATIENT RELEVANT IMPLANT DATA REVIEWED: Yes ALLERGIES: Reviewed and unchanged CONTRAST ALLERGY: NO. EXAM: MRI - CONTRAST TYPE: GROUP II PERIPHERAL IV DATA: Ambulatory: A peripheral IV was started in the Left antecubital site with a Angio cath: 22 gauge. RADIOLOGY DEPARTMENT: MR; Exam(s) Completed: Body: Pancreas/Biliary SIGNATURE: RT Nilda(R) PATIENT NAME: Noble Calderon DATE: October 09, 2022 TIME: 10:15 AM [facility] 10-09-2022 History of Presen t illness Narrative Radiology Service Progress Note DATE OF SERVICE: October 09, 2022 TIME: 10:15 AM PATIENT IDENTITY VERIFICATION COMPLETED USING TWO (2) STANDARD IDENTIFIERS: Name and Date of confirmed by patient verbally. FALL SCREENING: Has the patient had 2 falls in the last year or 1 fall with injury or currently using an Ambulatory Assistive Device (Walker, Cane, Wheelchair, Crutches, etc.)? No PATIENT GENDER DATA: Female. status: : No status: NO. PATIENT RELEVANT IMPLANT DATA REVIEWED: Yes ALLERGIES: Reviewed and unchanged CONTRAST ALLERGY: NO. EXAM: MRI - CONTRAST TYPE: GROUP II PERIPHERAL IV DATA: Ambulatory: A peripheral IV was started in the Left antecubital site with a Angio cath: 22 gauge. RADIOLOGY DEPARTMENT: MR; Exam(s) Completed: Body: Pancreas/Biliary SIGNATURE: RT Nilda(R) PATIENT NAME: Noble Calderon DATE: October 09, 2022 TIME: 10:15 AM documented in this encounter [facility] 09-18-2022 Miscellaneous Notes Formattin g of this note might be different from the original. Orders are placed for bloodwork Patient wants blood work to be placed for appointment with (CA-19) documented in this encounter [facility] 09-07-2022 Miscellaneous Notes Formattin g of this note might be different from the original. Pt wanted to update office she schedule an in person visit for 11/06. documented in this encounter [facility] 09-07-2022 Miscellaneous Notes Formattin g of this note might be different from the original. Left VM to have patient schedule mri and then can work on prior auth once scheduled Pt is calling in stating that she need prior authorization sent to her insurance before she get the MRI. Pt can be reached at [phone] documented in this encounter [facility] 11-07-2021 History of Presen t illness Narrative [facility] STAFF PHYSICIAN NOTE OF PERSONAL INVOLVEMENT IN CARE I have reviewed the progress note obtained and documented by the resident and I personally participated in the edward components. I have discussed the case and management of the patient's care. The following comments revise or confirm relevant edward components of the note. 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 clinically fine, but may have long Covid. wt stable. diabetic on metformin. MRI stable: SB IPMN in remnant. CA 19-9:8 PLAN: follow up in one year with MRI and CA 19-9 Medical Decision Making Vimal Padilla MD Date of Service: November 07, 2021 Time of Service: 1:51 PM Pancreatic Cyst Follow Up PATIENT NAME: Noble Calderon DATE of SERVICE: 11/07/2021 TIME of SERVICE: 1:40 PM HPI Presumed Diagnosis of Cyst: Mixed type IPMN REVIEW OF SYSTEMS GENERAL: No weight loss, malaise or fevers RESPIRATORY: Negative for cough, hemoptysis, wheezing, COPD, dyspnea or shortness of breath CARDIOVASCULAR: Reports intermittent edema. Negative for CP, HTN, palpitaitons GI: No nausea, vomiting, PO intolerance. Very occasional diarrhea. ENDOCRINE: New diagnosis of T2DM since 01/2021, on metformin, most recent HbA1C 6.5%. PHYSICAL EXAM General Appearance: Well appearing, alert, in no acute distress, well-hydrated, well nourished.. Skin: Skin color, texture, turgor normal, no suspicious rashes or lesions. Lungs: Unlabored on room air. Heart: Warm and well perfused. Abdomen: Abdomen soft, non-distended, non-tender. SOCIAL HISTORY Patient is currently smoking: No Patient is currently using alcohol: Yes, very rarely Surgical intervention for cyst: Yes, Distal Pancreatectomy - /splenectomy 11/12/2019 for prior pancreatic tail cyst. Pathology mixed type IPMN, low grade and focal high grade dysplasia, no evidence of invasive carcinoma. EUS: No Date and Type of Most Recent Imaging Characteristics: MRI: 10/16/2021 LOCATION: Head: Yes, largest size: 7 mm. 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 CA-19-9 8. PLAN - Continue surveillance with yearly MRI, CA-19-9. Return in 1 year. I reviewed MRI and blood work results in detail with Noble Calderon and the recommendation to continue surveillance, future orders placed in [facility]. I discussed pancreatic cysts in detail, and the potential need to continue to follow this process with surveillance imaging to rule out any growth of change of the cyst(s)/pancreatic duct/pancreas. The majority of the visit was spent counseling, teaching and/or coordinating care for the patient. [id number] time was 30 minutes. Seen and discussed with Dr. Padilla. Paloma Rodriguez MD 1:40 PM 11/07/2021 documented in this encounter [facility] 10-16-2021 History of Presen t illness Narrative Radiology Service Progress Note DATE OF SERVICE: October 16, 2021 TIME: 11:25 AM PATIENT IDENTITY VERIFICATION COMPLETED USING TWO (2) STANDARD IDENTIFIERS: Name and Date of confirmed by patient verbally. FALL SCREENING: Has the patient had 2 falls in the last year or 1 fall with injury or currently using an Ambulatory Assistive Device (Walker, Cane, Wheelchair, Crutches, etc.)? No PATIENT GENDER DATA: Female. status: : No status: NO. PATIENT RELEVANT IMPLANT DATA REVIEWED: Yes ALLERGIES: Reviewed and unchanged CONTRAST ALLERGY: NO. EXAM: MRI - CONTRAST TYPE: GROUP II PERIPHERAL IV DATA: Ambulatory: A peripheral IV was started in the Left forearm with a Angio cath: 22 gauge. RADIOLOGY DEPARTMENT: MR; Exam(s) Completed: Body: Pancreas/Biliary SIGNATURE: RT Nilda(R) PATIENT NAME: Noble Calderon DATE: October 16, 2021 TIME: 11:25 AM documented in this encounter [facility] documented as of this encounter (statuses as of 09/06/2021) [facility]01-04-2012 History of Past illness Narrative* Problem Noted Date Resolved Date Routine gynecological examination 06/13/2011 09/18/2011 documented as of this encounter (statuses as of 10/17/2021) [address]04-2012 History of Past illness Narrative* Problem Noted Date Resolved Date Routine gynecological examination 06/13/2011 09/18/2011 documented as of this encounter (statuses as of 11/08/2021) [address]04-2012 History of Past illness Narrative* Problem Noted Date Resolved Date Routine gynecological examination 06/13/2011 09/18/2011 documented as of this encounter (statuses as of 07/31/2022) [address]04-2012 History of Past illness Narrative* Problem Noted Date Resolved Date Routine gynecological examination 06/13/2011 09/18/2011 documented as of this encounter (statuses as of 09/07/2022) [facility] History of Past illness Narrative* Problem Noted Date Resolved Date Routine gynecological examination 06/13/2011 09/18/2011 documented as of this encounter (statuses as of 09/12/2022) [facility] History of Past illness Narrative* Problem Noted Date Resolved Date Routine gynecological examination 06/13/2011 09/18/2011 documented as of this encounter (statuses as of 09/19/2022) [address] History of Past illness Narrative* Problem Noted Date Resolved Date Routine gynecological examination 06/13/2011 09/18/2011 documented as of this encounter (statuses as of 09/19/2022) [address]04-2012 History of Past illness Narrative* Problem Noted Date Resolved Date Routine gynecological examination 06/13/2011 09/18/2011 documented as of this encounter (statuses as of 11/13/2022) [address]04-2012 History of Past illness Narrative* Problem Noted Date Diagnosed Date Resolved Date Routine gynecological examination 06/13/2011 09/18/2011 documented as of this encounter (statuses as of 04/14/2023) [facility] note* Diagnosis Pancreatic cyst Cyst and pseudocyst of pancreas documented in this encounter [facility] note* Diagnosis Pancreatic cyst Cyst and pseudocyst of pancreas documented in this encounter [facility] note* Diagnosis IPMN (intraductal papillary mucinous neoplasm)- Primary Neoplasm of unspecified nature of digestive system documented in this encounter [facility] note* Diagnosis Biliary cyst- Primary Other specified disorder of gallbladder documented in this encounter [facility] note* Diagnosis IPMN (intraductal papillary mucinous neoplasm)- Primary Neoplasm of unspecified nature of digestive system documented in this encounter [facility] note* Diagnosis IPMN (intraductal papillary mucinous neoplasm)- Primary Neoplasm of unspecified nature of digestive system Ulcerative proctitis with other complication (HCC) documented in this encounter [facility] note* Diagnosis Biliary cyst Other specified disorder of gallbladder documented in this encounter [facility] Reason for Referral Specialty Diagnoses / Procedures Referred By Contac t Referred To Contact MR IMAGING Diagnoses Pancreatic cyst Procedures MRI PANC/ESPERANZA WO/W IVCON MRI ABDOMEN W/O & W/CONTRAST MATERIAL Noble Padilla MD [address] [place] [address] Mr Imaging Referral ID Status Reason Start Date Expiration Date Visits Requested Visits Authorized [id number] Pending Review Auto-Generat ed Referral 09/06/2021 10/06/2022 1 1 Referral ID Status Reason Start Date Expiration Date V isits Requested Visits Authorized [id number] Closed Auto-Generate d Referral 09/06/2021 11/13/2021 1 1 Specialty Diagnoses / Procedures Referred By Contac t Referred To Contact MR IMAGING Diagnoses Biliary cyst Procedures MRI PANC/ESPERANZA WO/W IVCON MRI ABDOMEN W/O & W/CONTRAST MATERIAL Noble Padilla MD [address] [place], [place] [id number] Mr Imaging Referral ID Status Reason Start Date Expiration Date Visits Requested Visits Authorized [id number] Pending Review Auto-Generat ed Referral 07/30/2022 08/29/2023 1 1 Specialty Diagnoses / Procedures Referred By Zully t Referred To Contact MR IMAGING Diagnoses Biliary cyst Procedures MRI PANC/ESPERANZA WO/W IVCON MRI ABDOMEN W/O & [place] [address] [place] [address] [place] [id number] Referral ID Status Reason Start Date Expiration Date V isits Requested Visits Authorized [id number] Closed Auto-Generate d Referral 07/30/2022 08/29/2023 1 1 Advance Directives No Advanced Directives Records FoundDocuments on File Type Date Recorded 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 Advance Directive(s) 11/10/2019 2:45 PM Advance Directive(s) 11/10/2019 2:56 PM Advance Directive(s) 10/26/2019 10:54 AM Documents on File Type Date Recorded 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 Advance Directive(s) 11/10/2019 2:45 PM Advance Directive(s) 11/10/2019 2:56 PM Advance Directive(s) 10/26/2019 10:54 AM Documents on File Type Date Recorded 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 Advance Directive(s) 11/10/2019 2:45 PM Documents on File Type Date Recorded 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 Advance Directive(s) 11/10/2019 2:45 PM Summary Purpose Family History No Family History Records Found Additional Source Comments Source Comments (unrecognize d section and content) In the event this informatio n is protected by the Federal Confidentiality of Alcohol and Drug Abuse Patient Records regulations: The Federal rules restrict any use of the information to criminally investigate or prosecute any alcohol or drug abuse patient.[facility] the event this information is protected by the Federal Confidentiality of Alcohol and Drug Abuse Patient Records regulations: The Federal rules restrict any use of the information to criminally investigate or prosecute any alcohol or drug abuse patient.[facility] the event this information is protected by the Federal Confidentiality of Alcohol and Drug Abuse Patient Records regulations: The Federal rules restrict any use of the information to criminally investigate or prosecute any alcohol or drug abuse patient.[facility] the event this information is protected by the Federal Confidentiality of Alcohol and Drug Abuse Patient Records regulations: The Federal rules restrict any use of the information to criminally investigate or prosecute any alcohol or drug abuse patient.[facility] the event this information is protected by the Federal Confidentiality of Alcohol and Drug Abuse Patient Records regulations: The Federal rules restrict any use of the information to criminally investigate or prosecute any alcohol or drug abuse patient.[facility] the event this information is protected by the Federal Confidentiality of Alcohol and Drug Abuse Patient Records regulations: The Federal rules restrict any use of the information to criminally investigate or prosecute any alcohol or drug abuse patient.[facility] the event this information is protected by the Federal Confidentiality of Alcohol and Drug Abuse Patient Records regulations: The Federal rules restrict any use of the information to criminally investigate or prosecute any alcohol or drug abuse patient.[facility] the event this information is protected by the Federal Confidentiality of Alcohol and Drug Abuse Patient Records regulations: The Federal rules restrict any use of the information to criminally investigate or prosecute any alcohol or drug abuse patient.[facility] the event this information is protected by the Federal Confidentiality of Alcohol and Drug Abuse Patient Records regulations: The Federal rules restrict any use of the information to criminally investigate or prosecute any alcohol or drug abuse patient.[facility] the event this information is protected by the Federal Confidentiality of Alcohol and Drug Abuse Patient Records regulations: The Federal rules restrict any use of the information to criminally investigate or prosecute any alcohol or drug abuse patient.[facility] Care Teams (unrecognized sec tion and content) Electrical Laboratory Technician Relationship Specialty Start Date End Date Jeremiah Zamudio MD PCP - General Family Practice 09/18/11 Electrical Laboratory Technician Relationship Specialty Start Date End Date Jeremiah Zamudio MD PCP - General Family Practice 09/18/11 Electrical Laboratory Technician Relationship Specialty Start Date End Date Jeremiah Zamudio MD PCP - General Family Medicine 09/18/11 Electrical Laboratory Technician Relationship Specialty Start Date End Date Jeremiah Zamudio MD PCP - General Family Medicine 09/18/11 Electrical Laboratory Technician Relationship Specialty Start Date End Date Jeremiah Zamudio MD PCP - General Family Medicine 09/18/11 Electrical Laboratory Technician Relationship Specialty Start Date End Date Jeremiah Zamudio MD PCP - General Family Medicine 09/18/11 Electrical Laboratory Technician Relationship Specialty Start Date End Date Jeremiah Zamudio MD PCP - General Family Medicine 09/18/11 Reason for Visit (unrecogniz ed section and content) Referral ID Status Reason Start Date Expiration Date V isits Requested Visits Authorized [id number] Closed Auto-Generate d Referral 09/06/2021 11/13/2021 1 1 Reason Comments Established Patient Reason Comments Appointment Orders Reason Comments Appointment Reason Comments Patient Update Specialty Diagnoses / Procedures Referred By Contac t Referred To Contact MR IMAGING Diagnoses Biliary cyst Procedures MRI PANC/ESPERANZA WO/W IVCON MRI ABDOMEN W/O & [place] [address] [place] [address] [place] [id number] Referral ID Status Reason Start Date Expiration Date V isits Requested Visits Authorized [id number] Closed Auto-Generate d Referral 07/30/2022 08/29/2023 1 1 INFORMATION SOURCE (unrecogn ized section and content) FOR RECORDS PERTAINING TO PATIENTS WHO ARE OR HAVE BEEN ENROLLED IN A CHEMICAL DEPENDENCY/SUBSTANCEABUSE PROGRAM, SOME INFORMATION MAY BE OMITTED. This clinical summary was aggregated from multiple sources. Caution should be exercised in using it in the provision of clinical care. This summary normalizes information from multiple sources, and as a consequence, information in this document may materially change the coding, format and clinical context of patient data. In addition, data may be omitted in some cases. CLINICAL DECISIONS SHOULD BE BASED ON THE PRIMARY CLINICAL RECORDS. [email or web address] [facility]. provides no warranty or guarantee of the accuracy or completeness of information in this document.
[2023-07-02 01:33] LABS: Bedside Glucose 89 mg/dL (74-106)
[2023-07-02 01:35] LABS: Anion Gap 7 (5-15); BUN 19 mg/dL (7-18); BUN/Creat Ratio 17.3 RATIO (10-20); Calcium,Total 9.6 mg/dL (8.5-10.1); Chloride 107 mmol/L (98-107); EST Glomerular Filtration Rate 52 mL/min (>60); Est Glom Filt Rate - Afr Amer 63 mL/min (>60); Estimated Creatinine Clearance 43.83 ml/min; Glucose 107 mg/dL (74-106); Magnesium 2.2 mg/dL (1.6-2.6); Potassium 3.9 mmol/L (3.5-5.1); Sodium Level 140 mmol/L (136-145)
[2023-07-02 01:40] LABS: Differential Indicated SCAN CRITERIA MET
[2023-07-02 01:41] LABS: Partial Thromboplast Time 23.2 Seconds (24.1-36.2)
[2023-07-02 01:49] LABS: International Normalized Ratio 0.9; Prothrombin Time (Protime)PT. 12.4 SECONDS (11.7-14.9)
[2023-07-02 02:00] LABS: Differential Comment SCANNED
--- NOTE | 2023-07-02 02:24 | EDS_ITS ---
HPI History of Present Illness Chief Complaint: Stroke Alert Informant: patient and spouse/S.O. Narrative Narrative: Patient is a 73-year-old female with past medical history of hypertension [id number] diabetes and gastritis. She states 2 to 3 hours prior to arrival she began to feel numbness and tingling to the right side of her face as well as noted blurry/change of vision. She states she was dizzy with this. She states she tried to rest and see if the symptoms would resolve but they would not do so and secondary to this the patient presents to the hospital for evaluation [facility] Medical History (Updated 07/02/23 @ 03:[address] Dain Wheeler, DO) 2/ spleen & pancreas removed Dermatitis Diabetes mellitus Hypertension Pigmented purpuric dermatosis Thrombocytosis Home Medications clonazepam 0.5 mg disintegrating tablet 0.5 mg PO QHS 01/22/15 [History Last Taken Unknown] trazodone 50 mg tablet 50 mg PO QHS 01/22/15 [History Last Taken Unknown] amlodipine 5 mg tablet 5 mg PO DAILY 09/20/20 [History Last Taken Unknown] fluoxetine 20 mg capsule 20 mg PO DAILY 09/20/20 [History Last Taken Unknown] losartan 100 mg tablet 100 mg PO DAILY 09/20/20 [History Last Taken Unknown] cranberry concentrate-ascorbic acid 140 mg-100 mg capsule 1 tablet PO DAILY 09/22/20 [History Last Taken Unknown] aspirin 81 mg tablet,delayed release (Adult Aspirin Regimen) 81 mg PO DAILY 07/02/23 [History Last Taken Unknown] latanoprost 0.005 % eye drops 1 drp ophthalmic (eye) DAILY GLAUCOMA 07/02/23 [History Last Taken Unknown] metformin 500 mg tablet 500 mg PO BID 07/02/23 [History Last Taken Unknown] metronidazole 0.75 % topical cream 1 applic topical DAILY 07/02/23 [History Last Taken Unknown] pantoprazole 40 mg tablet,delayed release 40 mg PO DAILY 07/02/23 [History Last Taken Unknown] Allergy/AdvReac Type Severity Reaction Status Date / Time metoprolol [From Toprol XL] AdvReac Severe Other Verified 07/02/23 01:14 nitrofurantoin AdvReac Intermediate Other Verified 07/02/23 01:14 [From Macrobid] Penicillins AdvReac Intermediate Hives Verified 01/23/24 01:14 Family History Father Myocardial infarction Mother Lung cancer Brother Diabetes Surgical History History of splenectomy Social History Smoking Status: Never smoker ROS ROS ED Constitutional Constitutional ED: Denies chills or fever(s) Eyes Eyes: Reports blurry vision and change in vision ENT ENT ED: Denies sore throat Cardiovascular Cardiovascular: Denies chest pain, palpitations or racing heartbeat Respiratory/Chest Respiratory/Chest: Denies cough or dyspnea Gastrointestinal Gastrointestinal: Denies abdominal pain, diarrhea, nausea or vomiting Genitourinary Genitourinary ED: Denies dysuria Musculoskeletal Musculoskeletal: Denies myalgias Integumentary Denies rash Neurologic Neurologic: Reports paresthesias, weakness and other Details: Positive dizziness ; Denies headache(s) Hematologic/Lymphatic Hematologic/Lymphatic: Denies easy bleeding or easy bruising EXAM Physical Exam Const Vital Signs: 07/02/23 01:04 07/02/23 01:15 07/02/23 01:27 Temperature 98.7 F Temperature Source Temporal Pulse Rate 112 H 106 H Respiratory Rate 12 17 Blood Pressure 175/89 H 167/71 H Blood Pressure Mean 117 103 Pulse Ox 98 96 Oxygen Delivery Method Room Air Room Air Room Air 07/02/23 01:42 07/02/23 02:12 07/02/23 02:30 Temperature Temperature Source Pulse Rate 94 94 92 Respiratory Rate 17 17 12 Blood Pressure 155/84 H 168/67 H 164/81 H Blood Pressure Mean 107 100 108 Pulse Ox 96 97 97 Oxygen Delivery Method Room Air Room Air Room Air Positive well nourished, well developed and obese General Appearance ED: well developed; Negative for pallor Nutritional Appearance: obese HEENT Reports moist mucous membranes HEENT Narrative: Normocephalic atraumatic No signs of infection noted in the posterior pharynx Eyes PERRL and EOMs intact bilaterally General Eye ED: Negative for scleral icterus Neck supple Neck Narrative: No nuchal rigidity or meningeal signs Chest Wall palpation of chest normal Resp normal respiratory effort and clear to auscultation bilaterally Cardio regular rhythm Rate: tachycardic and other Other Details: Tachycardic rate with regular rhythm No murmurs rubs or gallops noted Radial and carotid pulses are equal and symmetric GI normal to inspection, nondistended, normoactive bowel sounds, non-tender, non- distended and no masses Auscultation: normoactive bowel sounds Palpation: soft Extremity normal to inspection Neuro oriented x3 Neuro Narrative: Patient is awake alert and oriented to person place and time. There is slight right-sided facial droop noted and decreased sensation with palpation of the right face compared to left. Secondary to the slight facial droop and paresthesias she received an NIH stroke scale score of 2. Otherwise there is no dysmetria dysarthria pronator drift or truncal ataxia. Sensorium / Orientation: alert Motor Exam: strength 5/5 throughout Psych mental status grossly normal Skin no rashes or lesions noted General Skin Exam: Negative for jaundice or pallor MDM MDM MDM Narrative Medical decision making narrative: Patient presented to the ER mildly hypertensive and tachycardic. There was slight right-sided facial droop and reported paresthesias and secondary to this a stroke alert was activated. Patient received a noncontrast head CT as well as a CTA of the head and neck secondary to her stroke scale score of 2. Differe ntial diagnosis is for ischemic versus hemorrhagic stroke versus large vessel occlusion versus TIA. Noncontrast and CTA revealed no acute finding. The patient was also evaluated by the stroke neurologist. They agree that as her stroke scale score is low at a value of 2 there is no need for TNK. They recommend that with negative imaging studies and a low stroke scale score patient be kept at this facility for continued stroke workup. The patient's labs showed a white blood cell count of 18.6 but otherwise no clinically significant findings. She reported being treated for UTI a few weeks ago but denied any dysuria at this time and she also stated she had mild congestion and cough but her chest x-ray revealed no obvious infiltrate. Therefore UA will be added to today's workup. On reevaluation her stroke scale score remains at 2 and as she does have risk factors such as age hypertension and diabetes medicine was contacted and they do agree to accept the patient at this time to complete her stroke workup. At this time as there is also no obvious source of infection despite elevated white count antibiotics will be held History & Record Review Discussion w/independent historian: Patient and Significant other Lab Data Attestation: I reviewed the patient's lab results. Labs: Laboratory Results - last 24 hr 07/02/23 07/02/23 01:07 01:10 WBC 18.6 H RBC 4.10 L Hgb 12.0 Hct 36.9 L MCV 90.0 MCH 29.3 MCHC 32.5 RDW Std Deviation 40.6 RDW Coeff of Katlyn 12.5 Plt Count 598 H MPV 9.2 Immature Gran % (Auto) 0.300 Neut % (Auto) 42.5 L Lymph % (Auto) 46.7 H [place] % (Auto) 8.4 Eos % (Auto) 1.3 Baso % (Auto) 0.8 Absolute Neuts (auto) 7.9 H Absolute Lymphs (auto) 8.70 H Nucleated RBC % 0 Differential Comment SCANNED Diff Path Review October PT 12.4 INR 0.9 APTT 23.2 L Sodium 140 Potassium 3.9 Chloride 107 Carbon Dioxide 26.0 Anion Gap 7 BUN 19 H Creatinine 1.10 H Estim Creat Clear Calc 43.83 Est GFR (MDRD) Af Amer 63 Est GFR (MDRD) Non-Af 52 L BUN/Creatinine Ratio 17.3 Glucose 107 H Calcium 9.6 Magnesium 2.2 POC Glucose 89 Radiography Diagnostic Testing: Clinical Impression(s) from Imaging Studies Brain CT 07/02/23 01:12 IMPRESSION: No acute intracranial abnormality. ASSESSMENT: ASPECTS ([place] Stroke Program Early CT Score) is 10. Electronically Signed: Johnny Christianson MD at 1:37 EST , ADDENDUM: 07/02/23 0147 IMPRESSION: No acute intracranial abnormality. ASSESSMENT: ASPECTS ([place] Stroke Program Early CT Score) is 10. N.B. : The above Results were Read Back by Johnny Christianson MD to Dain Wheeler DO, and understanding confirmed on 07/02/2023 01:40:05 (ET). Electronically Signed: Johnny Christianson MD at 1:37 EST , Head/Neck CTA 07/02/23 01:12 IMPRESSION: Negative CTA carotid and CTA brain. Electronically Signed: Johnny Christianson MD at 1:45 EST , ADDENDUM: 07/02/23 0155 IMPRESSION: Negative CTA carotid and CTA brain. N.B. : The above Results were Read Back by Johnny Christianson MD to Dian Wheeler DO, and understanding confirmed on 07/02/2023 01:48:15 (ET). Electronically Signed: Johnny Christianson MD at 1:45 EST , Chest X-Ray 07/02/23 01:22 IMPRESSION: No acute cardiopulmonary abnormality. Electronically Signed: Johnny Christianson MD at 1:54 EST , Chest x-ray as interpreted by the emergency medicine physician reveals no acute infiltrate pneumothorax or pleural effusion Management Discussion w/another healthcare provider: Hospitalist, Head Of Physics and Radiologist Critical Care Time Critical Care Time: Yes Critical care time (excluding procedures): Discussing w/Patient &/or Family/Junior Automation Engineer, Discussing w/Consultants and - (Critical care time of 33 minutes) Discharge Plan Dx/Rx/DC Orders Clinical Impression: CVA (cerebral vascular accident), Non-insulin dependent diabetes mellitus, Hypertension Disposition Disposition: Acute Care Hospital [facility]
[2023-07-02] MEDS: Aspirin 325 MG Tablet PO (02:31)
--- NOTE | 2023-07-02 02:33 | HP.PCM_ITS ---
[facility] - General General Date of Admission: 07/02/23 Date of Service: 07/02/23 Chief Complaint: Right facial numbness and blurry vision [facility] Narrative SHILPA GIBSON, is a 73 F who presents to the emergency department with chief complaint of right facial numbness and blurry vision. Patient has significant past medical history of diabetes, hypertension and history of partial pancreatectomy and splenectomy in 2019. Patient states she was watching television and having trouble with vision in her right eye and noticed her face was numb and she felt a funny feeling in her mouth. She also complained of feeling dizzy. Patient denies chest pain, shortness of breath and/or fevers or chills and no dysuria at this time. Initial CT scan of the head and neck were negative and chest x-ray was also negative. White blood cell count was markedly elevated at 18,000 with a left shift but no identified source of infection at this time. Patient is afebrile and without symptoms therefore will watchfully wait to see if infection declares itself. Since her arrival she is feeling less dizzy her mouth feels back to normal and her vision is normal at this time, however, she does have some residual numbness in her right face. She will be admitted to progressive care unit with neurochecks and order MRI head for the morning. [facility] Medical History (Updated 07/02/23 @ 02:[address] Dain Wheeler, ) 2/ spleen & pancreas removed Dermatitis Diabetes mellitus Hypertension Pigmented purpuric dermatosis Thrombocytosis Home Medications clonazepam 0.5 mg disintegrating tablet 0.5 mg PO QHS 01/22/15 [History Last Taken Unknown] trazodone 50 mg tablet 50 mg PO QHS 01/22/15 [History Last Taken Unknown] amlodipine 5 mg tablet 5 mg PO DAILY 09/20/20 [History Last Taken Unknown] fluoxetine 20 mg capsule 20 mg PO DAILY 09/20/20 [History Last Taken Unknown] losartan 100 mg tablet 100 mg PO DAILY 09/20/20 [History Last Taken Unknown] cranberry concentrate-ascorbic acid 140 mg-100 mg capsule 1 tablet PO DAILY 09/22/20 [History Last Taken Unknown] aspirin 81 mg tablet,delayed release (Adult Aspirin Regimen) 81 mg PO DAILY 07/02/23 [History Last Taken Unknown] latanoprost 0.005 % eye drops 1 drp ophthalmic (eye) DAILY GLAUCOMA 07/02/23 [History Last Taken Unknown] metformin 500 mg tablet 500 mg PO BID 07/02/23 [History Last Taken Unknown] metronidazole 0.75 % topical cream 1 applic topical DAILY 07/02/23 [History Last Taken Unknown] pantoprazole 40 mg tablet,delayed release 40 mg PO DAILY 07/02/23 [History Last Taken Unknown] Allergy/AdvReac Type Severity Reaction Status Date / Time metoprolol [From Toprol XL] AdvReac Severe Other Verified 07/02/23 01:14 nitrofurantoin AdvReac Intermediate Other Verified 07/02/23 01:14 [From Macrobid] Penicillins AdvReac Intermediate Hives Verified 07/02/23 01:14 Family History Father Myocardial infarction Mother Lung cancer Brother Diabetes Surgical History History of splenectomy Social History Smoking Status: Never smoker ROS Constitutional Constitutional: Denies chills or fever(s) Eyes Eyes: Reports blurry vision and change in vision right ENT HEENT: Denies abnormal hearing, dysphagia, headache(s), hearing loss or loss taste/smell Cardiovascular Cardiovascular: Denies chest pain Respiratory/Chest Respiratory/Chest: Denies shortness of breath at rest Gastrointestinal Gastrointestinal: Denies abdominal pain Genitourinary Genitourinary: Denies dysuria or urinary frequency Musculoskeletal Musculoskeletal: Denies back pain Integumentary Integumentary: Denies dry skin Neurologic Neurologic: Reports dizziness, numbness and tingling; Denies abnormal gait, abnormal speech, tremor(s) or weakness Psychiatric Psychiatric: Reports anxiety Endocrine Endocrinology: Denies change in body appearance Hematologic/Lymphatic Hematologic/Lymphatic: Denies anemia Vital Signs Vital Signs Vital Signs: 07/02/23 01:04 07/02/23 01:15 07/02/23 01:27 Temperature 98.7 F Temperature Source Temporal Pulse Rate 112 H 106 H Respiratory Rate 12 17 Blood Pressure 175/89 H 167/71 H Blood Pressure Mean 117 103 Pulse Ox 98 96 Oxygen Delivery Method Room Air Room Air Room Air 07/02/23 01:42 07/02/23 02:12 Temperature Temperature Source Pulse Rate 94 94 Respiratory Rate 17 17 Blood Pressure 155/84 H 168/67 H Blood Pressure Mean 107 100 Pulse Ox 96 97 Oxygen Delivery Method Room Air Room Air Weight Weight: 165 lb 5.547 oz Body Mass Index (BMI) 30.2 Physical Exam Const oriented x3 General Appearance: cooperative and well developed HEENT normocephalic and head/scalp atraumatic Eyes PERRL and EOMs intact bilaterally Neck no lymphadenopathy and supple Lymph Lymphatic: no lymphadenopathy noted Resp normal respiratory effort, normal air movement and clear to auscultation bilaterally Cardio regular rate, regular rhythm, S1 normal heart sound and S2 normal heart sound GI normal to inspection, nondistended, normoactive bowel sounds Extremity normal capillary refill Skin General Skin Exam: no breakdown Neuro CN's II-XII intact bilaterally and no focal motor deficits Speech: speech normal Motor Exam: strength 5/5 throughout Psych thought process normal, cooperative and affect normal Results Lab / Micro Data 07/02/23 01:10 07/02/23 01:10 Labs: Laboratory Results - last 24 hr 07/02/23 01:07: POC Glucose 89 07/02/23 01:10: WBC 18.6 H, RBC 4.10 L, Hgb 12.0, Hct 36.9 L, MCV 90.0, MCH 29.3, MCHC 32.5, RDW Std Deviation 40.6, RDW Coeff of Katlyn 12.5, Plt Count 598 H, MPV 9.2, Immature Gran % (Auto) 0.300, Neut % (Auto) 42.5 L, Lymph % (Auto) 46.7 H, Barron % (Auto) 8.4, Eos % (Auto) 1.3, Baso % (Auto) 0.8, Absolute Neuts (auto) 7.9 H, Absolute Lymphs (auto) 8.70 H, Nucleated RBC % 0, Differential Comment SCANNED, Diff Path Review October foll, PT 12.4, INR 0.9, APTT 23.2 L, Sodium 140, Potassium 3.9, Chloride 107, Carbon Dioxide 26.0, Anion Gap 7, BUN 19 H, Creatinine 1.10 H, Estim Creat Clear Calc 43.83, Est GFR (MDRD) Af Amer 63, Est GFR (MDRD) Non-Af 52 L, BUN/Creatinine Ratio 17.3, Glucose 107 H, Calcium 9.6, Magnesium 2.2 Imagaing Rad[address] CT 07/02/23 01:12 IMPRESSION: No acute intracranial abnormality. ASSESSMENT: ASPECTS ([place] Stroke Program Early CT Score) is 10. Electronically Signed: Johnny Christianson MD at 1:37 EST , ADDENDUM: 07/02/23 0147 IMPRESSION: No acute intracranial abnormality. ASSESSMENT: ASPECTS ([place] Stroke Program Early CT Score) is 10. N.B. : The above Results were Read Back by Johnny Christianson MD to Dain Wheeler DO, and understanding confirmed on 07/02/2023 01:40:05 (ET). Electronically Signed: Johnny Christianson MD at 1:37 EST Reading Location ID and State: [id number] / [employer] Tel , Service support , Head/Neck CTA 07/02/23 01:12 IMPRESSION: Negative CTA carotid and CTA brain. Electronically Signed: Johnny Christianson MD at 1:45 EST Reading Location ID and State: [employer] / [place] Tel , Service support , ADDENDUM: 07/02/23 0155 IMPRESSION: Negative CTA carotid and CTA brain. N.B. : The above Results were Read Back by Johnny Christianson MD to Dain Wheeler DO, and understanding confirmed on 07/02/2023 01:48:15 (ET). Electronically Signed: Johnny Christianson MD at 1:45 EST Reading Location ID and State: [employer] / [employer] Tel , Service support , Chest X-Ray 07/02/23 01:22 IMPRESSION: No acute cardiopulmonary abnormality. Electronically Signed: Johnny Christianson MD at 1:54 EST Reading Location ID and State: [employer] / [employer] Tel , Service support , Assessment & Plan Assessment/Plan (1) CVA (cerebral vascular accident): (2) Thrombocytosis: (3) Anxiety disorder: PLAN: Plan 1 CVA versus TIA?admit patient to progressive care unit, initiate neurochecks per routine protocol start aspirin 81 mg p.o. daily, order MRI of the brain noncontrast, order BMP CBC A1c FLP to be done in the morning 2. Leukocytosis and thrombocytosis?patient is status post splenectomy in 2019 with no known source of infection at this time we will watchfully wait to see if any source of infection declares itself while she is being monitored in the hospital. She will follow-up with me as an outpatient once discharged 3. Anxiety disorder controlled 4. DVT prophylaxis?low molecular weight heparin Charges/Coding Visit Charges Inpatient E&M: 05758 Init Hosp L2
--- NOTE | 2023-07-02 02:49 | MRI_ITS ---
EXAM: MR HEAD WITHOUT INTRAVENOUS CONTRAST CLINICAL INDICATION: Stroke TECHNIQUE: Multiplanar and multisequence MR images of the brain were obtained without intravenous contrast. COMPARISON: CT head without contrast and CTA head with contrast 07/02/2023. MRI brain with and without contrast 01/22/2015. FINDINGS: BRAIN AND EXTRA-AXIAL SPACES: Mild increase in size of T2 FLAIR hyperintensity in the forceps major both cerebral hemispheres due to chronic ischemic changes. No intra- or extra-axial hemorrhage. No intracranial mass or mass effect. Posterior fossa structures are unremarkable. Basal cisterns are patent. No diffusion restriction to suspect acute or subacute ischemic infarct. SELLA: Unremarkable. Normal sella turcica, pituitary gland, infundibular stalk, optic chiasm and hypothalamus. AUDITORY SYSTEM: Unremarkable. The internal auditory canals are patent. BONES/JOINTS: Unremarkable. No discrete lytic or blastic abnormalities. SINUSES: Unremarkable as visualized. Clear. MASTOID AIR CELLS: Unremarkable as visualized. Clear. ORBITS: Unremarkable as visualized. Both globes, extraocular muscles, optic nerves and retrobulbar fat appear unremarkable. VASCULATURE: Unremarkable as visualized. Normal flow voids in the major intracranial circulation. MRI/Brain without Contrast IMPRESSION: 1. No MRI evidence of acute or subacute ischemic infarct or acute intracranial abnormality. 2. Mild increase in size of chronic white matter ischemic changes in the forceps major of both cerebral hemispheres when compared to 01/22/2015. Electronically Signed: Miquel Patton MD at 10:08 EST ,
--- OUTSIDE RECORDS SUMMARY | 2023-07-02 03:06 | XMS RPT_ITS | CCD ---
Author Name Unknown Address [address] [facility] [address] [place] [address] Organization [facility] Care Team Providers Care Handbag Frames Inspector Name Role Phone Jeremiah Zamudio MD Primary [...] SUCCINATE] Drug Allergy 2 Other: See Comments [facility] Work Phone: (11 sources) NITROFURANTOIN, MACROCRYSTALS / Nitrofurantoin, Monohydrate; Translations: [NITROFURANTOIN MONOHYD/M-CRYST] Drug Allergy 1 Unknown [facility] Work Phone: (4 sources) Penicillins; Translations: [PENICILLINS] Propensity to adverse reactions 9 [facility] Work Phone: (7 sources) Penicillins Propensity to adverse reactions 9 [facility] Work Phone: Medications Current Medications Medication Drug [...] 97.9 [degF] SUDHIR Padilla MD Work Phone: [facility] 11-06-2022 15:25-0400 Body weight 71.71 kg SUDHIR Padilla MD Work Phone: [facility] 11-06-2022 15:25-0400 Diastolic blood pressure 88 mm[Hg] SUDHIR Padilla MD Work Phone: [facility] 11-06-2022 15:25-0400 Heart rate 107 /min SUDHIR Padilla MD Work Phone: [facility] 11-06-2022 15:25-0400 Respiratory rate 18 /min SUDHIR Padilla MD Work Phone: [facility] 11-06-2022 15:25-0400 SaO2% (BldA) [Mass fraction] 96 % SUDHIR Padilla MD Work Phone: [facility] 11-06-2022 15:25-0400 Systolic blood pressure 137 mm[Hg] SUDHIR Padilla MD Work Phone: [facility] 11-07-2021 12:53-0400 Body temperature 97.3 [degF] SUDHIR Padilla MD Work Phone: [facility] 11-07-2021 12:53-0400 Body weight 72.71 kg SUDHIR Padilla MD Work Phone: [facility] 11-07-2021 12:53-0400 Diastolic blood pressure 78 mm[Hg] SUDHIR Padilla MD Work Phone: [facility] 11-07-2021 12:53-0400 Heart rate 114 /min SUDHIR Padilla MD Work Phone: [facility] 11-07-2021 12:53-0400 Respiratory rate 20 /min SUDHIR Padilla MD Work Phone: [facility] 11-07-2021 12:53-0400 SaO2% (BldA) [Mass fraction] 97 % SUDHIR Padilla MD Work Phone: [facility] 11-07-2021 12:53-0400 Systolic blood pressure 141 mm[Hg] SUDHIR Padilla MD Work Phone: [facility] Encounters Encounter Date Encounter Type Care Provider Facility Start: 04-17-2023 End: 04-17-2023 ambulatory JEREMIAH Noble ZAMUDIO Facility:[facility] Start: 11-06-2022 End: 11-07-2022 ambulatory Noble PADILLA Facility:[facility] Start: 11-06-2022 End: 11-07-2022 Patient encounter procedure [...] Covid-19 Vaccine ( season) Covid-19 Vaccine () [facility] Start: 02-08-2023 Influenza vaccination C [facility] Start: 11-15-2022 DIABETES SCREEN DIABETES SCREEN [facility] Start: 11-15-2022 Diabetes Screening Diabetes Screenin g [facility] Start: 09-18-2022 End: 11-18-2022 Cancer Ag 19-9 [Units/volume] in Serum or Plasma CA 19-9 BLD Lab Routine IPMN (intraductal papillary mucinous neoplasm) Expected: 09/18/2022, Expires: 11/18/2022 [facility] Work Phone: Immunizations Immunization Date Immunization Notes Care Provider Fa cility 04-14-2020 influenza virus vacc ine, unspecified formulation Mri (I-Stat/1.5t) Work Phone: [facility] 11-10-2019 haemophilus influenz ae type b vaccine, PRP-T conjugate Italia Mohan RN Work Phone: [facility] Work Phone: 11-10-2019 meningococcal oligosaccharide (groups A, C, Y and W-135) diphtheria toxoid conjugate vaccine (MCV4O) Italia Mohan RN Work Phone: [facility] Work Phone: 11-10-2019 pneumococcal conjuga te vaccine, 13 valent Italia Mohan RN Work Phone: [facility] Work Phone: 04-15-2015 zoster vaccine, live Italia kemp RN Work Phone: [facility] 02-25-2014 influenza, seasonal, injectable tIalia Mohan RN Work Phone: [facility] 02-08-2013 influenza, seasonal, injectable Italia Mohan RN Work Phone: [facility] Payers Date Payer Category Payer Unknown [id number] 2021 Medicare MMO MEDICARE MMO MEDADVANTAGE O [id number] 2021-Present [phone] [address] [place] [address] [facility] [id number] 2021 Medicare [id number] 2018 Unknown MMO MMO [employer] [id number] 2018-Present [phone] [address] [place] [address] O [id number] Social History Date Type Detail Facility [facility]: [facility] Work Phone: Start: 08-03-2010 Tobacco use and exposure Smoke less tobacco non-user [facility] Work Phone: Start: 12-01-2019 End: 11-07-2021 Alcohol intake Current drinker of alcohol (finding) [facility] Start: 06-13-2011 History SDOH Alcohol Comment 1-2 drinks a week [facility] Start: 11-13-2019 History SDOH Financial 4 [facility] Start: 11-13-2019 History SDOH Food Worry 1 [facility] Start: 11-13-2019 History SDOH Transport Med 2 [facility] Start: 1950 Sex Assigned At Not on file C [facility] Start: 08-27-2021 End: 11-07-2021 Exposure to SARS-CoV-2 (event) Not sure [facility] Start: 11-07-2021 End: 07-06-2022 History of Social function [facility] Work Phone: Start: 11-07-2021 End: 07-06-2022 Tobacco use panel [facility] Work Phone: How hard is it for y ou to pay for the very basics like food, housing, medical care, and heating Not very hard [facility] Work Phone: (I/We) worried wheth er (my/our) food would run out before (I/we) got money to buy more. Never true [facility] Work Phone: In the past 12 month s, has lack of transportation kept you from medical appointments or from getting medications? No [facility] Work Phone: Clinical Notes 06-13-2011 to 04-17-2023 R Mian Padilla MD - 11/06/2022 3:28 PM Jeanine Montaño RT(R) - 10/09/2022 10:00 AM EDTTelephone Encounter - Italia Mohan RN - 09/18/2022 3:54 PM EDTR Mian Padilla MD - 11/07/2021 1:51 PM EDT Note Date & Type Note Facility 04-17-2023 Note HNO ID: [id number] Author: Nadiya High APRN.DRAWING PRESS OPERATOR Service: ? Author Type: Nurse Practitioner Type: Progress Notes Filed: 04/17/2023 7:43 PM Note Text: Subjective The history is provided by the patient. No still worker helper was used. JACOB Calderon is a 73 [...] have confirmed and edited as necessary, the [facility] Review of Systems Constitutional: Negative for chills [...] detail warranting prompt ER evaluation. Nadiya High APRN.[facility] 11-06-2022 Note HNO ID: [id number] Author: Noble Padilla MD Service: ? 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 several complaints, none seemingly related to the pancreas. clinically stable. MRI and CA 19-9 stable. 15 min visit. follow up one year. 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 several complaints, none seemingly related to the pancreas. clinically stable. MRI and CA 19-9 stable. 15 min visit. follow up one year. Vimal Padilla MD documented in this encounter [facility] 10-09-2022 Note HNO ID: [id number] Author: RT Nilda(R) Service: ? Author Type: [...] DATE: October 09, 2022 TIME: 10:15 AM [facility] 10-09-2022 History of Presen t illness Narrative [...] TIME: 10:15 AM documented in this encounter [facility] 09-18-2022 Miscellaneous Notes Formattin g of this note might be different from the original. Orders are placed for bloodwork Patient wants blood work to be placed for appointment with (CA-19) documented in this encounter [facility] 09-07-2022 Miscellaneous Notes Formattin g of this note might be different from the original. Pt wanted to update office she schedule an in person visit for 11/06. documented in this encounter [facility] 09-07-2022 Miscellaneous Notes Formattin g of this note might be different from the original. Left VM to have patient schedule mri and then can work on prior auth once scheduled Pt is calling in stating that she need prior authorization sent to her insurance before she get the MRI. Pt can be reached at [phone] documented in this encounter [facility] 11-07-2021 History of Presen t illness Narrative [facility] STAFF PHYSICIAN NOTE OF PERSONAL INVOLVEMENT IN [...] to continue surveillance, future orders placed in [facility]. I discussed pancreatic cysts in detail, and the potential need to continue to follow this process with surveillance imaging to rule out any growth of change of the cyst(s)/pancreatic duct/pancreas. The majority of the visit was spent counseling, teaching and/or coordinating care for the patient. [id number] time was 30 minutes. Seen and discussed with Dr. Padilla. Paloma Rodriguez MD 1:40 PM 11/07/2021 documented in this encounter [facility] 10-16-2021 History of Presen t illness Narrative [...] TIME: 11:25 AM documented in this encounter [facility] documented as of this encounter (statuses as of 09/06/2021) [facility] History of Past illness Narrative* Problem Noted Date Resolved Date Routine gynecological examination 06/13/2011 09/18/2011 documented as of this encounter (statuses as of 10/17/2021) [address]04-2012 History of Past illness Narrative* Problem Noted Date Resolved Date Routine gynecological examination 06/13/2011 09/18/2011 documented as of this encounter (statuses as of 11/08/2021) [address]-2012 History of Past illness Narrative* Problem Noted Date Resolved Date Routine gynecological examination 06/13/2011 09/18/2011 documented as of this encounter (statuses as of 07/31/2022) [address]2012 History of Past illness Narrative* Problem Noted Date Resolved Date Routine gynecological examination 06/13/2011 09/18/2011 documented as of this encounter (statuses as of 09/07/2022) [facility] History of Past illness Narrative* Problem Noted Date Resolved Date Routine gynecological examination 06/13/2011 09/18/2011 documented as of this encounter (statuses as of 09/12/2022) [facility] History of Past illness Narrative* Problem Noted Date Resolved Date Routine gynecological examination 06/13/2011 09/18/2011 documented as of this encounter (statuses as of 09/19/2022) [address]2012 History of Past illness Narrative* Problem Noted Date Resolved Date Routine gynecological examination 06/13/2011 09/18/2011 documented as of this encounter (statuses as of 09/19/2022) [address]2012 History of Past illness Narrative* Problem Noted Date Resolved Date Routine gynecological examination 06/13/2011 09/18/2011 documented as of this encounter (statuses as of 11/13/2022) [address]2012 History of Past illness Narrative* Problem Noted Date Diagnosed Date Resolved Date Routine gynecological examination 06/13/2011 09/18/2011 documented as of this encounter (statuses as of 04/14/2023) [facility] note* Diagnosis Pancreatic cyst Cyst and pseudocyst of pancreas documented in this encounter [facility] note* Diagnosis Pancreatic cyst Cyst and pseudocyst of pancreas documented in this encounter [facility] note* Diagnosis IPMN (intraductal papillary mucinous neoplasm)- Primary Neoplasm of unspecified nature of digestive system documented in this encounter [facility] note* Diagnosis Biliary cyst- Primary Other specified disorder of gallbladder documented in this encounter [facility] note* Diagnosis IPMN (intraductal papillary mucinous neoplasm)- Primary Neoplasm of unspecified nature of digestive system documented in this encounter [facility] note* Diagnosis IPMN (intraductal papillary mucinous neoplasm)- Primary Neoplasm of unspecified nature of digestive system Ulcerative proctitis with other complication (HCC) documented in this encounter [facility] note* Diagnosis Biliary cyst Other specified disorder of gallbladder documented in this encounter [facility] Reason for Referral Specialty Diagnoses / Procedures Referred By Contac t Referred To Contact MR IMAGING Diagnoses Pancreatic cyst Procedures MRI PANC/ESPERANZA WO/W IVCON MRI ABDOMEN W/O & W/CONTRAST MATERIAL Noble Padilla MD [address] [place] [address] Mr Imaging Referral ID Status Reason Start Date Expiration Date Visits Requested Visits Authorized [id number] Pending Review Auto-Generat ed Referral 09/06/2021 10/06/2022 1 1 Referral ID Status Reason Start Date Expiration Date V isits Requested Visits Authorized [id number] Closed Auto-Generate d Referral 09/06/2021 11/13/2021 1 1 Specialty Diagnoses / Procedures Referred By Contac t Referred To Contact MR IMAGING Diagnoses Biliary cyst Procedures MRI PANC/ESPERANZA WO/W IVCON MRI ABDOMEN W/O & W/CONTRAST MATERIAL Noble Padilla MD [address] [place], [place] [id number] Mr Imaging Referral ID Status Reason Start Date Expiration Date Visits Requested Visits Authorized [id number] Pending Review Auto-Generat ed Referral 07/30/2022 08/29/2023 1 1 Specialty Diagnoses / Procedures Referred By Zully t Referred To Contact MR IMAGING Diagnoses Biliary cyst Procedures MRI PANC/ESPERANZA WO/W IVCON MRI ABDOMEN W/O & [place] [address] [place] [address] [place] [id number] Referral ID Status Reason Start Date Expiration Date V isits Requested Visits Authorized [id number] Closed Auto-Generate d Referral 07/30/2022 08/29/2023 1 1 Advance Directives No Advanced Directives Records FoundDocuments on File Type Date Recorded Patient Funeral Home Associate Expl anation Advance Directive(s) 11/10/2019 2:45 PM Advance Directive(s) 11/10/2019 2:56 PM Advance Directive(s) 10/26/2019 10:54 AM Documents on File Type Date Recorded Patient [employer]eral Home Associate Expl anation Advance Directive(s) 11/10/2019 2:45 PM Advance Directive(s) 11/10/2019 2:56 PM Advance Directive(s) 10/26/2019 10:54 AM Documents on File Type Date Recorded Patient Funeral Home Associate Expl anation Advance Directive(s) 11/10/2019 2:45 PM Documents on File Type Date Recorded Patient Funeral Home Associate Expl anation Advance Directive(s) 11/10/2019 2:45 PM [...] or prosecute any alcohol or drug abuse patient.[facility] the event this information is protected by the Federal Confidentiality of Alcohol and Drug Abuse Patient Records regulations: The Federal rules restrict any use of the information to criminally investigate or prosecute any alcohol or drug abuse patient.[facility] the event this information is protected by the Federal Confidentiality of Alcohol and Drug Abuse Patient Records regulations: The Federal rules restrict any use of the information to criminally investigate or prosecute any alcohol or drug abuse patient.[facility] the event this information is protected by the Federal Confidentiality of Alcohol and Drug Abuse Patient Records regulations: The Federal rules restrict any use of the information to criminally investigate or prosecute any alcohol or drug abuse patient.[facility] the event this information is protected by the Federal Confidentiality of Alcohol and Drug Abuse Patient Records regulations: The Federal rules restrict any use of the information to criminally investigate or prosecute any alcohol or drug abuse patient.[facility] the event this information is protected by the Federal Confidentiality of Alcohol and Drug Abuse Patient Records regulations: The Federal rules restrict any use of the information to criminally investigate or prosecute any alcohol or drug abuse patient.[facility] the event this information is protected by the Federal Confidentiality of Alcohol and Drug Abuse Patient Records regulations: The Federal rules restrict any use of the information to criminally investigate or prosecute any alcohol or drug abuse patient.[facility] the event this information is protected by the Federal Confidentiality of Alcohol and Drug Abuse Patient Records regulations: The Federal rules restrict any use of the information to criminally investigate or prosecute any alcohol or drug abuse patient.[facility] the event this information is protected by the Federal Confidentiality of Alcohol and Drug Abuse Patient Records regulations: The Federal rules restrict any use of the information to criminally investigate or prosecute any alcohol or drug abuse patient.[facility] the event this information is protected by the Federal Confidentiality of Alcohol and Drug Abuse Patient Records regulations: The Federal rules restrict any use of the information to criminally investigate or prosecute any alcohol or drug abuse patient.[facility] Care Teams (unrecognized sec tion and content) Handbag Frames Inspector Relationship Specialty Start Date End Date Jeremiah Zamudio MD PCP - General Family Practice 09/18/11 Handbag Frames Inspector Relationship Specialty Start Date End Date Jeremiah Zamudio MD PCP - General Family Practice 09/18/11 Handbag Frames Inspector Relationship Specialty Start Date End Date Jeremiah Zamudio MD PCP - General Family Medicine 09/18/11 Handbag Frames Inspector Relationship Specialty Start Date End Date Jeremiah Zamudio MD PCP - General Family Medicine 09/18/11 Handbag Frames Inspector Relationship Specialty Start Date End Date Jeremiah Zamudio MD PCP - General Family Medicine 09/18/11 Handbag Frames Inspector Relationship Specialty Start Date End Date Jeremiah Zamudio MD PCP - General Family Medicine 09/18/11 Handbag Frames Inspector Relationship Specialty Start Date End Date Jeremiah Zamudio MD PCP - General Family Medicine 09/18/11 Reason for Visit (unrecogniz ed section and content) Referral ID Status Reason Start Date Expiration Date V isits Requested Visits Authorized [id number] Closed Auto-Generate d Referral 09/06/2021 11/13/2021 1 1 Reason Comments Established Patient Reason Comments Appointment Orders Reason Comments Appointment Reason Comments Patient Update Specialty Diagnoses / Procedures Referred By Contac t Referred To Contact MR IMAGING Diagnoses Biliary cyst Procedures MRI PANC/ESPERANZA WO/W IVCON MRI ABDOMEN W/O & [place] [address] [place] [address] [place] [id number] Referral ID Status Reason Start Date Expiration Date V isits Requested Visits Authorized [id number] Closed Auto-Generate d Referral 07/30/2022 08/29/2023 1 [...] BE BASED ON THE PRIMARY CLINICAL RECORDS. [employer] [facility]. provides no warranty or guarantee of the accuracy or completeness of information in this document.
[2023-07-02 03:39] LABS: Bacteria 0 SEEN /hpf (None Seen); Color, Urine Yellow (Yellow); Glucose, Dipstick Normal (Normal); Ketone-Dipstick 5 mg/dl (Negative); Leukocyte Esterase-Dipstick Negative /ul (Negative); Mucous, Urine 0 SEEN /hpf (<or=2+); Nitrite-Dipstick Negative (Negative); Occult Blood-Urine Negative /ul (Negative); Protein-Dipstick Negative (Negative); Red Blood Cells-Urine 0 SEEN /hpf (0-5); Specific Gravity, Urine 1.005 (1.002-1.030); Squamous Epithelial Cells - UA 0 SEEN /hpf (5-10); Urine Bilirubin Dipstick Negative (Negative); Urine Clarity Clear (Clear); Urine Urobilinogen Normal (Normal); White Blood Cells 0 SEEN /hpf (0-5)
[2023-07-02 07:50] LABS: Hemoglobin A1c 6.8 % (3.8-5.6)
[2023-07-02 08:03] LABS: Absolute Lymphocyte Count 4.46 X10^3/uL (0.83-4.51); Absolute Neutrophil Count 7.9 X10^3/uL (2.0-7.7); Basophil# 0.09 X10^3/uL; Basophil% 0.7 % (0-1); Eosinophil# 0.15 X10^3/uL; Eosinophils% 1.1 % (0-5); Hematocrit 32.5 % (37-47); Hemoglobin 10.5 g/dL (12.0-15.0); Lymphocyte # 4.46 X10^3/ul (0.83-4.51); Lymphocyte % 32.6 % (19-41); Mean Corp Hgb Conc 32.3 g/dL (32-36); Mean Corpuscular Hgb 29.1 pg (27.0-32.0); Mean Platelet Vol. 9.3 fl (6.2-12.0); Monocyte# 1.05 X10^3/uL; Monocyte% 7.7 % (0-10); NRBC Flagged by Analyzer 0 % (0-5); Neutrophil # 7.89 X10^3/uL (2.7-7.7); Neutrophil % 57.5 % (47-70); Platelet Count 536 K/mm3 (150-450); RBC Distribution Width CV 12.6 % (11.6-14.6); RBC Distribution Width SD 41.1 fl (35.1-43.9); Red Blood Count 3.61 M/mm3 (4.2-5.4); White Blood Count 13.7 K/mm3 (4.4-11.0)
[2023-07-02] MEDS: Enoxaparin 40 MG/0.4 ML Syringe SC (08:25)
[2023-07-02] MEDS: Latanoprost 0.005% 1 Bottle 1 DRP OPHTHALMIC (08:26)
[2023-07-02] MEDS: FLUoxetine 20 MG Capsule PO (08:26)
[2023-07-02] MEDS: Aspirin E.C. 81 MG Tablet PO (08:26)
[2023-07-02] MEDS: Pantoprazole Sodium 40 MG Tablet PO (08:26)
[2023-07-02 08:28] LABS: Anion Gap 6 (5-15); BUN 19 mg/dL (7-18); BUN/Creat Ratio 21.8 RATIO (10-20); Calcium,Total 9.3 mg/dL (8.5-10.1); Chloride 108 mmol/L (98-107); Cholesterol 168 mg/dL (200); Creatinine, Serum 0.87 mg/dL (0.55-1.02); EST Glomerular Filtration Rate 68 mL/min (>60); Est Glom Filt Rate - Afr Amer 82 mL/min (>60); Estimated Creatinine Clearance 54.46 ml/min; Glucose 114 mg/dL (74-106); High Density Lipoprotein 55 mg/dL; Potassium 3.9 mmol/L (3.5-5.1); Sodium Level 140 mmol/L (136-145); Triglycerides 99 mg/dL; Very Low Density Lipoprotein 20 mg/dL (5-40)
--- NOTE | 2023-07-02 11:45 | CASEMGMT ---
RN ELLI Face to Face with patient for initial transition planning/care coordination assessment. RN CM introduced self and role at [facility]. Patient sitting in chair, alert and oriented. Patient willing to participate in assessment and is able to answer all questions appropriately. Care providers, pharmacy, and demographics verified. Patient wishes to discharge home, denies need for home health at this time. Patient states he has no further needs or concerns at this time. CM to follow for discharge planning needs that may arise. PCP: [facility] Specialists: JUAN JOSÉ Jordan Surgeon Preferred Pharmacy: [facility] Insurance: [employer] [facility] Prescription Benefit: yes Living Will/HPOA: none LNOK: Living Arrangements: Patient lives with in a single story home with 2 steps to enter. Patient is independent at home. Transportation: self, DME/HHC: Patient denies DME in the home. Patient denies previous HHC or SNF. Disposition Plan: Patient to discharge home with family support and follow-up plans in place. Marie NGUYEN, RN, CM
[2023-07-02 12:36] LABS: Bedside Glucose 156 mg/dL (74-106)
--- NOTE | 2023-07-02 15:18 | DS.PCM_ITS ---
Providers Date of Admission: 07/02/23 Primary Care Physician: Dr. Jeremiah Post MD Reason For Visit: CVA VERSUS TIA Diagnosis Discharge Diagnosis (1) CVA (cerebral vascular accident): Status: Acute Code(s): I63.9 - Cerebral infarction, unspecified (2) Thrombocytosis: Status: Chronic Code(s): D47.3 - Essential (hemorrhagic) thrombocythemia (3) Anxiety disorder: Status: Chronic Code(s): F41.9 - Anxiety disorder, unspecified Medications at Discharge Home Medications clonazepam 0.5 mg disintegrating tablet 0.5 mg PO QHS 01/22/15 trazodone 50 mg tablet 50 mg PO QHS 01/22/15 amlodipine 5 mg tablet 5 mg PO DAILY 09/20/20 fluoxetine 20 mg capsule 20 mg PO DAILY 09/20/20 losartan 100 mg tablet 100 mg PO DAILY 09/20/20 cranberry concentrate-ascorbic acid 140 mg-100 mg capsule 1 tablet PO DAILY 09/22/20 aspirin 81 mg tablet,delayed release (Adult Aspirin Regimen) 81 mg PO DAILY 07/02/23 latanoprost 0.005 % eye drops 1 drp ophthalmic (eye) DAILY GLAUCOMA 07/02/23 metformin 500 mg tablet 500 mg PO BID 07/02/23 metronidazole 0.75 % topical cream 1 applic topical DAILY 07/02/23 pantoprazole 40 mg tablet,delayed release 40 mg PO DAILY 07/02/23 Weight / BMI Weight Weight: 159 lb 9.835 oz Body Mass Index (BMI) 29.2 ABG / Lab / Microbiology Data 07/02/23 07:30 07/02/23 07:30 Laboratory: Laboratory Results - last 24 hr 07/02/23 01:07: POC Glucose 89 07/02/23 01:10: WBC 18.6 H, RBC 4.10 L, Hgb 12.0, Hct 36.9 L, MCV 90.0, MCH 29.3, MCHC 32.5, RDW Std Deviation 40.6, RDW Coeff of [place] 12.5, Plt Count 598 H, MPV 9.2, Immature Gran % (Auto) 0.300, Neut % (Auto) 42.5 L, Lymph % (Auto) 46.7 H, [place] % (Auto) 8.4, Eos % (Auto) 1.3, Baso % (Auto) 0.8, Absolute Neuts (auto) 7.9 H, Absolute Lymphs (auto) 8.70 H, Nucleated RBC % 0, Differential Comment SCANNED, Diff Path Review October, PT 12.4, INR 0.9, APTT 23.2 L, Sodium 140, Potassium 3.9, Chloride 107, Carbon Dioxide 26.0, Anion Gap 7, BUN 19 H, Creatinine 1.10 H, Estim Creat Clear Calc 43.83, Est GFR (MDRD) Af Amer 63, Est GFR (MDRD) Non-Af 52 L, BUN/Creatinine Ratio 17.3, Glucose 107 H, Hemoglobin A1c 6.8 H, Calcium 9.6, Magnesium 2.2 07/02/23 03:30: Urine Color Yellow, Urine Clarity Clear, Urine pH 7.0, Ur Specific [place] 1.005, Urine Protein Negative, Urine Glucose (UA) Normal, Urine Ketones 5 H, Urine Occult Blood Negative, Urine Nitrite Negative, Urine Bilirubin Negative, Urine Urobilinogen Normal, Ur Leukocyte Esterase Negative, Urine RBC 0 SEEN, Urine WBC 0 SEEN, Ur Squamous Epith Cells 0 SEEN, Urine Bacteria 0 SEEN, Urine Mucus 0 SEEN 07/02/23 07:30: WBC 13.7 H, RBC 3.61 L, Hgb 10.5 L, Hct 32.5 L, MCV 90.0, MCH 29.1, MCHC 32.3, RDW Std Deviation 41.1, RDW Coeff of [place] 12.6, Plt Count 536 H, MPV 9.3, Immature Gran % (Auto) 0.400, Neut % (Auto) 57.5, Lymph % (Auto) 32.6, [place] % (Auto) 7.7, Eos % (Auto) 1.1, Baso % (Auto) 0.7, Absolute Neuts (auto) 7.9 H, Absolute Lymphs (auto) 4.46, Nucleated RBC % 0, Sodium 140, Potassium 3.9, Chloride 108 H, Carbon Dioxide 26.0, Anion Gap 6, BUN 19 H, Creatinine 0.87, Estim Creat Clear Calc 54.46, Est GFR (MDRD) Af Amer 82, Est GFR (MDRD) Non-Af 68, BUN/Creatinine Ratio 21.8 H, Glucose 114 H, Calcium 9.3, Tr iglycerides 99, Cholesterol 168, LDL Cholesterol 93, VLDL Cholesterol 20, HDL Cholesterol 55 07/02/23 12:13: POC Glucose 156 H Radiography Diagnostic Testing: Radiology Impression Brain CT 07/02/23 01:12 IMPRESSION: No acute intracranial abnormality. ASSESSMENT: ASPECTS ([place] Stroke Program Early CT Score) is 10. Electronically Signed: Johnny Christianson MD at 1:37 EST , ADDENDUM: 07/02/23 0147 IMPRESSION: No acute intracranial abnormality. ASSESSMENT: ASPECTS ([place] Stroke Program Early CT Score) is 10. N.B. : The above Results were Read Back by Johnny Christianson MD to Dain Wheeler DO, and understanding confirmed on 07/02/2023 01:40:05 (ET). Electronically Signed: Johnny Christianson MD at 1:37 EST , Head/Neck CTA 07/02/23 01:12 IMPRESSION: Negative CTA carotid and CTA brain. Electronically Signed: Johnny Christianson MD at 1:45 EST , ADDENDUM: 07/02/23 0155 IMPRESSION: Negative CTA carotid and CTA brain. N.B. : The above Results were Read Back by Johnny Christianson MD to Dain Wheeler DO, and understanding confirmed on 07/02/2023 01:48:15 (ET). Electronically Signed: Johnny Christianson MD at 1:45 EST , Chest X-Ray 07/02/23 01:22 IMPRESSION: No acute cardiopulmonary abnormality. Electronically Signed: Johnny Christianson MD at 1:54 EST , Brain MRI 07/02/23 02:49 IMPRESSION: 1. No MRI evidence of acute or subacute ischemic infarct or acute intracranial abnormality. 2. Mild increase in size of chronic white matter ischemic changes in the forceps major of both cerebral hemispheres when compared to 01/22/2015. Electronically Signed: Miquel Patton MD at 10:08 EST , D/C Instructions Discharge Diet: Low fat / Low cholesterol Weight Bearing Status: Weight bearing as tolerated Call your doctor if you observe: Fever of 101 or Higher, Shortness of breath, Dizziness, Swelling in the ankles and Chest pain Discharge Plan Admission Admit Date/Time: 07/02/23 02:43 Primary Reason for Your Visit: dizziness, right facial numbness Attending Provider: Yris Sanchez Primary Care Provider: Jeremiah Post Consulting Providers: Jeremiah Post Instructions Patient Instructions: TIA Dc Additional Instructions / Restrictions: to see PCP onoutpatient basis for 2D echo to be ordered Discharge Orders/Prescriptions Prescriptions: Continued trazodone 50 MG tablet 50 mg PO QHS Patient Comments: SLEEP clonazepam 0.5 MG tablet,disintegrating 0.5 mg PO QHS Patient Comments: SLEEP amlodipine 5 MG tablet 5 mg PO DAILY losartan 100 MG tablet 100 mg PO DAILY fluoxetine 20 MG capsule 20 mg PO DAILY cranberry conc-ascorbic acid 1 EACH capsule 1 tablet PO DAILY aspirin [Adult Aspirin Regimen] 81 mg tablet,delayed release (DR/EC) 81 mg PO DAILY metformin 500 mg tablet 500 mg PO BID Patient Comments: TAKE 1 TABLET BY MOUTH TWICE A DAY pantoprazole 40 mg tablet,delayed release (DR/EC) 40 mg PO DAILY Patient Comments: TAKE 1 TABLET BY MOUTH EVERY DAY metronidazole 0.75 % cream 1 applic TOPICAL DAILY Patient Comments: APPLY TO AFFECTED AREA EVERY DAY latanoprost 0.005 % drops 1 drp ophthalmic (eye) DAILY Patient Comments: INSTILL 1 DROP INTO BOTH EYES EVERY DAY Referrals / Follow Up: Jeremiah Post MD [Primary Care Provider] - Within 1 Week Disposition Disposition (needs filled in before D/C Order can be placed): Home, Self Care
--- NOTE | 2023-07-02 15:20 | DS.PCM_ITS ---
Providers Date of Admission: 07/02/23 Date of Discharge: 07/02/23 Primary Care Physician: Dr. Jeremiah Post MD Reason For Visit: CVA VERSUS TIA Diagnosis Discharge Diagnosis (1) CVA (cerebral vascular accident): Status: Acute Code(s): I63.9 - Cerebral infarction, unspecified (2) Thrombocytosis: Status: Chronic Code(s): D47.3 - Essential (hemorrhagic) thrombocythemia (3) Anxiety disorder: Status: Chronic Code(s): F41.9 - Anxiety disorder, unspecified Medications at Discharge Home Medications clonazepam 0.5 mg disintegrating tablet 0.5 mg PO QHS 01/22/15 trazodone 50 mg tablet 50 mg PO QHS 01/22/15 amlodipine 5 mg tablet 5 mg PO DAILY 09/20/20 fluoxetine 20 mg capsule 20 mg PO DAILY 09/20/20 losartan 100 mg tablet 100 mg PO DAILY 09/20/20 cranberry concentrate-ascorbic acid 140 mg-100 mg capsule 1 tablet PO DAILY 09/22/20 aspirin 81 mg tablet,delayed release (Adult Aspirin Regimen) 81 mg PO DAILY 07/02/23 latanoprost 0.005 % eye drops 1 drp ophthalmic (eye) DAILY GLAUCOMA 07/02/23 metformin 500 mg tablet 500 mg PO BID 07/02/23 metronidazole 0.75 % topical cream 1 applic topical DAILY 07/02/23 pantoprazole 40 mg tablet,delayed release 40 mg PO DAILY 07/02/23 Hospital Course Operations None Procedures None Summary of Care Provided Minutes Spent on Discharge: 45 Hospital Course: Patient is a 73-year-old female with a past medical history as outlined was admitted through the ED on 07/02/2023 with a complaint of right-sided facial numbness and blurred vision. She had been watching TV and started having trouble with her vision in her right eye. She also noted her face was numb and had a funny feeling in her mouth. She also had associated dizziness so she came into the ED. CT of the brain was negative and CT of the head and neck showed no evidence of any blockage. Chest x-ray showed no acute cardiopulmonary process. Her white cell count was elevated at 18,000. 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 She was admitted to be managed for possible TIA to rule out a stroke. Teleneurology was consulted and reviewed patient and did not think she was a tenecteplase candidate. It was recommended that patient be admitted for stroke workup. He had MRI of the brain which was also negative for stroke. Patient symptoms resolved and she felt well during the admission. Patient wanted to be discharged home and was agreeable with having the 2D echo ordered on outpatient basis by his PCP. He remained stable and was discharged home on 07/02/2023. Of note her lipid panel showed normal lipid level. She was on aspirin 81 mg daily and this was continued. She is follow-up with her primary care doctor within 1 to 2 weeks and for her PCP to order 2D echo on outpatient basis. Patient seen and examined prior to discharge. She had no active complaints and had an uneventful night. Review of systems otherwise negative. Labs and vitals reviewed. Home medication reviewed and reconciled. Physical Exam Const alert, oriented x3 and no apparent distress General Appearance: cooperative, comfortable and well kempt Orientation / Consciousness: awake Exam Limitations: no limitations HEENT normocephalic, head/scalp atraumatic, hearing grossly normal bilaterally and moist oral mucous membranes Mouth: oral and palatal mucosa normal Eyes PERRL, EOMs intact bilaterally and conjunctivae normal Neck no lymphadenopathy and supple Resp normal respiratory effort, no retractions, no use of accessory muscles and clear to auscultation bilaterally Cardio regular rate, regular rhythm, S1 normal heart sound, S2 normal heart sound and no murmurs Extremity normal to inspection, full ROM and no clubbing, cyanosis or edema Skin no rashes or lesions noted, no wounds and skin turgor normal Neuro oriented x3, CN's II-XII intact bilaterally, moves all extremities, no focal motor deficits and no sensory deficits noted Sensorium / Orientation: awake and alert Motor Exam: strength 5/5 throughout Psych affect normal Weight / BMI Weight Weight: 159 lb 9.835 oz Body Mass Index (BMI) 29.2 ABG / Lab / Microbiology Data 07/02/23 07:30 07/02/23 07:30 Laboratory: Laboratory Results - last 24 hr 07/02/23 01:07: POC Glucose 89 07/02/23 01:10: WBC 18.6 H, RBC 4.10 L, Hgb 12.0, Hct 36.9 L, MCV 90.0, MCH 29.3, MCHC 32.5, RDW Std Deviation 40.6, RDW Coeff of [place] 12.5, Plt Count 598 H, MPV 9.2, Immature Gran % (Auto) 0.300, Neut % (Auto) 42.5 L, Lymph % (Auto) 46.7 H, [place] % (Auto) 8.4, Eos % (Auto) 1.3, Baso % (Auto) 0.8, Absolute Neuts (auto) 7.9 H, Absolute Lymphs (auto) 8.70 H, Nucleated RBC % 0, Differential Comment SCANNED, Diff Path Review October, PT 12.4, INR 0.9, APTT 23.2 L, Sodium 140, Potassium 3.9, Chloride 107, Carbon Dioxide 26.0, Anion Gap 7, BUN 19 H, Creatinine 1.10 H, Estim Creat Clear Calc 43.83, Est GFR (MDRD) Af Amer 63, Est GFR (MDRD) Non-Af 52 L, BUN/Creatinine Ratio 17.3, Glucose 107 H, Hemoglobin A1c 6.8 H, Calcium 9.6, Magnesium 2.2 07/02/23 03:30: Urine Color Yellow, Urine Clarity Clear, Urine pH 7.0, Ur Specific [place] 1.005, Urine Protein Negative, Urine Glucose (UA) Normal, Urine Ketones 5 H, Urine Occult Blood Negative, Urine Nitrite Negative, Urine Bilirubin Negative, Urine Urobilinogen Normal, Ur Leukocyte Esterase Negative, Urine RBC 0 SEEN, Urine WBC 0 SEEN, Ur Squamous Epith Cells 0 SEEN, Urine Bacteria 0 SEEN, Urine Mucus 0 SEEN 07/02/23 07:30: WBC 13.7 H, RBC 3.61 L, Hgb 10.5 L, Hct 32.5 L, MCV 90.0, MCH 29.1, MCHC 32.3, RDW Std Deviation 41.1, RDW Coeff of [place] 12.6, Plt Count 536 H, MPV 9.3, Immature Gran % (Auto) 0.400, Neut % (Auto) 57.5, Lymph % (Auto) 32.6, [place] % (Auto) 7.7, Eos % (Auto) 1.1, Baso % (Auto) 0.7, Absolute Neuts (auto) 7.9 H, Absolute Lymphs (auto) 4.46, Nucleated RBC % 0, Sodium 140, Potassium 3.9, Chloride 108 H, Carbon Dioxide 26.0, Anion Gap 6, BUN 19 H, Creatinine 0.87, Estim Creat Clear Calc 54.46, Est GFR (MDRD) Af Amer 82, Est GFR (MDRD) Non-Af 68, BUN/Creatinine Ratio 21.8 H, Glucose 114 H, Calcium 9.3, Triglycerides 99, Cholesterol 168, LDL Cholesterol 93, VLDL Cholesterol 20, HDL Cholesterol 55 07/02/23 12:13: POC Glucose 156 H Radiography Diagnostic Testing: Radiology Impression Brain CT 07/02/23 01:12 IMPRESSION: No acute intracranial abnormality. ASSESSMENT: ASPECTS ([place] Stroke Program Early CT Score) is 10. Electronically Signed: Johnny Christianson MD at 1:37 EST Reading Location ID and State: [id number] / [place] Tel , Service support , ADDENDUM: 07/02/23 0147 IMPRESSION: No acute intracranial abnormality. ASSESSMENT: ASPECTS ([place] Stroke Program Early CT Score) is 10. N.B. : The above Results were Read Back by Johnny Christianson MD to Dain Wheeler DO, and understanding confirmed on 07/02/2023 01:40:05 (ET). Electronically Signed: Johnny Christianson MD at 1:37 EST , Head/Neck CTA 07/02/23 01:12 IMPRESSION: Negative CTA carotid and CTA brain. Electronically Signed: Johnny Christianson MD at 1:45 EST , ADDENDUM: 07/02/23 0155 IMPRESSION: Negative CTA carotid and CTA brain. N.B. : The above Results were Read Back by Johnny Christianson MD to Dain Wheeler DO, and understanding confirmed on 07/02/2023 01:48:15 (ET). Electronically Signed: Johnny Christianson MD at 1:45 EST , Chest X-Ray 07/02/23 01:22 IMPRESSION: No acute cardiopulmonary abnormality. Electronically Signed: Johnny Christianson MD at 1:54 EST , Brain MRI 07/02/23 02:49 IMPRESSION: 1. No MRI evidence of acute or subacute ischemic infarct or acute intracranial abnormality. 2. Mild increase in size of chronic white matter ischemic changes in the forceps major of both cerebral hemispheres when compared to 01/22/2015. Electronically Signed: Miquel Patton MD at 10:08 EST , D/C Instructions Discharge Diet: Low fat / Low cholesterol Discharge Activity: Return to Normal Activity Weight Bearing Status: Weight bearing as tolerated Call your doctor if you observe: Fever of 101 or Higher, Shortness of breath, Dizziness, Swelling in the ankles and Chest pain Meaningful Use Info Meaningful Use Diagnoses (Choose all that apply): None applicable Discharge Plan Admission Admit Date/Time: 07/02/23 02:43 Primary Reason for Your Visit: dizziness, right facial numbness Attending Provider: Yris Sanchez Primary Care Provider: Jeremiah Post Consulting Providers: Jeremiah Post Instructions Patient Instructions: TIA Dc Additional Instructions / Restrictions: to see PCP onoutpatient basis for 2D echo to be ordered Discharge Orders/Prescriptions Prescriptions: Continued trazodone 50 MG tablet 50 mg PO QHS Patient Comments: SLEEP clonazepam 0.5 MG tablet,disintegrating 0.5 mg PO QHS Patient Comments: SLEEP amlodipine 5 MG tablet 5 mg PO DAILY losartan 100 MG tablet 100 mg PO DAILY fluoxetine 20 MG capsule 20 mg PO DAILY cranberry conc-ascorbic acid 1 EACH capsule 1 tablet PO DAILY aspirin [Adult Aspirin Regimen] 81 mg tablet,delayed release (DR/EC) 81 mg PO DAILY metformin 500 mg tablet 500 mg PO BID Patient Comments: TAKE 1 TABLET BY MOUTH TWICE A DAY pantoprazole 40 mg tablet,delayed release (DR/EC) 40 mg PO DAILY Patient Comments: TAKE 1 TABLET BY MOUTH EVERY DAY metronidazole 0.75 % cream 1 applic TOPICAL DAILY Patient Comments: APPLY TO AFFECTED AREA EVERY DAY latanoprost 0.005 % drops 1 drp ophthalmic (eye) DAILY Patient Comments: INSTILL 1 DROP INTO BOTH EYES EVERY DAY Referrals / Follow Up: Jeremiah Post MD [Primary Care Provider] - Within 1 Week Disposition Disposition (needs filled in before D/C Order can be placed): Home, Self Care Charges/Coding Visit Charges Inpatient E&M: 28439 Disch Hosp >30min
[2023-07-02] MEDS: Losartan Potassium 100 MG Tablet PO (15:41)
[2023-07-02] MEDS: amLODIPine 5 MG Tablet PO (15:42)
[2023-07-03 14:31] LABS: Pathologist Review Reviewed
== END 2023-07-02 16:19 | disposition home or self-care (01) | DRG 69 ==
LOC: ED 02:25 → PCU 03:04
PROVIDERS: Admitting Provider Family Medicine; Emergency Provider Emergency Medicine; PCP Family Medicine; Referring Provider Family Medicine; Visit Provider Student in an Organized Health Care Education/Training Program
DX: G45.9 Transient cerebral ischemic attack, unspecified (principal); D47.3 Essential (hemorrhagic) thrombocythemia; E11.9 Type 2 diabetes mellitus without complications; I10 Essential (primary) hypertension; F41.9 Anxiety disorder, unspecified; Z79.84 Long term (current) use of oral hypoglycemic drugs; Z79.82 Long term (current) use of aspirin
CPT/HCPCS: 36415; 70450; 70496; 70498; 70551; 71045; 80048; 80061; 81001; 82962; 83036; 83735; 85025; 85610; 85730; 93005; 94762; 97161; 97165; 99285; J7030; Q9967; A4216

== ENCOUNTER → 2023-08-08 | Outpatient (CLI) | payer MEDICARE, SELFPAY ==
--- NOTE | 2023-08-08 12:55 | ECHOD_ITS ---
Reason For Study: TIA Procedure This was a 2D Doppler, Color Flow transthoracic echocardiogram. Exam performed in department. Left Ventricle Normal LV size. The estimated ejection fraction is 60 %. No evidence for diastolic dysfunction. No regional wall motion abnormalities noted. Right Ventricle Normal RV size. Normal systolic function. Atria Normal left atrium. Normal right atrium. No doppler evidence for ASD. Bubble contrast study negative for right to left interatrial shunt. Mitral Valve There is no mitral valve stenosis. No mitral valve insufficiency. Tricuspid Valve There is no tricuspid stenosis. Unable to estimate RV systolic pressure due to insufficient tricuspid regurgitant envelope. Trivial tricuspid valve insufficiency. Aortic Valve Trisinus/trileaflet aortic valve. There is no aortic stenosis. No aortic valve insufficiency. Pulmonic Valve There is no pulmonic valvular stenosis. No pulmonic valve insufficiency. Great Vessels Normal aortic root. Pericardium/Pleural No pericardial effusion. Medication 22 gauge I.V. with prn adaptor inserted into left arm. Performed a rapid injection of agitated mix of 9 cc saline and 1cc air to assess for atrial septal defect. MMode/2D Measurements & Calculations LVIDd: 3.5 cm IVSd: 0.93 cm Ao root diam: 3.1 cm LVIDs: 2.5 cm LVPWd: 0.92 cm RVDd: 2.7 cm FS: 30.9 % LAV(MOD-bp): 29.4 ml LVAd ap4: 27.0 cm2 SV(MOD-sp4): 48.7 ml LAV(MOD-bp) Indexed: 17.1 ml/m2 LVLd ap4: 7.8 cm LAV(MOD-sp2): 30.6 ml EDV(MOD-sp4): 78.2 ml LAV(MOD-sp4): 25.9 ml EDV(sp4-el): 79.8 ml LVAs ap4: 14.6 cm2 LVLs ap4: 6.2 cm ESV(MOD-sp4): 29.5 ml ESV(sp4-el): 29.3 ml EF(MOD-sp4): 62.3 % EF(sp4-el): 63.3 % SV(sp4-el): 50.5 ml LA A4 area: 13.3 cm2 LA dimension(2D): 2.5 cm RA A4 area: 10.3 cm2 TAPSE: 1.8 cm Time Measurements MV dec time: 0.15 sec Doppler Measurements & Calculations MV E max ethan: 52.6 cm/sec Lat Peak E' Ethan: 15.1 cm/sec Med Peak E' Ethan: 8.5 cm/sec MV A max ethan: 87.1 cm/sec E/E' lat: 3.5 E/E' med: 6.2 MV E/A: 0.60 Ao V2 max: 119.3 cm/sec LV V1 max: 92.0 cm/sec PA V2 max: 78.6 cm/sec Ao max P.7 mmHg LV V1 max P.4 mmHg TR max ethan: 255.8 cm/sec TR max P.2 mmHg ECHO/Echo Complete Interpretation Summary The estimated ejection fraction is 60 %. No evidence for diastolic dysfunction. Ordering Physician: Jeremiah Post Referring Physician: Jeremiah Post Performed By: Aziza Garner RDCS
== END | disposition home or self-care (01) ==
LOC: CVS 12:50
PROVIDERS: PCP Family Medicine; Referring Provider Family Medicine; Visit Provider Family Medicine
DX: G45.9 Transient cerebral ischemic attack, unspecified (principal)
CPT/HCPCS: 93306; A4216

== ENCOUNTER → 2023-10-16 | Outpatient (CLI) | payer MEDICARE, SELFPAY ==
--- NOTE | 2023-10-16 15:21 | BI_ITS ---
MAMMOGRAPHY - BILATERAL SCREENING REASON FOR EXAM: Female, 73 years old. Routine annual screening examination. PERTINENT HISTORY: Non-contributory. TECHNIQUE: Digital bilateral breast sadie (3D mammographic acquisition) in the CC and MLO projections. 2-D mediolateral oblique (MLO) and craniocaudad (CC) views of both breasts were obtained. CAD: Full Field Digital Mammography with Computer Added Detection was performed. COMPARISON: Comparison is made with prior study dated July 13, 2022 and June 29, 2021. FINDINGS: Breast Composition: The breasts are heterogeneously dense, which may obscure small masses. There are no dominant masses or suspicious calcifications. Stable small benign-appearing bilateral axillary lymph nodes. No other significant abnormalities are identified. There has been no significant change since the prior study. BI/SCRN MAMM (CAD)W/SADIE BILAT IMPRESSION: Stable bilateral screening mammogram. Yearly follow-up mammogram recommended. (A) ASSESSMENT CATEGORY: BIRADS Category 2: Benign. A letter regarding these results will be sent to the patient by the facility within 30 days. Approximately 10% of breast cancers are not detected by mammography. A normal mammogram should not delay biopsy of a clinically suspicious abnormality. [id number] Electronically Signed: Josias Garcia MD at 8:30 EDT ,
== END | disposition home or self-care (01) ==
LOC: OPBI 15:21
PROVIDERS: PCP Family Medicine; Referring Provider Family Medicine; Visit Provider Family Medicine
DX: Z12.31 Encounter for screening mammogram for malignant neoplasm of breast (principal)
CPT/HCPCS: 77063; 77067

== ENCOUNTER → 2024-05-28 | Outpatient (CLI) | payer MEDICARE, SELFPAY ==
[2024-05-28 17:38] LABS: Absolute Lymphocyte Count 3.79 X10^3/uL (0.83-4.51); Absolute Neutrophil Count 6.3 X10^3/uL (2.0-7.7); Basophil# 0.11 X10^3/uL; Eosinophils% 1.8 % (0-5); Hematocrit 35.6 % (37-47); Hemoglobin 11.1 g/dL (12.0-15.0); Lymphocyte # 3.79 X10^3/ul (0.83-4.51); Lymphocyte % 33.6 % (19-41); Mean Corp Hgb Conc 31.2 g/dL (32-36); Mean Corpuscular Hgb 28.4 pg (27.0-32.0); Mean Platelet Vol. 9.5 fl (6.2-12.0); Monocyte# 0.87 X10^3/uL; Monocyte% 7.7 % (0-10); NRBC Flagged by Analyzer 0 % (0-5); Neutrophil # 6.27 X10^3/uL (2.7-7.7); Neutrophil % 55.5 % (47-70); Platelet Count 653 K/mm3 (150-450); RBC Distribution Width CV 13.2 % (11.6-14.6); RBC Distribution Width SD 43.9 fl (35.1-43.9); Red Blood Count 3.91 M/mm3 (4.2-5.4); White Blood Count 11.3 K/mm3 (4.4-11.0)
[2024-05-28 17:57] LABS: ALB/GLOB Ratio 1.1 RATIO (0.9-2.4); AST(SGOT) 15 U/L (15-37); Alanine Aminotransfer ALT/SGPT 29 U/L (13-56); Albumin, Serum 4.1 g/dL (3.2-5.0); Alkaline Phosphatase 66 U/L (45-117); Anion Gap 5 (5-15); BUN 20 mg/dL (7-18); BUN/Creat Ratio 23.8 RATIO (10-20); Calcium,Total 9.1 mg/dL (8.5-10.1); Chloride 107 mmol/L (98-107); Creatinine, Serum 0.84 mg/dL (0.55-1.02); EST Glomerular Filtration Rate 71 mL/min (>60); Est Glom Filt Rate - Afr Amer 85 mL/min (>60); Globulin 3.7 g/dL (2.2-4.2); Glucose 116 mg/dL (74-106); Potassium 4.3 mmol/L (3.5-5.1); Protein, Total 7.8 g/dL (6.4-8.2); Sodium Level 137 mmol/L (136-145)
== END | disposition home or self-care (01) ==
LOC: MFPLAB 16:56
PROVIDERS: PCP Family Medicine; Referring Provider Family Medicine; Visit Provider Family Medicine
DX: R19.7 Diarrhea, unspecified (principal); M79.10 Myalgia, unspecified site
CPT/HCPCS: 36415; 80053; 85025

== ENCOUNTER → 2024-05-29 | Outpatient (CLI) | payer MEDICARE, SELFPAY | END | disposition home or self-care (01) | PROVIDERS: PCP Family Medicine; Referring Provider Family Medicine; Visit Provider Family Medicine | DX: R19.7 Diarrhea, unspecified (principal); M79.10 Myalgia, unspecified site | CPT/HCPCS: 87493 ==

== ENCOUNTER → 2024-11-05 | Outpatient (CLI) | payer MEDICARE, SELFPAY ==
--- NOTE | 2024-11-05 15:06 | BI_ITS ---
EXAM: SCREENING MAMM (CAD), BILAT DATE: 11/05/2024 CLINICAL HISTORY: F, Age 74 y/o , SCREENING No family history. BREAST CANCER RISK ASSESSMENT: Not assessed. TECHNIQUE: Bilateral screening digital breast tomosynthesis with 2D and 3D images. Computer aided detection. COMPARISON: Prior exam(s) dated October 16, 2023.. FINDINGS: TISSUE DENSITY: The breast tissue is heterogenously dense, which may obscure small masses. Bilateral Breast Mammographic Findings: No significant masses, calcifications or other abnormalities are identified. Stable bilateral fat containing axillary lymph nodes. No suspicious masses, areas of developing architectural distortion, or suspicious calcifications. There has been no significant interval change. BI/SCREENING MAMM (CAD), BILAT IMPRESSION: OVERALL FINAL ASSESSMENT: BIRADS 2 BENIGN FINDING RECOMMENDATION: Routine annual follow-up in 1 Year A letter with findings and recommendations will be mailed to the patient. Reading Location: [place] [id number]
== END | disposition home or self-care (01) ==
LOC: OPBI 15:03
PROVIDERS: PCP Family Medicine; Referring Provider Family Medicine; Visit Provider Family Medicine
DX: Z12.31 Encounter for screening mammogram for malignant neoplasm of breast (principal)
CPT/HCPCS: 77067

== ENCOUNTER → 2024-11-23 | Outpatient (CLI) | payer MEDICARE, SELFPAY ==
[2024-11-23 15:53] LABS: Absolute Lymphocyte Count 4.13 X10^3/uL (0.83-4.51); Absolute Neutrophil Count 9.8 X10^3/uL (2.0-7.7); Basophil# 0.11 X10^3/uL; Basophil% 0.7 % (0-1); Eosinophil# 0.31 X10^3/uL; Hematocrit 35.6 % (37-47); Hemoglobin 11.3 g/dL (12.0-15.0); Lymphocyte # 4.13 X10^3/ul (0.83-4.51); Lymphocyte % 26.1 % (19-41); Mean Corp Hgb Conc 31.7 g/dL (32-36); Mean Corpuscular Hgb 28.5 pg (27.0-32.0); Mean Corpuscular Volume 89.7 fL (81-99); Mean Platelet Vol. 9.7 fl (6.2-12.0); Monocyte# 1.39 X10^3/uL; Monocyte% 8.8 % (0-10); NRBC Flagged by Analyzer 0 % (0-5); Neutrophil # 9.84 X10^3/uL (2.7-7.7); Platelet Count 632 K/mm3 (150-450); Red Blood Count 3.97 M/mm3 (4.2-5.4); White Blood Count 15.8 K/mm3 (4.4-11.0)
[2024-11-23 19:15] LABS: Microalbumin,Random Urine < 12.0 mg/L (NO RANGE EST.); Microalbumin:Creatinine Ratio UNABLE TO CALCULATE mg/g CRE
--- OUTSIDE RECORDS SUMMARY | 2024-11-23 23:02 | XMS RPT_ITS | CCD ---
Author Organization [facility] Care Team Providers Care Bottle Gauger Name Role Phone Jeremiah Zamudio MD Primary Care Provider Sincere, Dr. Daniels Primary Care Provider [phone] Jeremiah Zamudio Attending Provider Dr. Dain Wheeler Emergency Provider [phone] Saul Mcmahon Attending Provider [phone] Jeremiah Zamudio MD Primary Care Provider Jeremiah Zamudio MD Primary Care Provider Jeremiah Zamudio MD Primary Care Provider Jeremiah Zamudio Primary Care Unavailable Sincere, Jeremiah Attending Unavailable Zamudio, Jeremiah Referring Unavailable Zamudio, Jeremiah Attending Unavailable Zamudio, Jeremiah Referring Unavailable Zamudio, Jeremiah Primary Care Unavailable Zamudio, Jeremiah Attending Unavailable Zamudio, Jeremiah Referring Unavailable Zamudio, Jeremiah Primary Care Unavailable JEREMIAH ZAMUDIO Primary Care Unavailable Noble PADILLA Referring Unavailable ZAMUDIO, JEREMIAH Dickey Primary Care Unavailable Noble PADILLA Referring Unavailable VALERIE, R TIMOTEO Attending Unavailable SINCERE, JEREMIAH Dickey Primary Care Unavailable Sincere PATTERSON, Dr. Daniels Primary Care Provider [phone] Sincere PATTERSON, Dr. Daniels Attending Provider [phone] Sincere PATTERSON, Dr. Daniels Referring Provider [phone] Allergies Allergy Classification Reported Allergen(s) Allergy Type Date of Onset Reaction(s) Facility (20 sources) Metoprolol; Translations: [METOPROLOL SUCCINATE] Drug Allergy 08-07-19 12 Other: See Comments [facility] Work Phone: (20 sources) NITROFURANTOIN, MACROCRYSTALS / Nitrofurantoin, Monohydrate; Translations: [NITROFURANTOIN MONOHYD/M-CRYST] Drug Allergy 11-16-19 11 [facility] Work Phone: (6 sources) Penicillins; Translations: [PENICILLINS] Propensity to adverse reactions 05-28-20 09 [facility] Work Phone: (8 sources) Metoprolol Drug Allergy 09-23-19 21 [facility] Comment on above: BURNING SENSATION IN ARMS AND LEGS (8 sources) Nitrofurantoin Drug Allergy 09-23-19 21 Other [facility] (6 sources) Penicillins Propensity to adverse reactions 09-23-19 [facility] (13 sources) Penicillins Propensity to adverse reactions 05-28-20 [facility] Work Phone: (3 sources) Penicillins Propensity to adverse reactions 05-28-20 [facility] Work Phone: (1 source) Metoprolol Drug Allergy 07-02-19 [facility] Repository (1 source) Nitrofurantoin Drug Allergy 07-02-19 24 [facility] Repository (1 source) Penicillins Drug allergy (disorder) 07-02-19 [facility] Repository Medications Current Medications Medication Drug Class(es) Dates Sig (Normalized) Sig (Original) acetaminophen 325 mg oral capsule (19 sources) acetaminophen 32 5 mg cap Take 1 capsule by mouth as needed. Active Comment on above: Take 1 capsule by mo [facility] as needed. amLODIPine 5 mg oral tablet (20 sources) Dihydropyridine Calcium Channel Jules Start: 09-20-2020 take 5 mg by mouth once daily Amlodipine Active 5 MG PO DAILY September 19, 2020 11:00pm Comment on above: Take 5 mg by mouth o nce daily. Cranberry Conc-Ascorbic Acid (8 sources) Non-Standardized Food Allergenic Extract, Non-Standardized Plant Allergenic Extract, Vitamin C Start: 09-22-2020 Cranberry Conc-Ascorbic Acid 1 EACH capsule Active 1 {tbl} PO DAILY September 22, 2020 12:00am Start: 09-22-2020 [facility] Cranberry Conc-Ascorbic Acid Active 1 TABLET PO DAILY September 21, 2020 11:00pm Start: 09-22-2020 take 1 tablet by betty th once daily Cranberry Conc-Ascorbic Acid Active 1 TABLET PO DAILY September 22, 2020 12:00am aspirin 81 mg delayed release oral tablet (4 sources) Platelet Aggregation Inhibitor, Nonsteroidal Anti-inflammatory Drug Start: 07-02-2023 take 1 tablet by mouth once daily Aspirin (Adult Aspirin Regimen) 81 mg tablet,delayed release (DR/EC) Active 81 mg PO DAILY July 02, 2023 1:00am clonazePAM 0.5 mg disintegrating oral tablet (20 sources) Benzodiazepine Start: 01-22-2015 take 1 tablet by mouth at bedtime Clonazepam 0.5 MG tablet,disintegrat ing Active 0.5 mg PO AT BEDTIME January 22, 2015 12:00am take 1 tablet by betty th every twenty-four hours as needed clonazePAM (KLONOPIN) 0.5 mg tablet Take 0.5 mg by mouth at bedtime as needed. Active Comment on above: Take 0.5 mg by mouth at bedtime as needed. FLUoxetine 20 mg oral capsule (20 sources) Serotonin Reuptake Inhibitor Start: 09-20-2020 take 1 capsule by mouth once daily Fluoxetine 20 MG capsule Active 20 mg PO DAILY September 20, 2020 12:00am take 2 capsules by mouth once da bobby FLUoxetine (PROZAC) 20 mg capsule Take 40 mg by mouth once daily. Active Comment on above: Take 20 mg by mouth once daily. iv contrast (will be provided with radiology test) (4 sources) Start: 07-20-2024 End: 07-21-2024 iv contrast (will be provided with radiology test) Indications: IPMN (intraductal papillary mucinous neoplasm) MRI PANC/ESPERANZA Inject, intravenously, once for 1 [...] MR contrast administration guidelines link. 1 Each 07/20/2024 07/21/2024 Active Start: 07-09-2024 End: 07-10-2024 iv contrast (will be provide d with radiology test) Indications: Biliary cyst MRI [...] MR contrast administration guidelines link. 1 Each 07/09/2024 07/10/2024 Active Start: 07-30-2022 End: 07-31-2022 iv contrast (will be provide d with radiology test) Indications: Biliary cyst MRI [...] link. 1 Each 0 07/30/2022 07/31/2022 Active Start: 09-06-2021 End: 09-07-2021 iv contrast (will be provide d with radiology test) Indications: Pancreatic cyst MRI PANC/ESPERANZA Inject, intravenously, once for [...] contrast administration guidelines link. 1 Each 0 09/06/2021 09/07/2021 Active Comment on above: MRI PANC/ESPERANZA Inject, intravenously, once for 1 [...] in the MR contrast administration guidelines link. latanoprost 0.05 mg/ml ophthalmic solution (4 sources) Prostaglandin Analog Start: 07-02-19 Latanoprost 0.005 % drops Active 1 NMA OPHTHALMIC DAILY July 02, 2023 1:00am losartan potassium 100 mg oral tablet (20 sources) Angiotensin 2 Receptor Jules Start: 09-22-19 take 1 tablet by mouth once daily Losartan 100 MG tablet Active 100 mg PO DAILY September 20, 2020 12:00am Comment on above: Take 100 mg by mouth once daily. metFORMIN hydrochloride 500 mg oral tablet (20 sources) Biguanide Start: 07-02-19 take 500 mg by mouth twice daily Metformin Active 500 MG PO TWICE A DAY July 02, 2023 12:00am Comment on above: Take 500 mg by mouth twice daily with meals. metroNIDAZOLE 7.5 mg/ml topical cream (4 sources) Nitroimidazole Antimicrobial Start: 07-02-19 Metronidazole 0.75 % cream Active 1 NMA TOPICAL DAILY July 02, 2023 1:00am pantoprazole 40 mg delayed release oral tablet (4 sources) Proton Pump Inhibitor Start: 07-02-19 take 1 tablet by mouth once daily Pantoprazole 40 mg tablet,delayed release (DR/EC) Active 40 mg PO DAILY July 02, 2023 1:00am traZODone hydrochloride 50 mg oral tablet (20 sources) Serotonin Reuptake Inhibitor Start: 01-23-20 take 1 tablet by mouth once daily at bedtime traZODone (DESYREL) 50 mg tablet TAKE 1 TABLET BY MOUTH EVERYDAY AT BEDTIME 10/30/2019 Active TRAZODONE HCL (T RAZODONE ORAL) Take by mouth. 0 Active Comment on above: Take by mouth. TAKE 1 TABLET BY BETTY EVERYDAY AT BEDTIME Completed/Discontinued Medications Medication Drug Class(es) Dates Sig (Normalized) Sig (Original) diphenhydrAMINE hydrochloride 25 mg oral capsule (8 sources) Histamine-1 Receptor Antagonist Start: 09-22-2020 End: 07-02-2023 take 1 capsule by mouth at bedtime Diphenhydramine Hcl 25 MG capsule Discontinued 25 mg PO AT BEDTIME September 22, 2020 12:00am July 02, 2023 2:31am gabapentin 300 mg oral capsule (10 sources) Anti-epileptic Agent Start: 01-27-2020 take 1 capsule by mouth every eight hours gabapentin (NEURONTIN) 300 mg capsule Take 1 capsule by mouth every 8 hours for 21 days. 63 capsule 0 01/27/2020 Active Comment on above: Take 1 capsule by mo uth every 8 hours for 21 days. loratadine 10 mg oral tablet (8 sources) Start: 09-22-2020 End: 07-02-2023 take 1 tablet by mouth once daily Loratadine 10 MG tablet Discontinued 10 mg PO DAILY September 22, 2020 12:00am July 02, 2023 2:31am mometasone furoate 0.05 mg/actuat metered dose nasal spray (8 sources) Corticosteroid Start: 09-20-2020 End: 07-02-2023 Mometasone 1 SPRAY spray,non-aerosol Discontinued 1 NMA NASAL TWICE A DAY September 20, 2020 12:00am July 02, 2023 2:32am Start: 09-20-2020 End: 07-02-2023 Mometasone Discontinued 1 SP RAY NASAL TWICE A DAY September 19, 2020 11:00pm July 02, 2023 1:32am Nystatin, Bulk, 5 billion un it powd (10 sources) Nystatin, Bulk, 5 billion unit powd Problems Active Problems Problem Classification Problem Date Documented Date Episodic/Chronic Abdominal pain (8 sources) Epigastric pain; Translations: [Epigastric pain] 01-17-2021 Episodic Acute cerebrovascular disease (7 sources) Cerebrovascular accident; Translations: [Cerebral infarction, unspecified] 07-02-2023 Chronic Adjustment disorders (19 sources) Adjustment disorder with anxious mood; Translations: [Adjustment disorder with anxiety] Onset: 06-13-2011 06-05-2021 Chronic Anxiety disorders (10 sources) Anxiety disorder; Translations: [Anxiety disorder, unspecified] 09-22-2020 Chronic Biliary tract disease (9 sources) Cyst of biliary tract; 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] Onset: 10-08-2024 Chronic Cardiac dysrhythmias (8 sources) Intermittent palpitations; Translations: [Palpitations] 09-22-2020 Episodic Diabetes mellitus without complication (6 sources) Diabetes mellitus; Translations: [Non-insulin dependent diabetes mellitus] 07-02-2023 Chronic Esophageal disorders (19 sources) Gastroesophageal reflux disease; Translations: [Gastro-esophageal reflux disease without esophagitis] Onset: 06-13-2011 06-13-2011 Chronic Essential hypertension (20 sources) Essential hypertension; Translations: [Essential (primary) hypertension] Onset: 11-10-2019 11-10-2019 Chronic Neoplasms of unspecified nature or uncertain behavior (20 sources) Benign neoplasm of pancreas; Translations: [Neoplasm of unspecified behavior of digestive system] Onset: 09-21-2024 Episodic Comment on above: Post splenectomy Other screening for suspected conditions (not mental disorders or infectious disease) (1 source) Encounter for screening mammogram for malignant neoplasm of breast; Translations: [Encounter for screening mammogram for malignant neoplasm of breast] Onset: 11-10-2024 Episodic Other upper respiratory disease (19 sources) Seasonal allergy; Translations: [Other seasonal allergic rhinitis] Onset: 06-13-2011 06-13-2011 Chronic Regional enteritis and ulcerative colitis (20 sources) Proctitis; Translations: [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] Onset: 06-13-2011 06-05-2021 Chronic Past or Other Problems Problem Classification Problem Date Documented Da te Episodic/Chronic Diabetes mellitus without complication (19 sources) Impaired fasting glycemia; Translations: [Impaired fasting glucose] Onset: 06-13-2011 06-05-2021 Episodic Other and unspecified benign neoplasm (19 sources) Polyp of colon; Translations: [Polyp of colon] Onset: 06-13-2011 06-05-2021 Episodic Other gastrointestinal disorders (1 source) Diarrhea, unspecified; Translations: [Diarrhea, unspecified] Onset: 07-13-2024 Episodic Pancreatic disorders (not diabetes) (20 sources) Cyst of pancreas; Translations: [Cyst of pancreas] Onset: 11-12-2019 Episodic Unclassified (7 sources) 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 12-28-2021 Comment on above: With associated lymp h nodes removed [email or web address] Results Test Name Value Interpretation Reference Range Facility PANC ELASTASE, FECALon 11-19 ELASTASE INTERPRETATION Normal Normal Normal [facility] Comment on above: Order Comment: Liliyai miguel Type: STOOL SPECIMEN Ordering Facility: [facility] Address: [address] [place] [address] Performed By: #### P ANCEF #### [facility] CLIA [id number] [address] [place] [address] [place] [address] [place] ELASTASE-1 CONCENTRATION >800 Normal >=200 [facility] Comment on above: Order Comment: Speci men Type: STOOL SPECIMEN Ordering Facility: [facility] Address: [address] [place] [address] Result Comment: Inte rpretation: <100 ug/g: Severe Exocrine Pancreatic Insufficiency 100-199 ug/g: Mild to Moderate Exocrine Pancreatic Insufficiency >=200 ug/g: Normal Performed By: #### P ANCEF #### [facility] CLIA [id number] [address] [place] [address] OF [facility] CNPEv 11-12-2024 CNPN Telephone (GENSMN) -- Noble CALDERON ([id number]) 1950 F Date Time Provider Department 11/12/24 Noble PADILLA During your visit today, we recorded the following information about you: Sharri Thomson 11/12/2024 1:38 PM Signed Patient called she has been expecting a call to discuss her getting a stool sample kit. She is asking can she get a call from [place]. Best contact is listed below. [phone] [place] Calvillo, RN 11/12/2024 4:20 PM Signed Updated patient she can get specimen kit at any [facility] facility Allergies As of Date: 11/12/2024 Noted Allergy Reaction MACROBID (NITROFURANTOIN MONOHYD/*11/15/2010 16 - Unknown PENICILLINS 05/28/2009 TOPROL XL (METOPROLOL SUCCINATE) 08/07/2011 14 - Other: See Comments Comments: Severe burning sensation in both arms and both legs Date Reviewed: 10/22/2023 Reviewed by: Iman Delgado LPN - Fully Assessed Reason for Visit: Patient Question [2777] Prescriptions as of 11/12/2024 - metFORMIN (GLUCOPHAGE) 500 mg tablet Take 500 mg by mouth twice daily with meals. - traZODone (DESYREL) 50 mg tablet TAKE 1 TABLET BY MOUTH EVERYDAY AT BEDTIME - acetaminophen 325 mg cap Take 1 capsule by mouth as needed. - amLODIPine (NORVASC) 5 mg tablet Take 5 mg by mouth once daily. - losartan (COZAAR) 100 mg tablet Take 100 mg by mouth once daily. - clonazePAM (KLONOPIN) 0.5 mg tablet Take 0.5 mg by mouth at bedtime as needed. - FLUoxetine (PROZAC) 20 mg capsule Take 40 mg by mouth once daily. Problem List As Of Date 11/12/2024 Noted Resolved Routine gynecological examination [Z01.419] 06/13/2011 09/18/2011 Class: Chronic Colon polyps [K63.5] 06/13/2011 Ulcerative proctitis (HCC) [K51.20] 06/13/2011 Seasonal allergies [J30.2] 06/13/2011 GERD (gastroesophageal reflux disease) [K21.9] 06/13/2011 Impaired fasting blood sugar [R73.01] 06/13/2011 Adjustment disorder with anxiety [F43.22] 06/13/2011 Essential hypertension [I10] 11/10/2019 Pancreatic mass [K86.89] 11/12/2019 Encounter Status:Closed by ITALIA MOHAN on 11/12/24 Normal [facility] Breast imaging reportOrdered By: Josias Garcia on 11-06-2024 Study report [facility] Imaging Services [address] [place], [place] [id number] SCREENING MAMM (CAD), BILAT MR#: [id number] Acct: [id number] Name: SHILPA CALDERON Rep #: [id number] : 1950 F 74 From: Timothy Garcia MD PCP: Dr. Jeremiah Zamudio MD Status: BRITTANY KEMP Study:SCREENING MAMM (CAD), BILAT Date of Exa m: 11/05/24 Exam# [id number] Ordering Dr: Jeremiah Zamudio MD EXAM: SCREENING MAMM (CAD), BILAT DATE: 11/05/2024 CLINICAL HISTORY: F, Age 74 y/o , SCREENING No family history. BREAST CANCER RISK ASSESSMENT: Not assessed. TECHNIQUE: Bilateral screening digital breast tomosynthesis with 2D and 3D images. Computeraided detection. COMPARISON: Prior exam(s) dated October 16, 2023.. FINDINGS: TISSUE DENSITY: The breast tissue is heterogenously dense, which may obscure small masses. Bilateral Breast Mammographic Findings: No significant masses, calcifications or other abnormalities are identified. Stable bilateral fat containing axillary lymph nodes. No suspicious masses, areas of developing architectural distortion, or suspicious calcifications. There has been no significant interval change. BI/SCREENING MAMM (CAD), BILAT IMPRESSION: OVERALL FINAL ASSESSMENT: BIRADS 2 BENIGN FINDING RECOMMENDATION: Routine annual follow-up in 1 Year A letter with findings and recommendations will be mailed to the patient. Reading Location: [facility] CC: Dr. Jeremiah Zamudio MD ~ Pipe And Test Supervisor: Signed [facility] SCREENING MAMM (CAD), BILATo n 11-05-2024 SCREENING MAMM (CAD), [facility] Imaging Services [address] [place], [place] [address] SCREENING MAMM (CAD), BILAT MR#: [id number] Acct: [id number] Name: SHILPA CALDERON Rep #: [id number] : 1950 F 74 From: Josias zuñiga MD PCP: Dr. Jeremiah Zamudio MD Status: [facility] Study: SCREENING MAMM (CAD), BILAT Date of Exam: 10/09 03/04 Exam# [id number] Ordering Dr: Jeremiah Zamudio MD EXAM: SCREENING MAMM (CAD), BILAT DATE: 11/05/2024 CLINICAL HISTORY: F, Age 74 y/o , SCREENING No family history. BREAST CANCER RISK ASSESSMENT: Not assessed. TECHNIQUE: Bilateral screening digital breast tomosynthesis with 2D and 3D images. Computer aided detection. COMPARISON: Prior exam(s) dated October 16, 2023.. FINDINGS: TISSUE DENSITY: The breast tissue is heterogenously dense, which may obscure small masses. Bilateral Breast Mammographic Findings: No significant masses, calcifications or other abnormalities are identified. Stable bilateral fat containing axillary lymph nodes. No suspicious masses, areas of developing architectural distortion, or suspicious calcifications. There has been no significant interval change. BI/SCREENING MAMM (CAD), BILAT IMPRESSION: OVERALL FINAL ASSESSMENT: BIRADS 2 BENIGN FINDING RECOMMENDATION: Routine annual follow-up in 1 Year A letter with findings and recommendations will be mailed to the patient. Reading Location: [place] [address] CC: Dr. 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 TECHNIQUE: Magnet: 1.5T scanner. Multiplanar MRI of the abdomen with multiple sequences, performed before and after intravenous contrast. Image post-processing {Maximum intensity Projection (MIP), Volume-rendered (VR), Surface shaded display images (SSD) or complex volumetric analysis} was performed at an off-line workstation with concurrent physician supervision, with images created, reviewed and archived. Contrast: IV: 7.5 ml of Elucirem COMPARISON: MR pancreas/biliary 10/16/2023. RESULT: Liver: Normal morphology. Diffuse hepatic steatosis. No mass. Biliary: No bile duct dilation. Gallbladder is unremarkable. Spleen: Splenectomy. Pancreas: Distal pancreatectomy. Multiple pancreatic cystic lesions measuring up to 0.8 cm (4:43). The previously seen 0.6 cm cystic lesion in the pancreatic head/neck (4:40 on MR 10/26/2023) is not seen on this exam. The remaining cystic lesions are unchanged in size. No enhancement, mural nodules, or main duct dilation. Adrenals: No mass. Kidneys: Benign right lower pole cyst. No solid mass. No hydronephrosis. GI tract: No dilation or wall thickening. Normal appendix. Lymph nodes: No abdominal lymphadenopathy. Mesentery/Peritoneum: No ascites. No mass. Vasculature: - Abdominal aorta: No aneurysm. - Celiac and SMA: Patent without stenosis. - Portal venous system (SMV, splenic vein, portal vein and branches): Patent. - Hepatic veins: Patent. Bones/Soft Tissues: No osseous metastasis. Lower thorax: Bibasilar atelectasis/scarring. 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 TECHNIQUE: Magnet: 1.5T scanner. Multiplanar MRI of the abdomen with multiple sequences, performed before and after intravenous contrast. Image post-processing {Maximum intensity Projection (MIP), Volume-rendered (VR), Surface shaded display images (SSD) or complex volumetric analysis} was performed at an off-line workstation with concurrent physician supervision, with images created, reviewed and archived. Contrast: IV: 7.5 ml of Elucirem COMPARISON: MR pancreas/biliary 10/16/2023. RESULT: Liver: Normal morphology. Diffuse hepatic steatosis. No mass. Biliary: No bile duct dilation. Gallbladder is unremarkable. Spleen: Splenectomy. Pancreas: Distal pancreatectomy. Multiple pancreatic cystic lesions measuring up to 0.8 cm (4:43). The previously seen 0.6 cm cystic lesion in the pancreatic head/neck (4:40 on MR 10/26/2023) is not seen on this exam. The remaining cystic lesions are unchanged in size. No enhancement, mural nodules, or main duct dilation. Adrenals: No mass. Kidneys: Benign right lower pole cyst. No solid mass. No hydronephrosis. GI tract: No dilation or wall thickening. Normal appendix. Lymph nodes: No abdominal lymphadenopathy. Mesentery/Peritoneum: No ascites. No mass. Vasculature: - Abdominal aorta: No aneurysm. - Celiac and SMA: Patent without stenosis. - Portal venous system (SMV, splenic vein, portal vein and branches): Patent. - Hepatic veins: Patent. Bones/Soft Tissues: No osseous metastasis. Lower thorax: Bibasilar atelectasis/scarring. 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 No worrisome features. Pipe And Test Supervisor: FATOU Transcribe Date/Time: Oct 08 2024 2:48P Dictated by : DERIAN WALDEN MD This examination was interpreted and the report reviewed and electronically signed by: OBED ZUNIGA MD on Oct 08 2024 4:35PM EST [facility] MR Unspecified body region 3 D post processingon 10-08-2024 * * *Final Report* * * DATE OF EXAM: Oct 08 2024 2:28PM [facility] 0280 - MRI 3D POST PROCESSING / PROCEDURE REASON: IPMN (intraductal papillary mucinous neoplasm) * * * * Physician Interpretation * * * * MRI OF THE ABDOMEN (PANCREAS-BILIARY) WITHOUT AND WITH IV CONTRAST, 3D REFORMATTED IMAGES HISTORY: 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 TECHNIQUE: Magnet: 1.5T scanner. Multiplanar MRI of the abdomen with multiple sequences, performed before and after intravenous contrast. Image post-processing {Maximum intensity Projection (MIP), Volume-rendered (VR), Surface shaded display images (SSD) or complex volumetric analysis} was performed at an off-line workstation with concurrent physician supervision, with images created, reviewed and archived. Contrast: IV: 7.5 ml of Elucirem COMPARISON: MR pancreas/biliary 10/16/2023. RESULT: Liver: Normal morphology. Diffuse hepatic steatosis. No mass. Biliary: No bile duct dilation. Gallbladder is unremarkable. Spleen: Splenectomy. Pancreas: Distal pancreatectomy. Multiple pancreatic cystic lesions measuring up to 0.8 cm (4:43). The previously seen 0.6 cm cystic lesion in the pancreatic head/neck (4:40 on MR 10/26/2023) is not seen on this exam. The remaining cystic lesions are unchanged in size. No enhancement, mural nodules, or main duct dilation. Adrenals: No mass. Kidneys: Benign right lower pole cyst. No solid mass. No hydronephrosis. GI tract: No dilation or wall thickening. Normal appendix. Lymph nodes: No abdominal lymphadenopathy. Mesentery/Peritoneum: No ascites. No mass. Vasculature: - Abdominal aorta: No aneurysm. - Celiac and SMA: Patent without stenosis. - Portal venous system (SMV, splenic vein, portal vein and branches): Patent. - Hepatic veins: Patent. Bones/Soft Tissues: No osseous metastasis. Lower thorax: Bibasilar atelectasis/scarring. 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 TECHNIQUE: Magnet: 1.5T scanner. Multiplanar MRI of the abdomen with multiple sequences, performed before and after intravenous contrast. Image post-processing {Maximum intensity Projection (MIP), Volume-rendered (VR), Surface shaded display images (SSD) or complex volumetric analysis} was performed at an off-line workstation with concurrent physician supervision, with images created, reviewed and archived. Contrast: IV: 7.5 ml of Elucirem COMPARISON: MR pancreas/biliary 10/16/2023. RESULT: Liver: Normal morphology. Diffuse hepatic steatosis. No mass. Biliary: No bile duct dilation. Gallbladder is unremarkable. Spleen: Splenectomy. Pancreas: Distal pancreatectomy. Multiple pancreatic cystic lesions measuring up to 0.8 cm (4:43). The previously seen 0.6 cm cystic lesion in the pancreatic head/neck (4:40 on MR 10/26/2023) is not seen on this exam. The remaining cystic lesions are unchanged in size. No enhancement, mural nodules, or main duct dilation. Adrenals: No mass. Kidneys: Benign right lower pole cyst. No solid mass. No hydronephrosis. GI tract: No dilation or wall thickening. Normal appendix. Lymph nodes: No abdominal lymphadenopathy. Mesentery/Peritoneum: No ascites. No mass. Vasculature: - Abdominal aorta: No aneurysm. - Celiac and SMA: Patent without stenosis. - Portal venous system (SMV, splenic vein, portal vein and branches): Patent. - Hepatic veins: Patent. Bones/Soft Tissues: No osseous metastasis. Lower thorax: Bibasilar atelectasis/scarring. 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 No worrisome features. Pipe And Test Supervisor: VIVIEfrain Transcribe Date/Time: Oct 08 2024 2:48P Dictated by : DERIAN WALDEN MD This examination was interpreted and the report reviewed and electronically signed by: OBED ZUNIGA MD on Oct 08 2024 4:35PM EST [facility] MRI 3D POST PROCESSINGon MRI 3D POST PROCESSING * * *Final Report * * * DATE OF EXAM: Oct 08 2024 2:28PM [facility] 0280 - MRI 3D POST PROCESSING / PROCEDURE REASON: IPMN (intraductal papillary mucinous neoplasm) * * * * Physician Interpretation * * * * MRI OF THE ABDOMEN (PANCREAS-BILIARY) WITHOUT AND WITH IV CONTRAST, 3D REFORMATTED IMAGES HISTORY: 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 TECHNIQUE: Magnet: 1.5T scanner. Multiplanar MRI of the abdomen with multiple sequences, performed before and after intravenous contrast. Image post-processing {Maximum intensity Projection (MIP), Volume-rendered (VR), Surface shaded display images (SSD) or complex volumetric analysis} was performed at an off-line workstation with concurrent physician supervision, with images created, reviewed and archived. Contrast: IV: 7.5 ml of Elucirem COMPARISON: MR pancreas/biliary 10/16/2023. RESULT: Liver: Normal morphology. Diffuse hepatic steatosis. No mass. Biliary: No bile duct dilation. Gallbladder is unremarkable. Spleen: Splenectomy. Pancreas: Distal pancreatectomy. Multiple pancreatic cystic lesions measuring up to 0.8 cm (4:43). The previously seen 0.6 cm cystic lesion in the pancreatic head/neck (4:40 on MR 10/26/2023) is not seen on this exam. The remaining cystic lesions are unchanged in size. No enhancement, mural nodules, or main duct dilation. Adrenals: No mass. Kidneys: Benign right lower pole cyst. No solid mass. No hydronephrosis. GI tract: No dilation or wall thickening. Normal appendix. Lymph nodes: No abdominal lymphadenopathy. Mesentery/Peritoneum: No ascites. No mass. Vasculature: - Abdominal aorta: No aneurysm. - Celiac and SMA: Patent without stenosis. - Portal venous system (SMV, splenic vein, portal vein and branches): Patent. - Hepatic veins: Patent. Bones/Soft Tissues: No osseous metastasis. Lower thorax: Bibasilar atelectasis/scarring. 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 No worrisome features. Pipe And Test Supervisor: PSCB Transcribe Date/Time: Oct 08 2024 2:48P Dictated by : DERIAN WALDEN MD This examination was interpreted and the report reviewed and electronically signed by: OBED ZUNIGA MD on Oct 08 2024 4:35PM EST [id number] Normal [facility] MRI PANC/ESPERANZA WO/W IVCONon MRI PANC/ESPERANZA WO/W IVCON * * *Final Report* * * DATE OF EXAM: Oct 08 2024 2:28PM [facility] 0730 - MRI PANC/ESPERANZA WO/W IVCON / PROCEDURE REASON: multiple diagnoses * * * * Physician Interpretation * * * * MRI OF THE ABDOMEN (PANCREAS-BILIARY) WITHOUT AND WITH IV CONTRAST, 3D REFORMATTED IMAGES HISTORY: 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 TECHNIQUE: Magnet: 1.5T scanner. Multiplanar MRI of the abdomen with multiple sequences, performed before and after intravenous contrast. Image post-processing {Maximum intensity Projection (MIP), Volume-rendered (VR), Surface shaded display images (SSD) or complex volumetric analysis} was performed at an off-line workstation with concurrent physician supervision, with images created, reviewed and archived. Contrast: IV: 7.5 ml of Elucirem COMPARISON: MR pancreas/biliary 10/16/2023. RESULT: Liver: Normal morphology. Diffuse hepatic steatosis. No mass. Biliary: No bile duct dilation. Gallbladder is unremarkable. Spleen: Splenectomy. Pancreas: Distal pancreatectomy. Multiple pancreatic cystic lesions measuring up to 0.8 cm (4:43). The previously seen 0.6 cm cystic lesion in the pancreatic head/neck (4:40 on MR 10/26/2023) is not seen on this exam. The remaining cystic lesions are unchanged in size. No enhancement, mural nodules, or main duct dilation. Adrenals: No mass. Kidneys: Benign right lower pole cyst. No solid mass. No hydronephrosis. GI tract: No dilation or wall thickening. Normal appendix. Lymph nodes: No abdominal lymphadenopathy. Mesentery/Peritoneum: No ascites. No mass. Vasculature: - Abdominal aorta: No aneurysm. - Celiac and SMA: Patent without stenosis. - Portal venous system (SMV, splenic vein, portal vein and branches): Patent. - Hepatic veins: Patent. Bones/Soft Tissues: No osseous metastasis. Lower thorax: Bibasilar atelectasis/scarring. 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 No worrisome features. 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 No worrisome features. Pipe And Test Supervisor: [facility] Transcribe Date/Time: Oct 08 2024 2:48P Dictated by : DERIAN WALDEN MD This examination was interpreted and the report reviewed and electronically signed by: OBED ZUNIGA MD on Oct 08 2024 4:35PM EST DIVISION OF RADIOLOGY Radiology Study observation (narrative) [facility] No Panel InformationOrdered By: [facility]cf Provider on 10-08-2024 [facility] Cancer Ag19-9 SerPl-aCncon 0 09-21-2024 Cancer Ag 19-9 Qn 5.0 [arb'U]/mL Normal <36.0 [facility] Comment on above: Order Comment: Speci men Type: BLOOD SPECIMEN Ordering Facility: [facility] Address: [address] [place] [address] Result Comment: Rust er antigen 19-9 test is used as an aid in monitoring response to treatment or recurrence in patients with established pancreatic, hepatobiliary, or gastrointestinal malignancies. Clinical correlation is required. The CA 19-9 Antigen test was performed using the Rasheed Paragonah Unicel DXI paramagnetic particle chemiluminescent immunoassay method. Results obtained with different assay methods or kits cannot be used interchangeably. Performed By: #### 2 4108-3 #### [facility] CLIA [id number] [address] [place], [place] [address] [id number], [place] [address] [place] Miscellaneous Lab Procedureo n 06-04-2024 [facility] Normal [facility] Comment on above: Order Comment: #[id number] STOOL CULTURE Result Comment: STOO L CULTURE Salmonella/Shigella Screen Final Report Result 1 NO Salmonella or Shigella recovered. Campylobacter Culture Final Report Result 1 NO Campylobacter species isolated. E. coli Shiga Toxin EIA NEGATIVE [facility] ORIGINAL REPORT ON FILE IN LAB CONTAINS ADDITIONAL TEST SITE INFORMATION. Performed By: #### L 801.1541 #### [facility] [address] [place], [address] CBC W/Diff, Automatedon - Absolute Lymph 3.79 X10 3/uL Normal 0.83-4.51 [facility] Comment on above: Performed By: #### L 100.0100, L500.4050 #### [facility] [address] [place], [address] Absolute Neut 6.3 X10 3/uL Normal 2.0-7.7 [facility] Comment on above: Performed By: #### L 100.0100, L500.4050 #### [facility] [address] [place], [address] Basophils/100 WBC (Bld) 1.0 % Normal 0-1 [facility] Comment on above: Performed By: #### L 100.0100, L500.4050 #### [facility] [address] [place], [address] Eosinophils/100 WBC (Bld) 1.8 % Normal 0-5 [facility] Comment on above: Performed By: #### L 100.0100, L500.4050 #### [facility] [address] [place], [address] Erythrocyte distribution width (RBC) [Ratio] 13.2 % Normal 11.6-14.6 [facility] Comment on above: Performed By: #### L 100.0100, L500.4050 #### [facility] [address] [place], [address] Hematocrit (Bld) [Volume fraction] 35.6 % Low 37-47 [facility] Comment on above: Performed By: #### L 100.0100, L500.4050 #### [facility] [address] [place], [address] Hemoglobin (Bld) [Mass/Vol] 11.1 g/dL Low 12.0-15.0 [facility] Comment on above: Performed By: #### L 100.0100, L500.4050 #### [facility] [address] [place], [address] IG% 0.400 Normal 0.0-0.9 [facility] Comment on above: Result Comment: IG% - Immature Granulocytes (promyelocytes, myelocytes and metamyelocytes) > 1% indicates that a LEFT SHIFT is Present. Performed By: #### L 100.0100, L500.4050 #### [facility] [address] [place], [address] Lymphocytes/100 WBC (Bld) 33.6 % Normal 19-41 [facility] Comment on above: Performed By: #### L 100.0100, L500.4050 #### [facility] [address] [place], [address] MCH (RBC) [Entitic mass] 28.4 pg Normal 27.0-32.0 [facility] Comment on above: Performed By: #### L 100.0100, L500.4050 #### [facility] [address] [place], [address] MCHC (RBC) [Mass/Vol] 31.2 g/dL Low 32-36 [facility] Comment on above: Performed By: #### L 100.0100, L500.4050 #### [facility] [address] [place], [address] MCV (RBC) [Entitic vol] 91.0 fL Normal 81-99 [facility] Comment on above: Performed By: #### L 100.0100, L500.4050 #### [facility] [address] [place], [address] Monocytes/100 WBC (Bld) 7.7 % Normal 0-10 [facility] Comment on above: Performed By: #### L 100.0100, L500.4050 #### [facility] [address] [place], [address] Neutrophils/100 WBC (Bld) 55.5 % Normal 47-70 [facility] Comment on above: Performed By: #### L 100.0100, L500.4050 #### [facility] [address] [place], [address] Nucleated RBC (Bld) [#/Vol] 0 10*3/uL Normal 0-5 [facility] Comment on above: Performed By: #### L 100.0100, L500.4050 #### [facility] [address] [place], [address] Platelet mean volume (Bld) [Entitic vol] 9.5 fL Normal 6.2-12.0 [facility] Comment on above: Performed By: #### L 100.0100, L500.4050 #### [facility] [address] [place], [address] Platelets (Bld) [#/Vol] 653 10*3/uL High 150-450 [facility] Comment on above: Performed By: #### L 100.0100, L500.4050 #### [facility] [address] [place], [address] RBC (Bld) [#/Vol] 3.91 10*6/uL Low 4.2-5.4 [facility] Comment on above: Performed By: #### L 100.0100, L500.4050 #### [facility] [address] [place], [address] RDW SD 43.9 fl Normal 35.1-43.9 [facility] Comment on above: Performed By: #### L 100.0100, L500.4050 #### [facility] [address] [place], [address] WBC (Bld) [#/Vol] 11.3 10*3/uL High 4.4-11.0 [facility] Comment on above: Performed By: #### L 100.0100, L500.4050 #### [facility] [address] [place], [address] [facility] 05-28-2024 Albumin [Mass/Vol] 4.1 g/dL Normal 3.2-5.0 [facility] Comment on above: Performed By: #### L 100.0100, L500.4050 #### [facility] [address] [place], [address] Albumin/Globulin [Mass ratio] 1.1 {ratio} Normal 0.9-2.4 [facility] Comment on above: Performed By: #### L 100.0100, L500.4050 #### [facility] [address] [place], [address] ALK P 66 U/L Normal 45-117 [facility] Comment on above: Performed By: #### L 100.0100, L500.4050 #### [facility] [address] [place], [address] ALT [Catalytic activity/Vol] 29 U/L Normal 13-56 [facility] Comment on above: Performed By: #### L 100.0100, L500.4050 #### [facility] [address] [place], [address] AST [Catalytic activity/Vol] 15 U/L Normal 15-37 [facility] Comment on above: Performed By: #### L 100.0100, L500.4050 #### [facility] [address] [place], [address] Bilirubin [Mass/Vol] 0.30 mg/dL Normal 0.20-1.00 [facility] Comment on above: Result Comment: For patients on eltrombopag therapy, use of Dimension [place] TBIL is not recommended. Performed By: #### L 100.0100, L500.4050 #### [facility] [address] [place], [address] BUN/CRE 23.8 RATIO High 10-20 [facility] Comment on above: Performed By: #### L 100.0100, L500.4050 #### [facility] [address] [place], [address] CA,Total 9.1 mg/dL Normal 8.5-10.1 [facility] Comment on above: Performed By: #### L 100.0100, L500.4050 #### [facility] [address] [place], [address] Chloride [Moles/Vol] 107 mmol/L Normal 98-107 [facility] Comment on above: Performed By: #### L 100.0100, L500.4050 #### [facility] [address] [place], [address] CO2 [Moles/Vol] 25.0 mmol/L Normal 21.0-32.0 [facility] Comment on above: Performed By: #### L 100.0100, L500.4050 #### [facility] [address] [place], [address] Creatinine [Mass/Vol] 0.84 mg/dL Normal 0.55-1.02 [facility] Comment on above: Result Comment: The validity of the calculated GFR GFRAA in patients over 70 years has not been determined. Clinical correlation is essential. Performed By: #### L 100.0100, L500.4050 #### [facility] [address] [place], [address] EST GFR - AA 85 mL/min Normal >60 [facility] Comment on above: Result Comment: Afri can Cypriot GFR Calc Performed By: #### L 100.0100, L500.4050 #### [facility] [address] [place], [address] GAP 5 Normal 5-15 [facility] Comment on above: Performed By: #### L 100.0100, L500.4050 #### [facility] [address] [place], [address] GFR/1.73 sq M.predicted among non-blacks MDRD (S/P/Bld) [Vol rate/Area] 71 mL/min/{1.73_m2} Normal >60 [facility] Comment on above: Result Comment: Non- GFR Calc Performed By: #### L 100.0100, L500.4050 #### [facility] [address] [place], [address] Globulin (S) [Mass/Vol] 3.7 g/dL Normal 2.2-4.2 [facility] Comment on above: Performed By: #### L 100.0100, L500.4050 #### [facility] [address] [place], [address] Glucose [Mass/Vol] 116 mg/dL High 74-106 [facility] Comment on above: Result Comment: Fast ing Glucose result from 100 to 125 mg/dL suggests IMPAIRED HOMEOSTASIS per A.D.A. criteria. Performed By: #### L 100.0100, L500.4050 #### [facility] [address] [place], [address] Potassium [Moles/Vol] 4.3 mmol/L Normal 3.5-5.1 [facility] Comment on above: Performed By: #### L 100.0100, L500.4050 #### [facility] [address] [place], [address] Sodium [Moles/Vol] 137 mmol/L Normal 136-145 [facility] Comment on above: Performed By: #### L 100.0100, L500.4050 #### [facility] [address] [place], [address] T PROT 7.8 g/dL Normal 6.4-8.2 [facility] Comment on above: Performed By: #### L 100.0100, L500.4050 #### [facility] [address] [place], [address] Urea nitrogen [Mass/Vol] 20 mg/dL High 7-18 [facility] Comment on above: Performed By: #### L 100.0100, L500.4050 #### [facility] [address] [place], [address] MR Biliary ducts and Pancrea tic duct WO and W contrast April 10-16-2023 IMPRESSION: Stable changes following distal pancreatectomy and splenectomy with several subcentimeter side branch IPMNs within the remaining pancreas, unchanged from prior. No worrisome features. Hepatic steatosis. 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 TECHNIQUE: Magnet: 1.5T scanner. Multiplanar MRI of the abdomen with multiple sequences, performed before and after intravenous contrast. Additional MR cholangiopancreatography sequences were performed. Contrast: Intravenous: 15 ml of Dotarem COMPARISON: MR 10/27/2022 RESULT: Liver: Normal morphology. Diffuse hepatic steatosis. No mass. Biliary: No intrahepatic or extrahepatic bile duct dilation. No biliary filling defect. Gallbladder is normal. Pancreas: Postoperative changes of distal pancreatectomy. Normal appearance of the surgical margin. No main duct dilation. Several side branch IPMNs with the largest 9 mm in the head/uncinate process (4:41); all are stable from prior exam. No new or enlarging cysts. No solid/enhancing mass or worrisome features. Spleen: Splenectomy. Adrenals: No mass. Kidneys: No solid mass. Benign right lower pole cysts. No hydronephrosis. GI: No dilated bowel or wall thickening along imaged segments. Lymph nodes: No abdominal lymphadenopathy. Mesentery/Peritoneum/Retro peritoneum: No ascites or mass. Vasculature: - Abdominal aorta: No aneurysm. - Celiac and SMA: Patent without stenosis. - Portal venous system (SMV, splenic vein, portal vein and branches): Patent. - Hepatic veins: Patent. Bones/Soft Tissues: No suspicious lesion. Lower chest: Unremarkable. Detention Sergeant (localizer) images: No additional findings. DIVISION OF RADIOLOGY Provider, 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 TECHNIQUE: Magnet: 1.5T scanner. Multiplanar MRI of the abdomen with multiple sequences, performed before and after intravenous contrast. Additional MR cholangiopancreatography sequences were performed. Contrast: Intravenous: 15 ml of Dotarem COMPARISON: MR 10/27/2022 RESULT: Liver: Normal morphology. Diffuse hepatic steatosis. No mass. Biliary: No intrahepatic or extrahepatic bile duct dilation. No biliary filling defect. Gallbladder is normal. Pancreas: Postoperative changes of distal pancreatectomy. Normal appearance of the surgical margin. No main duct dilation. Several side branch IPMNs with the largest 9 mm in the head/uncinate process (4:41); all are stable from prior exam. No new or enlarging cysts. No solid/enhancing mass or worrisome features. Spleen: Splenectomy. Adrenals: No mass. Kidneys: No solid mass. Benign right lower pole cysts. No hydronephrosis. GI: No dilated bowel or wall thickening along imaged segments. Lymph nodes: No abdominal lymphadenopathy. Mesentery/Peritoneum/Retro peritoneum: No ascites or mass. Vasculature: - Abdominal aorta: No aneurysm. - Celiac and SMA: Patent without stenosis. - Portal venous system (SMV, splenic vein, portal vein and branches): Patent. - Hepatic veins: Patent. Bones/Soft Tissues: No suspicious lesion. Lower chest: Unremarkable. Detention Sergeant (localizer) images: No additional findings. IMPRESSION IMPRESSION: Stable changes following distal pancreatectomy and splenectomy with several subcentimeter side branch IPMNs within the remaining pancreas, unchanged from prior. No worrisome features. Hepatic steatosis. Pipe And Test Supervisor: FATOU Transcribe Date/Time: Oct 16 2023 11:31A Dictated by : MADELIN CUEVAS MD This examination was interpreted and the report reviewed and electronically signed by: TANIKA CARLOS MD on Oct 16 2023 12:24PM EST [facility] Radiology Study observation (narrative) [facility] MR Biliary ducts and Pancrea tic duct WO and W contrast IVOrdered By: [facility] Provider on 10-16-2023 [facility] Absolute lymphocyte countOrd ered By: Jeremiah Zamudio on 07-02-2023 Lymphocytes Auto (Unsp spec) [#/Vol] 4.46 10*3/uL 0.83-4.51 [facility] Absolute lymphocyte countOrd ered By: Dain Wheeler on 07-02-2023 Lymphocytes Auto (Unsp spec) [#/Vol] 8.70 10*3/uL 0.83-4.51 [facility] Activated partial thrombopla stin time (aPTT) in platelet poor plasma by coagulation aOrdered By: Dain Wheeler on 07-02-2023 aPTT Coag (PPP) [Time] 23.2 s 24.1-36.2 [facility] Automated lymphocyte count a s percentage of total leukocytesOrdered By: Jeremiah Zamudio on 07-02-2023 Lymphocytes/100 WBC Auto (Unsp spec) 32.6 % - [facility] Automated lymphocyte count a s percentage of total leukocytesOrdered By: Dain Wheeler on 07-02-2023 Lymphocytes/100 WBC Auto (Unsp spec) 46.7 % - [facility] Basophil percentageOrdered B y: Jeremiah Zamudio on 07-02-2023 Basophils/100 WBC (Bld) 0.7 % 0-1 [facility] Chloride [Moles/Vol] 108 mmol/L 98-107 [facility] Cholesterol [Mass/Vol] 168 mg/dL <200 [facility] Comment on above: <200 mg/dL Desirable 200-240 mg/dL Borderline >240 mg/dL High Risk Eosinophils/100 WBC (Bld) 1.1 % 0-5 [facility] Glucose [Mass/Vol] 114 mg/dL 74-106 [facility] Comment on above: Fasting Glucose resu lt from 100 to 125 mg/dL suggests IMPAIRED HOMEOSTASIS per A.D.A. criteria. Hemoglobin (Bld) [Mass/Vol] 10.5 g/dL 12.0-15.0 [facility] Monocytes/100 WBC (Bld) 7.7 % 0-10 [facility] Neutrophils (Bld) [#/Vol] 7.9 10*3/uL 2.0-7.7 [facility] Neutrophils/100 WBC (Bld) 57.5 % 47-70 [facility] Potassium [Moles/Vol] 3.9 mmol/L 3.5-5.1 [facility] Sodium [Moles/Vol] 140 mmol/L 136-145 [facility] Triglyceride [Mass/Vol] 99 mg/dL <199 [facility] Comment on above: The drugs N-Acetylcy steine and Metamizole may falsely depress this assay.Serum Triglycerides Reference Interval Normal <150 mg/dL Borderline high 150 - 199 mg/dL High 200 - 499 mg/dL Very High > or = 500 mg/dL WBC (Bld) [#/Vol] 13.7 10*3/uL 4.4-11.0 [facility] Basophil percentageOrdered B y: Dain Wheeler on 07-02-2023 Basophil percentage 0 SEEN /hpf 0-5 [facility] Basophils/100 WBC (Bld) 0.8 % 0-1 [facility] Chloride [Moles/Vol] 107 mmol/L 98-107 [facility] Eosinophils/100 WBC (Bld) 1.3 % 0-5 [facility] Glucose [Mass/Vol] 107 mg/dL 74-106 [facility] Comment on above: Fasting Glucose resu lt from 100 to 125 mg/dL suggests IMPAIRED HOMEOSTASIS per A.D.A. criteria. Hemoglobin (Bld) [Mass/Vol] 12.0 g/dL 12.0-15.0 [facility] Monocytes/100 WBC (Bld) 8.4 % 0-10 [facility] Neutrophils (Bld) [#/Vol] 7.9 10*3/uL 2.0-7.7 [facility] Neutrophils/100 WBC (Bld) 42.5 % 47-70 [facility] Potassium [Moles/Vol] 3.9 mmol/L 3.5-5.1 [facility] Sodium [Moles/Vol] 140 mmol/L 136-145 [facility] WBC (Bld) [#/Vol] 18.6 10*3/uL 4.4-11.0 [facility] Bilirubin Test strip Ql (U)O rdered By: Dain Wheeler on 07-02-2023 Bilirubin Ql (U) Negative Negative [facility] Blood manual differential co mment interpretation (narrative result)Ordered By: Dain Wheeler on 07-02-2023 Manual differential comment Yonis (Bld) [Interp] SCANNED [facility] Comment on above: LYMPHOPENIA PRESENTM ONOCYTOSIS PRESENT Determination of erythrocyte mean corpuscular volume (MCV)Ordered By: Jeremiah Zamudio on 07-02-2023 MCV (RBC) [Entitic vol] 90.0 fL 81-99 [facility] Determination of erythrocyte mean corpuscular volume (MCV)Ordered By: Dain Wheeler on 07-02-2023 MCV (RBC) [Entitic vol] 90.0 fL 81-99 [facility] Erythrocyte distribution wid th ratioOrdered By: Jeremiah Zamudio on 07-02-2023 Erythrocyte distribution width (RBC) [Ratio] 12.6 % 11.6-14.6 [facility] Erythrocyte distribution wid th ratioOrdered By: Dain Wheeler on 07-02-2023 Erythrocyte distribution width (RBC) [Ratio] 12.5 % 11.6-14.6 [facility] Erythrocyte distribution wid th standard deviationOrdered By: Jeremiah Zamudio on 07-02-2023 Erythrocyte distribution width (RBC) [Entitic vol] 41.1 fL 35.1-43.9 [facility] Erythrocyte distribution wid th standard deviationOrdered By: Dain Wheeler on 07-02-2023 Erythrocyte distribution width (RBC) [Entitic vol] 40.6 fL 35.1-43.9 [facility] Hematocrit Auto (Bld) [Volum e fraction]Ordered By: Jeremiah Zamudio on 07-02-2023 Hematocrit (Bld) [Volume fraction] 32.5 % 37-47 [facility] Hematocrit Auto (Bld) [Volum e fraction]Ordered By: Dain Wheeler on 07-02-2023 Hematocrit (Bld) [Volume fraction] 36.9 % 37-47 [facility] High density lipoprotein (HD L) measurementOrdered By: Jeremiah Zamudio on 07-02-2023 Cholesterol in HDL (Body fld) [Mass/Vol] 55 mg/dL >40 [facility] Comment on above: The drugs N-Acetylcy steine and Metamizole may falsely depress this assay. Reference Range HDL <40 mg/dL Low HDL Cholesterol HDL >or= 60 mg/dL High HDL Cholesterol Immature granulocytes/100 WB C Auto (Bld)Ordered By: Jeremiah Zamudio on 07-02-2023 Immature granulocytes/100 WBC (Bld) 0.400 % 0.0-0.9 [facility] Comment on above: IG% - Immature Granu locytes (promyelocytes, myelocytes and metamyelocytes) > 1% indicates that a LEFT SHIFT is Present. Immature granulocytes/100 WB C Auto (Bld)Ordered By: Dain Wheeler on 07-02-2023 Immature granulocytes/100 WBC (Bld) 0.300 % 0.0-0.9 [facility] Comment on above: IG% - Immature Granu locytes (promyelocytes, myelocytes and metamyelocytes) > 1% indicates that a LEFT SHIFT is Present. International normalized rat io (INR) calculationOrdered By: Dain Wheeler on 07-02-2023 INR Coag (PPP) [Relative time] 0.9 {INR} [facility] Ketones Test strip Ql (U)Ord ered By: Dain Wheeler on 07-02-2023 Ketones Ql (U) 5 mg/dl Negative [facility] Laboratory - Chemistry and C hemistry - challengeOrdered By: Jeremiah Zamudio on 07-02-2023 CO2 [Moles/Vol] 26.0 mmol/L 21.0-32.0 [facility] Urea nitrogen/Creatinine [Mass ratio] 21.8 mg/mg 10- [facility] Laboratory - Chemistry and C hemistry - challengeOrdered By: Dain Wheeler on 07-02-2023 CO2 [Moles/Vol] 26.0 mmol/L 21.0-32.0 [facility] Magnesium [Mass/Vol] 2.2 mg/dL 1.6-2.6 [facility] Urea nitrogen/Creatinine [Mass ratio] 17.3 mg/mg 10- [facility] Laboratory - CoagulationOrde red By: Dain Wheeler on 07-02-2023 PT Coag (PPP) [Time] 12.4 s 11.7-14.9 [facility] Laboratory - Hematology and Cell countsOrdered By: Jeremiah Zamudio on 07-02-2023 MCH (RBC) [Entitic mass] 29.1 pg 27.0-32.0 [facility] MCHC (RBC) [Mass/Vol] 32.3 g/dL 32-36 [facility] Nucleated RBC/100 WBC (Bld) [Ratio] 0 % 0-5 [facility] Platelets (Bld) [#/Vol] 536 10*3/uL 150-450 [facility] Laboratory - Hematology and Cell countsOrdered By: Dain Wheeler on 07-02-2023 MCH (RBC) [Entitic mass] 29.3 pg 27.0-32.0 [facility] MCHC (RBC) [Mass/Vol] 32.5 g/dL 32-36 [facility] Nucleated RBC/100 WBC (Bld) [Ratio] 0 % 0-5 [facility] Platelets (Bld) [#/Vol] 598 10*3/uL 150-450 [facility] Low density lipoprotein (LDL ) cholesterol measurementOrdered By: Jeremiah Zamudio on 07-02-2023 Cholesterol in LDL (Body fld) [Moles/Vol] 93 mg/dL 0-130 [facility] Mucus LM Ql (Urine sed)Order ed By: Dain Wheeler on 07-02-2023 Mucus Ql (Urine sed) 0 SEEN /hpf [facility] Nitrite Test strip Ql (U)Ord ered By: Dain Wheeler on 07-02-2023 Nitrite Ql (U) Negative Negative [facility] No Panel InformationOrdered By: Jeremiah Zamudio on 07-02-2023 Estimated Creatinine Clearance Calc 54.46 ml/min [facility] Estimated GFR (MDRD) Amer 82 mL/min >60 [facility] Comment on above: GFR Calc Estimated GFR (MDRD) Non-Af Amer 68 mL/min >60 [facility] Comment on above: Non- GFR Calc No Panel InformationOrdered By: Dain Wheeler on 07-02-2023 Urine RBC 0 SEEN /hpf 0-5 [facility] Estimated Creatinine Clearance Calc 43.83 ml/min [facility] Estimated GFR (MDRD) Amer 63 mL/min >60 [facility] Comment on above: GFR Calc Estimated GFR (MDRD) Non-Af Amer 52 mL/min >60 [facility] Comment on above: Non- GFR Calc Platelet mean volume [place] (Bld) [Entitic vol]Ordered By: Jeremiah Zamudio on 07-02-2023 Platelet mean volume (Bld) [Entitic vol] 9.3 fL 6.2-12.0 [facility] Platelet mean volume [place] (Bld) [Entitic vol]Ordered By: Dain Wheeler on 07-02-2023 Platelet mean volume (Bld) [Entitic vol] 9.2 fL 6.2-12.0 [facility] Protein Test strip Ql (U)Ord ered By: Dain Wheeler on 07-02-2023 Protein Ql (U) Negative Negative [facility] RBC Auto (Bld) [#/Vol]Ordere d By: Jeremiah Zamudio on 07-02-2023 RBC (Bld) [#/Vol] 3.61 10*6/uL 4.2-5.4 [facility] RBC Auto (Bld) [#/Vol]Ordere d By: Dain Wheeler on 07-02-2023 RBC (Bld) [#/Vol] 4.10 10*6/uL 4.2-5.4 [facility] Review by pathologistOrdered By: Dain Wheeler on 07-02-2023 Pathologist review Yonis (Unsp spec) [Interp] Lilo plascencia [facility] Pathologist review Yonis (Unsp spec) [Interp] Reviewed [facility] Comment on above: Previous reported re sult: Lilo plascencia Edited by: RGOOD on 07/03/23:1430Leukocytosis.Clinical correlation necessary.Joe Antoine M.D. 07/03/23 AMENDED REPORT 07/03/23 1430 PATH REV previously reported as: Lilo plascencia Serum or plasma calcium john urement (mass/volume)Ordered By: Jeremiah Zamudio on 07-02-2023 Calcium [Mass/Vol] 9.3 mg/dL 8.5-10.1 [facility] Serum or plasma calcium john urement (mass/volume)Ordered By: Dain Wheeler on 07-02-2023 Calcium [Mass/Vol] 9.6 mg/dL 8.5-10.1 [facility] Serum or plasma creatinine m easurement (mass/volume)Ordered By: Jeremiah Zamudio on 07-02-2023 Creatinine [Mass/Vol] 0.87 mg/dL 0.55-1.02 [facility] Comment on above: The validity of the calculated GFR & GFRAA in patients over 70 years has not been determined. Clinical correlation is essential. Serum or plasma creatinine m easurement (mass/volume)Ordered By: Dain Wheeler on 07-02-2023 Creatinine [Mass/Vol] 1.10 mg/dL 0.55-1.02 [facility] Comment on above: The validity of the calculated GFR & GFRAA in patients over 70 years has not been determined. Clinical correlation is essential. Serum or plasma urea nitroge n measurement (mass/volume)Ordered By: Jeremiah Zamudio on 07-02-2023 Urea nitrogen [Mass/Vol] 19 mg/dL 12-25 [facility] Serum or plasma urea nitroge n measurement (mass/volume)Ordered By: Dain Wheeler on 07-02-2023 Urea nitrogen [Mass/Vol] 19 mg/dL 12-25 [facility] Squamous epithelial cells de tection in urine sediment by light microscopyOrdered By: Dain Wheeler on 07-02-2023 Epithelial cells.squamous LM Ql (Urine sed) 0 SEEN /hpf 5-10 [facility] Thin prep Papanicolaou smear with manual screeningOrdered By: Yris Sanchez on 07-02-2023 Thin prep Papanicolaou smear with manual screening 156 mg/dL 74-106 [facility] Comment on above: MANAGEMENT OF PATIEN T CARE PER NURSING PROTOCOL Thin prep Papanicolaou smear with manual screeningOrdered By: Jeremiah Zamudio on 07-02-2023 Thin prep Papanicolaou smear with manual screening 6 5-15 [facility] Thin prep Papanicolaou smear with manual screeningOrdered By: Dain Wheeler on 07-02-2023 Thin prep Papanicolaou smear with manual screening 7 -15 [facility] Thin prep Papanicolaou smear with manual screening 89 mg/dL 74-106 [facility] Comment on above: MANAGEMENT OF PATIEN T CARE PER NURSING PROTOCOL Urine blood detectionOrdered By: Dain Wheeler on 07-02-2023 RBC Ql (U) Negative Negative [facility] Urine clarityOrdered By: Micky Wheeler on 07-02-2023 Clarity (U) Clear Clear [facility] Urine color determinationOrd ered By: Dain Wheeler on 07-02-2023 Color (U) Yellow Yellow [facility] Urine glucose detectionOrder ed By: Dain Wheeler on 07-02-2023 Glucose Ql (U) Normal mg/dl Normal [facility] Urine leukocyte esterase det ection by dipstickOrdered By: Dain Wheeler on 07-02-2023 Leukocyte esterase Test strip Ql (U) Negative Negative [facility] Urine pHOrdered By: Dain molina on 07-02-2023 pH (U) 7.0 [pH] 5.0 - 8.0 [facility] Urine sediment bacteria coun t by microscopy (number/high power field)Ordered By: Dain Wheeler on 07-02-2023 Bacteria LM.HPF (Urine sed) [#/Area] 0 /[HPF] None Seen [facility] Urine specific gravity measu rementOrdered By: Dain Wheeler on 07-02-2023 Specific gravity (U) [Rel density] 1.005 1.002-1.030 [facility] Urine urobilinogen measureme ntOrdered By: Dain Wheeler on 07-02-2023 Urobilinogen Ql (U) Normal mg/dl Normal [facility] Very low density lipoprotein (VLDL) cholesterol measurementOrdered By: Jeremiah Zamudio on 07-02-2023 Cholesterol in VLDL Calc [Moles/Vol] 20 mg/dL 5-40 [facility] Whole blood hemoglobin A1c/t otal hemoglobin ratio (mass fraction)Ordered By: Jeremiah Zamudio on 07-02-2023 HbA1c (Bld) [Mass fraction] 6.8 % 3.8-5.6 [facility] Comment on above: Normal < 5.7 % Predi abetic 5.7 - 6.4 % Diabetic >or= 6.5 % Please note range changes. MRI PANC/ESPERANZA WO/W IVCONon [facility] Basophil percentageOrdered B y: Dr. Zamudio on 09-17-2022 Chloride [Moles/Vol] 107 mmol/L 98-107 [facility] Cholesterol [Mass/Vol] 193 mg/dL <200 [facility] Comment on above: <200 mg/dL Desirable 200-240 mg/dL Borderline >240 mg/dL High Risk Glucose [Mass/Vol] 167 mg/dL 74-106 [facility] Comment on above: Fasting Glucose resu lt greater than or equal to 126 mg/dL suggests DIABETES MELLITUS per A.D.A. criteria. Potassium [Moles/Vol] 4.3 mmol/L 3.5-5.1 [facility] Sodium [Moles/Vol] 138 mmol/L 136-145 [facility] Triglyceride [Mass/Vol] 205 mg/dL <199 [facility] Comment on above: The drugs N-Acetylcy steine and Metamizole may falsely depress this assay.Serum Triglycerides Reference Interval Normal <150 mg/dL Borderline high 150 - 199 mg/dL High 200 - 499 mg/dL Very High > or = 500 mg/dL Laboratory - Chemistry and C hemistry - challengeOrdered By: Dr. Zamudio on 09-17-2022 CO2 [Moles/Vol] 28.0 mmol/L 21.0-32.0 [facility] Urea nitrogen/Creatinine [Mass ratio] 28.4 mg/mg 03-29 [facility] No Panel InformationOrdered By: Dr. Zamudio on 09-17-2022 Vitamin D 25-Hydroxy 13.6 ng/mL [facility] Comment on above: Vitamin D 25(OH) Sta tus Range Deficiency <20 ng/mL (50nmol/L) Insufficiency 20 - 30 ng/mL (50 - 75 nmol/L) Sufficiency 30 - 100 ng/mL (75 - 250 nmol/L) Toxicity >100 ng/mL (>250 nmol/L) Estimated GFR (MDRD) Amer 90 mL/min >60 [facility] Comment on above: GFR Calc Estimated GFR (MDRD) Non-Af Amer 74 mL/min >60 [facility] Comment on above: Non- GFR Calc Serum or plasma calcium john urement (mass/volume)Ordered By: Dr. Zamudio on 09-17-2022 Calcium [Mass/Vol] 9.2 mg/dL 8.5-10.1 [facility] Serum or plasma cholesterol in HDL measurement (mass/volume)Ordered By: Dr. Zamudio on 09-17-2022 Cholesterol in HDL [Mass/Vol] 47 mg/dL >40 [facility] Comment on above: The drugs N-Acetylcy steine and Metamizole may falsely depress this assay. Reference Range HDL <40 mg/dL Low HDL Cholesterol HDL >or= 60 mg/dL High HDL Cholesterol Serum or plasma cholesterol in VLDL measurement (mass/volume)Ordered By: Dr. Zamudio on 09-17-2022 Cholesterol in VLDL [Mass/Vol] 41 mg/dL 5-40 [facility] Serum or plasma creatinine m easurement (mass/volume)Ordered By: Dr. Zamudio on 09-17-2022 Creatinine [Mass/Vol] 0.81 mg/dL 0.55-1.02 [facility] Comment on above: The validity of the calculated GFR & GFRAA in patients over 70 years has not been determined. Clinical correlation is essential. Serum or plasma low density lipoprotein (LDL) cholesterol measurement (mass/volume)Ordered By: Dr. Zamudio on 09-17-2022 Cholesterol in LDL [Mass/Vol] 105 mg/dL 0-130 [facility] Serum or plasma urea nitroge n measurement (mass/volume)Ordered By: Dr. Zamudio on 09-17-2022 Urea nitrogen [Mass/Vol] 23 mg/dL 7-18 [facility] Thin prep Papanicolaou smear with manual screeningOrdered By: Dr. Zamudio on 09-17-2022 Thin prep Papanicolaou smear with manual screening 3 5-15 [facility] Whole blood hemoglobin A1c/t otal hemoglobin ratio (mass fraction)Ordered By: Dr. Zamudio on 09-17-2022 HbA1c (Bld) [Mass fraction] 6.6 % 3.8-5.6 [facility] Comment on above: Normal < 5.7 % Predi abetic 5.7 - 6.4 % Diabetic >or= 6.5 % Please note range changes. Basophil percentageon 2021 Chloride [Moles/Vol] 104 mmol/L 98-107 [facility] Work Phone: Cholesterol [Mass/Vol] 139 mg/dL <200 [facility] Work Phone: Comment on above: <200 mg/dL Desirable 200-240 mg/dL Borderline >240 mg/dL High Risk Glucose [Mass/Vol] 131 mg/dL 74-106 [facility] Work Phone: Comment on above: Fasting Glucose resu lt greater than or equal to 126 mg/dL suggests DIABETES MELLITUS per A.D.A. criteria. Potassium [Moles/Vol] 4.2 mmol/L 3.5-5.1 [facility] Work Phone: Sodium [Moles/Vol] 138 mmol/L 136-145 [facility] Work Phone: Triglyceride [Mass/Vol] 125 mg/dL <199 [facility] Work Phone: Comment on above: The drugs N-Acetylcy steine and Metamizole may falsely depress this assay.Serum Triglycerides Reference Interval Normal <150 mg/dL Borderline high 150 - 199 mg/dL High 200 - 499 mg/dL Very High > or = 500 mg/dL Laboratory - Chemistry and C hemistry - challengeon 12-28-2021 CO2 [Moles/Vol] 24.0 mmol/L 21.0-32.0 [facility] Work Phone: Urea nitrogen/Creatinine [Mass ratio] 30.2 mg/mg 10-20 [facility] Work Phone: No Panel Informationon 12-28 Estimated GFR (MDRD) Amer 66 mL/min >60 [facility] Work Phone: Comment on above: GFR Calc Estimated GFR (MDRD) Non-Af Amer 54 mL/min >60 [facility] Work Phone: Comment on above: Non- GFR Calc Serum or plasma calcium john urement (mass/volume)on 12-28-2021 Calcium [Mass/Vol] 9.2 mg/dL 8.5-10.1 [facility] Work Phone: Serum or plasma cholesterol in HDL measurement (mass/volume)on 12-28-2021 Cholesterol in HDL [Mass/Vol] 49 mg/dL >40 [facility] Work Phone: Comment on above: The drugs N-Acetylcy steine and Metamizole may falsely depress this assay. Reference Range HDL <40 mg/dL Low HDL Cholesterol HDL >or= 60 mg/dL High HDL Cholesterol Serum or plasma cholesterol in VLDL measurement (mass/volume)on 12-28-2021 Cholesterol in VLDL [Mass/Vol] 25 mg/dL 5-40 [facility] Work Phone: Serum or plasma creatinine m easurement (mass/volume)on 12-28-2021 Creatinine [Mass/Vol] 1.06 mg/dL 0.55-1.02 [facility] Work Phone: Comment on above: The validity of the calculated GFR & GFRAA in patients over 70 years has not been determined. Clinical correlation is essential. Serum or plasma low density lipoprotein (LDL) cholesterol measurement (mass/volume)on 12-28-2021 Cholesterol in LDL [Mass/Vol] 65 mg/dL 0-130 [facility] Work Phone: Serum or plasma urea nitroge n measurement (mass/volume)on 12-28-2021 Urea nitrogen [Mass/Vol] 32 mg/dL 7-18 [facility] Work Phone: Thin prep Papanicolaou smear with manual screeningon 12-28-2021 Thin prep Papanicolaou smear with manual screening 10 5-15 [facility] Work Phone: MRI PANC/ESPERANZA WO/W IVCONon [facility] Vital Signs Date Time Vital Sign Value Performing Clinician Faci lity 10-22-2023 14:50-0400 Body mass index (BMI) [Ratio] 29.19 kg/m2 SUDHIR Padilla MD Work Phone: [facility] 10-22-2023 14:50-0400 Body temperature 98.1 [degF] SUDHIR Padilla MD Work Phone: [facility] 10-22-2023 14:50-0400 Body weight 72.4 kg SUDHIR Padilla MD Work Phone: [facility] 10-22-2023 14:50-0400 Diastolic blood pressure 76 mm[Hg] SUDHIR Padilla MD Work Phone: [facility] 10-22-2023 14:50-0400 Heart rate 99 /min SUDHIR Padilla MD Work Phone: [facility] 10-22-2023 14:50-0400 Respiratory rate 18 /min SUDHIR Padilla MD Work Phone: [facility] 10-22-2023 14:50-0400 SaO2% (BldA) [Mass fraction] 99 % SUDHIR Padilla MD Work Phone: [facility] 10-22-2023 14:50-0400 Systolic blood pressure 137 mm[Hg] SUDHIR Padilla MD Work Phone: [facility] 07-02-2023 15:13-0500 Body temperature 98.1 [degF] Dr. Jeremiah Zamudio Work Phone: [facility] 07-02-2023 15:13-0500 Diastolic blood pressure 64 mm[Hg] Dr. Jeremiah Zamudio Work Phone: [facility] 07-02-2023 15:13-0500 Heart rate 80 /min Dr. Jeremiah Zamudio Work Phone: [facility] 07-02-2023 15:13-0500 Respiratory rate 16 /min Dr. Jeremiah Zamudio Work Phone: [facility] 07-02-2023 15:13-0500 SaO2% (BldA) [Mass fraction] 98 % Dr. Jeremiah Zamudio Work Phone: [facility] 07-02-2023 15:13-0500 Systolic blood pressure 122 mm[Hg] Dr. Jeremiah Zamudio Work Phone: [facility] 07-02-2023 13:21-0500 Body height 157.[address] Jeremiah Zamudio Work Phone: [facility] 07-02-2023 13:21-0500 Body weight 72.[address] Jeremiah Zamudio Work Phone: [facility] 07-02-2023 12:53-0500 Body mass index (BMI) [Ratio] 29.2 kg/m2 Dr. Jeremiah Zamudio Work Phone: [facility] 07-02-2023 03:57-0500 Body height 157.[address] Jeremiah Zamudio Work Phone: [facility] 07-02-2023 03:57-0500 Body mass index (BMI) [Ratio] 29.2 kg/m2 Dr. Jeremiah Zamudio Work Phone: [facility] 07-02-2023 03:57-0500 Body weight 72.[address] Jeremiah Zamudio Work Phone: [facility] 07-02-2023 03:34-0500 Diastolic blood pressure 86 mm[Hg] Dr. Jeremiah Zamudio Work Phone: [facility] 07-02-2023 03:34-0500 Heart rate 76 /min Dr. Jeremiah Zamudio Work Phone: [facility] 07-02-2023 03:34-0500 Respiratory rate 16 /min Dr. Jeremiah Zamudio Work Phone: [facility] 07-02-2023 03:34-0500 SaO2% (BldA) [Mass fraction] 98 % Dr. Jeremiah Zamudio Work Phone: [facility] 07-02-2023 03:34-0500 Systolic blood pressure 143 mm[Hg] Dr. Jeremiah Zamudio Work Phone: [facility] 07-02-2023 01:04-0500 Body temperature 98.7 [degF] Dr. Jeremiah Zamudio Work Phone: [facility] 11-06-2022 15:25-0400 Body temperature 97.9 [degF] SUDHIR Padilla MD Work Phone: [facility] 11-06-2022 15:25-0400 Body weight 71.71 kg SUDHIR Padilla MD Work Phone: [facility] 11-06-2022 15:25-0400 Diastolic blood pressure 88 mm[Hg] SUDHIR Padilla MD Work Phone: [facility] 11-06-2022 15:25-0400 Heart rate 107 /min SUDHIR Padilla MD Work Phone: [facility] 11-06-2022 15:25-0400 Respiratory rate 18 /min SUDHIR Padilla MD Work Phone: [facility] 11-06-2022 15:25-0400 SaO2% (BldA) [Mass fraction] 96 % SUDHIR Padilla MD Work Phone: [facility] 11-06-2022 15:25-0400 Systolic blood pressure 137 mm[Hg] SUDHIR Padilla MD Work Phone: [facility] 11-07-2021 12:53-0400 Body temperature 97.3 [degF] SUDHIR Padilla MD Work Phone: [facility] 11-07-2021 12:53-0400 Body weight 72.71 kg SUDHIR Padilla MD Work Phone: [facility] 11-07-2021 12:53-0400 Diastolic blood pressure 78 mm[Hg] SUDHIR Padilla MD Work Phone: [facility] 11-07-2021 12:53-0400 Heart rate 114 /min SUDHIR Padilla MD Work Phone: [facility] 11-07-2021 12:53-0400 Respiratory rate 20 /min SUDHIR Padilal MD Work Phone: [facility] 11-07-2021 12:53-0400 SaO2% (BldA) [Mass fraction] 97 % SUDHIR Padilla MD Work Phone: [facility] 11-07-2021 12:53-0400 Systolic blood pressure 141 mm[Hg] SUDHIR Padilla MD Work Phone: [facility] Encounters Encounter Date Encounter Type Care Provider Facility Start: 11-12-2024 End: 11-12-2024 Telephone encounter R Timoteo Padilla MD Work Phone: General Surgery Comment on above: Patient Question Start: 11-05-2024 End: 11-05-[address] Jeremiah Zamudio MD Work Phone: [facility] Work Phone: Start: 11-05-2024 End: 11-05-[address] Jeremiah Zamudio MD -Outpatient Breast Imaging Work Phone: Start: 11-05-2024 End: 11-05-2024 ambulatory Jeremiah Zamudio Facility:[facility] Start: 11-03-2024 End: 11-03-2024 Orders Only Italia Mohan RN Work Phone: General Surgery Comment on above: IPMN (intraductal pa pillary mucinous neoplasm) (Primary Dx) Start: 10-30-2024 End: 10-30-2024 ambulatory Nolbe PADILLA Facility:[facility] Start: 10-08-2024 ambulatory JEREMIAH ZAMUDIO Facility :[facility] Start: 10-08-2024 End: 10-08-2024 Subsequent hospital visit by physician [facility] (I-Stat/1.5t) Work Phone: Radiology Comment on above: IPMN (intraductal pa pillary mucinous neoplasm) [D49.0] Start: 09-21-2024 End: 09-21-2024 [facility] JEREMIAH ZAMUDIO Facility:[facility] Start: 07-20-2024 End: 07-20-2024 Orders Only Italia Mohan RN Work Phone: General Surgery Comment on above: IPMN (intraductal pa pillary mucinous neoplasm) (Primary Dx); Biliary cyst Start: 07-09-2024 End: 07-09-2024 Orders Only Italia Mohan RN Work Phone: General Surgery Comment on above: Biliary cyst (Primar y Dx) Start: 05-29-2024 End: 05-29-2024 [facility] Jeremiah Zamudio Facility:[facility] Start: 05-28-2024 End: 05-28-2024 [facility] Jeremiah [facility] Facility:[facility] Start: 10-22-2023 End: 10-23-2023 Patient encounter procedure Noble Padilla MD Work Phone: General Surgery Comment on above: IPMN (intraductal pa pillary mucinous neoplasm) (Primary Dx); Ulcerative proctitis with other complication (HCC) Start: 10-16-2023 End: 10-16-2023 Subsequent hospital visit by physician [facility] (I-Stat/1.5t) Work Phone: Radiology Comment on above: 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 Kishan Zamudio Work Phone: [facility] Start: 08-08-2023 End: 08-08-[address] Jeremiah Zamudio Work Phone: [facility] Work Phone: Start: 08-08-2023 End: 08-08-[address] Jeremiah Zamudio Work Phone: [facility]-Cardiovascular Services Work Phone: Start: 07-02-2023 End: 07-02-2023 Evaluation and management of inpatient Dr. Jeremiah Zamudio Work Phone: [facility]-Progressive Care Unit Work Phone: Start: 07-02-2023 Non-patient / Non-visit Dr. Kishan Zamudio Work Phone: [facility] Work Phone: Start: 11-06-2022 End: 11-07-2022 Patient encounter procedure Noble Padilla MD Work Phone: General Surgery Comment on above: IPMN (intraductal pa pillary mucinous neoplasm) (Primary Dx); Ulcerative proctitis with other complication (HCC) Start: 11-01-2022 End: 11-01-2022 ambulatory [facility] Work Phone: Start: 11-01-2022 End: 11-01-2022 Patient encounter procedure [facility]-Outpatient Bone Densitometry Start: 10-09-2022 End: 10-09-2022 Subsequent hospital visit by physician [facility] (I-Stat/1.5t) Work Phone: Radiology Comment on above: 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] Start: 09-18-2022 Orders Only Italia Mohan RN Work Phone: General Surgery Comment on above: IPMN (intraductal pa pillary mucinous neoplasm) (Primary Dx) Patient Update Start: 09-17-2022 End: 09-17-2022 Patient encounter procedure [facility] Start: 09-07-2022 Telephone encounter R Timoteo Padilla MD Work Phone: General Surgery Comment on above: Appointment; Orders Appointment Start: 07-30-2022 Orders Only Italia Mohan RN Work Phone: General Surgery Comment on above: Biliary cyst (Primar y Dx) Start: 07-13-2022 End: 07-13-2022 Patient encounter procedure [facility]-Outpatient Breast Imaging Start: 05-10-2022 End: 05-10-2022 ambulatory [facility] Work Phone: Start: 05-10-2022 End: 05-10-2022 Patient encounter procedure [facility] Start: 12-28-2021 End: 12-28-2021 [facility] Start: 12-20-2021 End: 12-20-2021 Patient encounter procedure [facility] Start: 11-07-2021 End: 11-07-2021 Patient encounter procedure Noble Padilla MD Work Phone: General Surgery Comment on above: IPMN (intraductal pa pillary mucinous neoplasm) (Primary Dx) Start: 10-16-2021 End: 10-16-2021 Subsequent hospital visit by physician [facility] (I-Stat/1.5t) Work Phone: Radiology Comment on above: Pancreatic cyst [K86 .2] Start: 09-06-2021 Orders Only Italia Mohan RN Work Phone: General Surgery Comment on above: Pancreatic cyst Start: 06-13-2011 End: 09-18-2011 Patient encounter status SUDHIR Padilla MD Work Phone: [facility] Work Phone: Procedures Date Procedure Procedure Detail Performing Clinician Start: 11-05-2024 Screening mammography of bilateral breasts Dr. Jeremiah Zamudio MD Work Phone: Start: 10-08-2024 3d rendering w/interp&postproc diff work station Italia Mohan RN Work Phone: Start: 10-08-2024 Mri abdomen w/o & w/contrast material Italia Mohan RN Work Phone: Start: 10-16-2023 Mri abdomen w/o & w/contrast material Italia Mohan RN Work Phone: Start: 07-02-2023 MRI of brain without contrast Dr. Jeremiah Zamudio Work Phone: Start: 07-02-2023 Plain chest X-ray Dr. Jeremiah Zamudio Work Phone: Start: 07-02-2023 CT angiography of head and neck Dr. Jeremiah Zamudio Work Phone: Start: 07-02-2023 CT of head without contrast Dr. Jeremiah Zamudio Work Phone: Start: 11-01-2022 Dual energy X-ray absorptiometry Start: 10-09-2022 Mri abdomen w/o & w/contrast material Italia Mohan RN Work Phone: Start: 07-13-2022 Screening mammography Start: 05-10-2022 Diagnostic radiography of finger Start: 12-20-2021 Radiologic examination of knee Start: 10-16-2021 Mri abdomen w/o & w/contrast material Italia Mohan RN Work Phone: Start: 06-20-2011 Mammography Italia Mohan RN Work Phone: Start: 02-28-2011 Lipid 1996 panel - Serum or Plasma [facility] (I-Stat/1.5t) Work Phone: Start: 11-11-2003 Colonoscopy Italia Mohan RN Work Phone: H/O splenectomy Status post laparoscopic splenectomy Plan of Treatment Date Care Activity Detail Author Start: 2026 RSV Vaccine (1 - 1-d ose 75+ series) RSV Vaccine (1 - 1-dose 75+ series) [facility] Start: 02-08-2025 Influenza vaccination Influenz a Vaccine (Season Ended) [facility] Start: 10-30-2024 End: 10-30-2024 Admission to same day surgery center 10/30/2024 9:15 AM EDT [facility] General Surgery [address] [address] [place] [address] [place] [address] F/U for panc cyst General Surgery Comment on above: F/U for panc cyst Start: 07-20-2024 End: 10-19-2024 Cancer Ag 19-9 [Units/volume] in Serum or Plasma CA 19-9 Lab Routine IPMN (intraductal papillary mucinous neoplasm) Expected: 07/20/2024, Expires: 10/19/2024 [facility] Work Phone: Comment on above: Expected: 07/20/2024 , Expires: 10/19/2024 Start: 06-10-2024 Advance Directive Discussion Advance Directive Discussion [facility] Start: 02-09-2024 Covid-19 Vaccine ( season) Covid-19 Vaccine ( season) [facility] Start: 02-09-2024 Influenza vaccination [facility] Start: 10-22-2023 End: 10-22-2023 Patient encounter procedure 10/22/2023 2:30 PM EDT Office Visit General Surgery [address] [place] [address] [place] [address] [place] [address] F/U for panc cyst General Surgery Comment on above: F/U for panc cyst Start: 10-16-2023 Subsequent hospital visit by physician 10/16/2023 10:40 AM EDT Hospital Encounter Radiology [address] [place], [place] [id number] 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] Radiology Comment on above: 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] Start: 08-14-2023 End: 11-13-2023 Cancer Ag 19-9 [Units/volume] in Serum or Plasma CA 19-9 BLD Lab Routine IPMN (intraductal papillary mucinous neoplasm) Expected: 08/14/2023, Expires: 11/13/2023 [facility] Work Phone: Comment on above: Expected: 08/14/2023 , Expires: 11/13/2023 Start: 07-03-2023 Vital signs measurements [facility] Start: 07-02-2023 Patient discharge [facility] Start: 07-02-2023 Notification of physician [facility] Start: 07-02-2023 Blood chemistry [facility] Start: 07-02-2023 Following clinical pathway protocol [facility] Start: 07-02-2023 Assessment of risk o f venous thromboembolism [facility] Start: 07-02-2023 Cardiac monitoring [facility] Start: 07-02-2023 Catheterization of vein [facility] Start: 07-02-2023 Continuous pulse oximetry [facility] Start: 07-02-2023 Elevation of head of bed [facility] Start: 07-02-2023 Exercises [facility] Start: 07-02-[address] anned interventions [facility] Start: 07-02-2023 Insertion of cathete r into peripheral vein [facility] Start: 07-02-2023 Measuring intake and output [facility] Start: 07-02-2023 Notification of physician [facility] Start: 07-02-2023 Oxygen therapy [facility] Start: 07-02-2023 Providing care accor ding to standard [facility] Start: 07-02-2023 Provision of activit y privileges [facility] Start: 07-02-2023 Referral to service [facility] Start: 07-02-2023 [facility] Start: 07-02-2023 Vital signs measurements [facility] Start: 07-02-2023 MRI of brain without contrast Brain without Contrast [facility] Start: 07-02-2023 Verification routine [facility] Start: 07-02-2023 Admission procedure [facility] Start: 07-02-2023 Oxygen therapy [facility] Start: 07-02-2023 [facility] Start: 07-02-2023 Care regimes management [facility] Start: 06-10-2023 Advance Directive Discussion Advance Directive Discussion [facility] Start: 06-10-2023 Behavioral Health Screening Behavioral Health Screening [facility] Start: 06-10-2023 Depression Assessment Depression Ass essment [facility] Start: 02-08-2023 Covid-19 Vaccine () Covid-19 Vaccine () [facility] Start: 02-08-2023 Influenza vaccination [facility] Start: 11-15-2022 DIABETES SCREEN DIABETES SCREEN [facility] Start: 11-15-2022 Diabetes Screening Diabetes Screenin g [facility] Start: 09-18-2022 End: 11-18-2022 Cancer Ag 19-9 [Units/volume] in Serum or Plasma CA 19-9 BLD Lab Routine IPMN (intraductal papillary mucinous neoplasm) Expected: 09/18/2022, Expires: 11/18/2022 [facility] Work Phone: Comment on above: Expected: 09/18/2022 , Expires: 11/18/2022 Start: 06-10-2022 ADVANCE DIRECTIVE DISCUSSION ADVANCE DIRECTIVE DISCUSSION [facility] Start: 06-10-2022 DEPRESSION ASSESSMENT DEPRESSION ASS ESSMENT [facility] Start: 02-08-2022 Influenza vaccination [facility] Start: 06-10-2021 ADVANCE DIRECTIVE DISCUSSION ADVANCE DIRECTIVE DISCUSSION [facility] Start: 02-08-2021 Influenza vaccination INFLUENZA (#1) [facility] Start: 01-10-2021 COVID-19 VACCINE (4 - Booster for Moderna series) COVID-19 VACCINE (4 - Booster for Moderna series) [facility] Start: 11-09-2020 Pneumococcal Vaccine : 50+ (2 of 2 - PPSV23) Pneumococcal Vaccine: 50+ (2 of 2 - PPSV23) [facility] Start: 11-09-2020 Pneumococcal Vaccine : 65+ (2 - PPSV23 or PCV20) Pneumococcal Vaccine: 65+ (2 - PPSV23 or PCV20) [facility] Start: 11-09-2020 Pneumococcal Vaccine : 65+ (2 of 2 - PPSV23 or PCV20) Pneumococcal Vaccine: 65+ (2 of 2 - PPSV23 or PCV20) [facility] Start: 11-09-2020 PNEUMOCOCCAL: 65+ (2 - PPSV23 if available, else PCV20) PNEUMOCOCCAL: 65+ (2 - PPSV23 if available, else PCV20) [facility] Start: 11-09-2020 PNEUMOCOCCAL: 65+ (2 - PPSV23 or PCV20) PNEUMOCOCCAL: 65+ (2 - PPSV23 or PCV20) [facility] Start: 11-05-2020 COVID-19 VACCINE (4 - Booster for Moderna series) COVID-19 VACCINE (4 - Booster for Moderna series) [facility] Start: 2016 BONE DENSITY BONE DENSITY [facility] Start: 2016 Bone Density Screening Bone Density Screening [facility] Start: 2016 PNEUMOVAX AGE 65 AND OVER WITH 5YR LOOKBACK (#1) PNEUMOVAX AGE 65 AND OVER WITH 5YR LOOKBACK (#1) [facility] Start: 2016 Screening for osteoporosis Bone Density Screening [facility] Start: 02-29-2016 Lipid 1996 panel - S ct or Plasma Lipid Screening [facility] Start: 02-29-2016 Lipid panel Lipid Screening [facility] Start: 02-29-2016 LIPID SCREEN LIPID SCREEN [facility] Start: 06-10-2015 SHINGRIX VACCINE (2 of 3) PURI GRIX VACCINE (2 of 3) [facility] Start: 11-10-2013 Colonoscopy COLONOSCOPY [facility] Start: 11-10-2013 COLORECTAL CANCER SCREENING COLORECTAL CANCER SCREENING [facility] Start: 11-10-2013 Screening for malign ant neoplasm of colon [facility] Start: 06-20-2012 Mammography [facility] Start: 06-20-2012 Screening for malign ant neoplasm of breast Mammogram Screening [facility] Start: 2011 RSV Vaccine (1 - 1-d ose 60+ series) RSV Vaccine (1 - 1-dose 60+ series) [facility] Start: 1996 COLOGUARD (FIT-DNA) COLOGUARD (FIT-D NA) [facility] Start: [address] COLONOGRAPHY [facility] Start: 1996 FECAL OCCULT BLOOD FECAL OCCULT BLOO D [facility] Start: 1996 Screening for malign ant neoplasm of colon [facility] Start: 1996 SIGMOIDOSCOPY SIGMOIDOSCOPY [facility] Start: 1970 Urine microalbumin profile [facility] Start: 1969 ANNUAL PCP TEAM SHIPPING CLERK/ADMIN HONG DISEASE VISIT ANNUAL PCP TEAM CHRONIC DISEASE VISIT [facility] Start: 1969 Anxiety Screening Anxiety Screening [facility] Start: 1969 BP CONTROLLED (<130/80) BP CONTROLLE D (<130/80) [facility] Start: 1969 Depression Screening Depression Scre ening [facility] Start: 1969 HEPATITIS C SCREENING HEPATITIS C SC [facility] Start: 1969 Hepatitis C screening Hepatitis C [facility] Start: 1963 Adult depression screening assessment DEPRESSION SCREENING [facility] Anion gap measurement [facility] Bilirubin measuremen t, urine [facility] BUN/Creatinine ratio [facility] Calcium [Mass/volume ] in Serum or Plasma [facility] Carbon dioxide, tota l [Moles/volume] in Serum or Plasma [facility] Chloride [Moles/volu me] in Serum or Plasma [facility] Cholesterol [Mass/vo lume] in Serum or Plasma [facility] Cholesterol in HDL [Mass/volume] in Serum or Plasma [facility] Cholesterol in LDL [Mass/volume] in Serum or Plasma [facility] Creatinine [Moles/vo lume] in Serum or Plasma [facility] Erythrocyte mean corpuscular volume determination [facility] Glucose [Mass/volume ] in Serum or Plasma [facility] Hematocrit [Volume Fraction] of Blood [facility] Hemoglobin [Mass/vol ume] in Blood [facility] Hemoglobin [Presence ] in Urine [facility] Hemoglobin A1c/Hemoglobin.total in Blood [facility] Leukocytes [#/volume ] in Blood [facility] Mean corpuscular hemoglobin concentration determination [facility] Mean corpuscular hemoglobin determination [facility] Measurement of keton es in urine using dipstick [facility] Measurement of renal function [facility] Microscopic urinalysis [facility] End: 08-08-2025 MR Biliary ducts and Pancreatic duct WO and W contrast IV MRI PANC/ESPERANZA WO/W IVCON Radiology Routine Biliary cyst 1 Occurrences starting 07/09/2024 until 08/08/2025 [facility] Work Phone: Comment on above: 1 Occurrences starti ng 07/09/2024 until 08/08/2025 End: 08-19-2025 MR Biliary ducts and Pancreatic duct WO and W contrast IV MRI PANC/ESPERANZA WO/W IVCON Radiology Routine IPMN (intraductal papillary mucinous neoplasm) Biliary cyst 1 Occurrences starting 07/20/2024 until 08/19/2025 [facility] Comment on above: 1 Occurrences starti ng 07/20/2024 until 08/19/2025 End: 08-08-2025 MR Unspecified body region 3D post processing MRI 3D POST PROCESSING Radiology Routine Biliary cyst 1 Occurrences starting 07/09/2024 until 08/08/2025 [facility] Comment on above: 1 Occurrences starti ng 07/09/2024 until 08/08/2025 End: 08-19-2025 MR Unspecified body region 3D post processing MRI 3D POST PROCESSING Radiology Routine IPMN (intraductal papillary mucinous neoplasm) 1 Occurrences starting 07/20/2024 until 08/19/2025 [facility] Comment on above: 1 Occurrences starti ng 07/20/2024 until 08/19/2025 End: 10-06-2022 Mri abdomen w/o & w/contrast material MRI PANC/ESPERANZA WO/W IVCON Radiology Routine Pancreatic cyst 1 Occurrences starting 09/06/2021 until 10/06/2022 [facility] Work Phone: Comment on above: 1 Occurrences starti ng 09/06/2021 until 10/06/2022 End: 08-29-2023 Mri abdomen w/o & w/contrast material MRI PANC/ESPERANZA WO/W IVCON Radiology Routine Biliary cyst 1 Occurrences starting 07/30/2022 until 08/29/2023 [facility] Work Phone: Comment on above: 1 Occurrences starti ng 07/30/2022 until 08/29/2023 Neutrophil count [facility] Neutrophil percent differential count [facility] Organism count, microscopic method [facility] PANC ELASTASE, FECAL PANC ELASTA SE, FECAL Lab Routine IPMN (intraductal papillary mucinous neoplasm) Ordered: 11/03/2024 [facility] Work Phone: Comment on above: Ordered: 11/03/2024 Patient Education TIA Dc [facility] Work Phone: Patient referral [facility] Work Phone: pH of Urine [facility] Platelets [#/volume] in Blood [facility] Potassium [Moles/vol ume] in Serum or Plasma [facility] Red blood cell count [facility] Red cell distributio n width determination [facility] Sodium [Moles/volume ] in Serum or Plasma [facility] Specific gravity of Urine [facility] Triglycerides measurement [facility] Urea nitrogen [Mass/volume] in Serum or Plasma [facility] Urine dipstick for glucose [facility] Urine dipstick for leukocyte esterase [facility] Urine dipstick for nitrite [facility] Urine dipstick for protein [facility] Urine examination [facility] Urine microscopy: epithelial cells [facility] Urine microscopy: re d cells [facility] Urobilinogen [Presen ce] in Urine [facility] VLDL cholesterol measurement [facility] White blood cell count [facility] Immunizations Immunization Date Immunization Notes Care Provider Fa cility 09-08-2020 Covid (Moderna) [facility] 08-11-2020 [facility] 04-14-2020 influenza virus vacc ine, unspecified formulation [facility]ri (I-Stat/1.5t) Work Phone: [facility] 11-10-2019 haemophilus influenz ae type b vaccine, PRP-T conjugate Italia Mohan RN Work Phone: [facility] Work Phone: 11-10-2019 meningococcal oligosaccharide (groups A, C, Y and W-135) diphtheria toxoid conjugate vaccine (MCV4O) Italia Mohan RN Work Phone: [facility] Work Phone: 11-10-2019 pneumococcal conjuga te vaccine, 13 valent Italia Ali RN Work Phone: [facility] Work Phone: 04-15-2015 zoster vaccine, live Italia kemp RN Work Phone: [facility] 02-25-2014 influenza, seasonal, injectable Italia Mohan RN Work Phone: [facility] 02-08-2013 influenza, seasonal, injectable Italia Mohan RN Work Phone: [facility] Payers Date Payer Category Payer Self-pay [id number] 2022 Medicare (Managed Care) [employer] [id number] 2022 Private Health Insurance [id number] 2021 Medicare MMO MEDICARE MMO MEDADVANTAGE O [id number] 2021-Present [phone] [address] [place] [address] [facility] [id number] 2021 Medicare [id number] 2018 Unknown MMO MMO [employer] PLUS [id number] 2018-Present [phone] [address] [place] [address] [facility] [id number] 2014 Unknown [id number] Medicare [id number] Unknown [id number] Unknown [id number] Unknown [id number] Social History Date Type Detail Facility Start: 08-03-2010 End: 07-02-2023 Tobacco smoking status NHIS Never smoked tobacco [facility] Work Phone: Start: 08-03-2010 Tobacco use and exposure Smoke less tobacco non-user [facility] Work Phone: Start: 12-01-2019 End: 04-17-2023 Alcohol intake Current drinker of alcohol (finding) [facility] Start: 06-13-2011 History SDOH Alcohol Comment 1-2 drinks a week [facility] Start: 11-13-2019 History SDOH Financial 4 [facility] Start: 11-13-2019 History SDOH Food Worry 1 [facility] Start: 11-13-2019 History SDOH Transport Med 2 [facility] Start: 1950 Sex Assigned At Not on file [facility] Start: 08-27-2021 End: 11-07-2021 Exposure to SARS-CoV-2 (event) Not sure [facility] Start: 01-16-2021 End: 07-02-2023 Tobacco smoking status NHIS Unknown if ever smoked [facility] Start: 01-22-2015 None [facility] Start: 01-22-2015 With Family [facility] Start: 01-22-2015 Non-smoker [facility] Start: 1950 Sex Assigned At Female W [facility] Start: 11-07-2021 End: 11-06-2022 History of Social function [facility] Work Phone: Start: 11-07-2021 End: 11-06-2022 Tobacco use panel [facility] Work Phone: How hard is it for y ou to pay for the very basics like food, housing, medical care, and heating Not very hard [facility] Work Phone: (I/We) worried wheth er (my/our) food would run out before (I/we) got money to buy more. Never true [facility] Work Phone: In the past 12 month s, has lack of transportation kept you from medical appointments or from getting medications? No [facility] Work Phone: Goals Date Patient Goal Desired Activity /State Functional Status Date Assessment Result Facility 07-02-2023 Functional status Activity [facility] Work Phone: 11-17-2019 Are you deaf, or do you have serious difficulty hearing No 11/17/2019 11:01 AM EDT Amanda Mahoney (Rn)(Hist), RN No [facility] 11-17-2019 Are you blind, or do you have serious difficulty seeing, even when wearing glasses No 11/17/2019 11:01 AM EDAmanda Medeiros (Rn)(Hist), RN No [facility] 11-17-2019 Do you have serious difficulty walking or climbing stairs No 11/17/2019 11:01 AM EDT Amanda Mahoney (Rn)(Hist), RN No [facility] 11-17-2019 Do you have difficul ty dressing or bathing No 11/17/2019 11:01 AM EDT Amanda Mahoney (Rn)(Hist), RN No [facility] 11-17-2019 Because of a physica l, mental, or emotional condition, do you have difficulty doing errands alone such as visiting a physician's office or shopping No 11/17/2019 11:01 AM EDAmanda MedeirosRn)(Hist), RN No [facility] Mental Status Date Assessment Result Facility 07-02-2023 Cognitive function Voice/Name [facility] Work Phone: 07-02-2023 Cognitive function Voice/Name [facility] Work Phone: 11-17-2019 Because of a physica l, mental, or emotional condition, do you have serious difficulty concentrating, remembering, or making decisions No 11/17/2019 11:01 AM EDT Amanda Mahoney (Rn)(Hist), RN No [facility] Clinical Notes 06-13-2011 to 11-12-2024 Telephone Encounter - Italia Mohan RN - 11/12/2024 4:19 PM EDTTelephone Encounter - Italia Mohan RN - 11/12/2024 4:19 PM EDTTelephone Encounter - Sharri Thomson - 11/12/2024 1:32 PM EDT Note Date & Type Note Facility 11-12-2024 Telephone encount er Note Updated patient she can get specimen kit at any [facility] facility [facility] 11-12-2024 Miscellaneous Notes Formattin g of this note might be different from the original. Updated patient she can get specimen kit at any [facility] facility Patient called she has been expecting a call to discuss her getting a stool sample kit. She is asking can she get a call from Italia. Best contact is listed below. [phone] Sharri documented in this encounter [facility] 11-12-2024 Telephone encount er Note Patient called she has been expecting a call to discuss her getting a stool sample kit. She is asking can she get a call from Italia. Best contact is listed below. [phone] Sharri [facility] 10-30-2024 Note HNO ID: [id number] Author: Noble PADILLA MD Service: ? 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 5 years post lap resection. reports intermittent diarrhea, likely due to fatty meals. wt loss of 6#. diabetes stable. MRI stable small cysts in remnant. CA 19-9: 5 stable overall. will check fecal elastase for steatorrhea. explained how to use creon appropriately if needs it. follow up one year. Vimal Padilla MD [facility] 10-08-2024 History of Presen t illness Narrative Radiology Service Progress Note PATIENT NAME: Noble Calderon DATE OF SERVICE: October 08, 2024 TIME: 1:56 PM PATIENT IDENTITY VERIFICATION COMPLETED USING TWO (2) IDENTIFIERS: Name and Date of confirmed by patient verbally. FALL SCREENING: Has the patient had 2 falls in the last year or 1 fall with injury or currently using an Ambulatory Assistive Device (Walker, Cane, Wheelchair, Crutches, etc.)? No PATIENT GENDER DATA: Assigned female at . status: : No status: NO. PATIENT RELEVANT IMPLANT DATA REVIEWED: Yes PATIENT PRESENTS WITH AN IMPLANTABLE OR ATTACHED BUSINESS BANKING MANAGER: No RADIOLOGY DEPARTMENT: MR; Exam(s) Completed: Body: Pancreas/Biliary. Lavender Administered: No PERIPHERAL IV DATA: Not applicable SIGNED BY: RT Danii(R) October 08, 2024 1:56 PM documented in this encounter [facility] 10-08-2024 Note HNO ID: [id number] Author: SORAYA NICOLE RT(Noble) Service: ? Author Type: Technologist Type: Progress Notes Filed: 10/08/2024 13:57 Note Text: Radiology Service Progress Note PATIENT NAME: Noble Calderon DATE OF SERVICE: October 08, 2024 TIME: 1:56 PM PATIENT IDENTITY VERIFICATION COMPLETED USING TWO (2) IDENTIFIERS: Name and Date of confirmed by patient verbally. FALL SCREENING: Has the patient had 2 falls in the last year or 1 fall with injury or currently using an Ambulatory Assistive Device (Walker, Cane, Wheelchair, Crutches, etc.)? No PATIENT GENDER DATA: Assigned female at . status: : No status: NO. PATIENT RELEVANT IMPLANT DATA REVIEWED: Yes PATIENT PRESENTS WITH AN IMPLANTABLE OR ATTACHED BUSINESS BANKING MANAGER: No RADIOLOGY DEPARTMENT: MR; Exam(s) Completed: Body: Pancreas/Biliary. Lavender Administered: No PERIPHERAL IV DATA: Not applicable SIGNED BY: Soraya Nicole, RT(R) October 08, 2024 1:56 PM [facility] 10-22-2023 History of Presen t illness Narrative [facility] STAFF PHYSICIAN NOTE OF PERSONAL INVOLVEMENT IN CARE I have reviewed the progress note obtained and documented by the resident and I personally participated in the edward components. I have discussed the case and management of the patient's care. The following comments revise or confirm relevant edward components of the note. 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 has some reflux and distension. MRI of remnant is fine with small SB-IPMN. PLAN: see local GI. follow up MRI one year. Vimal Padilla MD Date of Service: October 22, 2023 Time of Service: 3:15 PM Pancreatic Cyst Follow Up PATIENT NAME: Noble Calderon DATE of SERVICE: 10/22/2023 TIME of SERVICE: 2:41 PM HPI Noble Calderon is a 73 year old, female who presents with Mixed type IPMN. Patient underwent lap distal panc/spleen in 2019 for mixed-type with HGD. Now presents for follow up of her remnant- has known SB-IPMN. Unchanged on imaging this year. Has several GI complaints, acid reflux and intermittent diarrhea triggered by particular foods (spicy, fatty). Has not been seen by a GI doc other than c-scopes. - Surgical interventions: Yes, Distal Pancreatectomy - 11/12/2019, Pathology Diagnosis: Mixed-type IPMN with HGD Recent episode of pancreatitis since last office visit?: No Patient is currently smoking: No Patient is currently using alcohol: No Current imaging: MRI: 10/16/2023 LOCATION: Head: Yes, largest size: 9 mm. Total number of cysts: Multiple Body/Tail: No SEPTATIONS : No THICK WALLED : No CENTRAL CALCIFICATIONS: No PERIPHERAL CALCIFICATIONS : No MASS COMPONENT: No MURAL NODULE: No COMMUNICATION WITH MPD: No MPD: Head: <5 mm Body/Tail: <5 mm EUS: No REVIEW OF SYSTEMS GENERAL: No weight loss, malaise or fevers GI: see HPI PHYSICAL EXAM General Appearance: Well appearing, alert, in no acute distress, well-hydrated, well nourished.. Lungs: breathing comfortably on RA. Heart: regular rate, warm and well perfused. Abdomen: Normal abdominal exam, soft, non tender. 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 PLAN I reviewed MRI and blood work results in detail with Noble Calderon and the recommendation to repeat MRI in 1 year and see her local GI doctor for her other GI complaints, as they do not seem related to her SB-IPMNs, future orders placed in [facility]. I discussed pancreatic cysts in detail, and the potential need to continue to follow this process with surveillance imaging to rule out any growth of change of the cyst(s)/pancreatic duct/pancreas. Samantha Arredondo MD 2:41 PM 10/22/2023 documented in this encounter [facility] 10-22-2023 Nurse Note Additional intake questions: Has the patient had fever, nausea, vomiting, diarrhea, constipation, fatigue for > 1 week? No Does the patient have a decreased appetite? No Does patient want to see a Push Button Switch Assembler? No Does patient have any new or increased numbness or tingling of extremities? No Is patient interested in fertility information? No Does patient need any prescription refills? No Does patient have an advanced directive in place? Yes, copies are in Epic [facility] 10-22-2023 Nurse Note Additional intake questions: Has the patient had fever, nausea, vomiting, diarrhea, constipation, fatigue for > 1 week? No Does the patient have a decreased appetite? No Does patient want to see a Push Button Switch Assembler? No Does patient have any new or increased numbness or tingling of extremities? No Is patient interested in fertility information? No Does patient need any prescription refills? No Does patient have an advanced directive in place? Yes, copies are in [place] documented in this encounter [facility] 10-16-2023 History of Presen t illness Narrative Radiology Service Progress Note DATE OF SERVICE: October 16, 2023 TIME: 10:47 AM PATIENT IDENTITY VERIFICATION COMPLETED USING TWO (2) STANDARD IDENTIFIERS: Name and Date of confirmed by patient verbally. FALL SCREENING: Has the patient had 2 falls in the last year or 1 fall with injury or currently using an Ambulatory Assistive Device (Walker, Cane, Wheelchair, Crutches, etc.)? No PATIENT GENDER DATA: Female. status: : No status: NO. PATIENT RELEVANT IMPLANT DATA REVIEWED: Yes PATIENT PRESENTS WITH AN IMPLANTABLE OR ATTACHED BUSINESS BANKING MANAGER: No ALLERGIES: Reviewed and unchanged CONTRAST ALLERGY: NO. EXAM: MRI - CONTRAST TYPE: GROUP II PERIPHERAL IV DATA: Ambulatory: A peripheral IV was started in the Left antecubital site with a Angio cath: 22 gauge. RADIOLOGY DEPARTMENT: MR; Exam(s) Completed: Body: Pancreas/Biliary SIGNATURE: RT Nilda(R) PATIENT NAME: Noble Calderon DATE: October 16, 2023 TIME: 10:47 AM documented in this encounter [facility] 10-15-2023 Telephone encount er Note Lab ordered release [facility] 10-15-2023 Miscellaneous Notes Formattin g of this note might be different from the original. Lab ordered release Pt is calling to get her lab results released to [employer]. Contact info: [phone] documented in this encounter [facility] 10-15-2023 Telephone encount er Note Pt is calling to get her lab results released to [employer]. Contact info: [phone] [facility] 07-02-2023 Discharge summary Note Date/Time July 02, 2023 2:25am [facility] Medical Records Department [address] [place] [id number] Emergency Department Summary 07/02/23 MR#: [id number] Acct: [id number] Name: SHILPA CALDERON Rep #:[id number] : 1950 73 From: Dain Wheeler DO PCP: Dr. Jeremiah Zamudio MD Status:ADM I N Location: [place] [address] HPI History of Present Illness Chief Complaint: Stroke Alert Informant: patient and spouse/S.O. Narrative Narrative: Patient is a 73-year-old female with past medical history of hypertension [id number] diabetes and gastritis. She states 2 to 3 hours prior to arrival she began to feel numbness and tingling to the right side of her face aswell as noted blurry/change of vision. She states she was dizzy with this. She states she tried to rest and see if the symptoms would resolve but they would not do so and secondary to this the patient presents to the hospital for evaluation PFSH PFSH Medical History (Updated 07/02/23 @ 03:[address] 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 Dermatitis Diabetes mellitus Hypertension Pigmented purpuric dermatosis Thrombocytosis Home Medications clonazepam 0.5 mg disintegrating tablet 0.5 mg PO QHS 01/22/15 [History Last Taken Unknown] trazodone 50 mg tablet 50 mg PO QHS 01/22/15 [History Last Taken Unknown] amlodipine 5 mg tablet 5 mg PO DAILY 09/20/20 [History Last Taken Unknown] fluoxetine 20 mg capsule 20 mg PO DAILY 09/20/20 [History Last Taken Unknown] losartan 100 mg tablet 100 mg PO DAILY 09/20/20 [History Last Taken Unknown] cranberry concentrate-ascorbic acid 140 mg-100 mg capsule 1 tablet PO DAILY 09/22/20 [History Last Taken Unknown] aspirin 81 mg tablet,delayed release (Adult Aspirin Regimen) 81 mg PO DAILY 07/02/23 [History Last Taken Unknown] latanoprost 0.005 % eye drops 1 drp ophthalmic (eye) DAILY GLAUCOMA 07/02/23 [History Last Taken Unknown] metformin 500 mg tablet 500 mg PO BID 07/02/23 [History Last Taken Unknown] metronidazole 0.75 % topical cream 1 applic topical DAILY 07/02/23 [History Last Taken Unknown] pantoprazole 40 mg tablet,delayed release 40 mg PO DAILY 07/02/23 [History Last Taken Unknown] Allergy/AdvReac Type Severity Reaction Status Date / Time metoprolol [From Toprol XL] AdvReac Severe Other Verified 07/02/23 01:14 nitrofurantoin AdvReac Intermediate Other Verified 07/02/23 01:14 [From Macrobid] Penicillins AdvReac Intermediate Hives Verified 07/02/23 01:14 Family History Father Myocardial infarction Mother Lung cancer Brother Diabetes Surgical History History of splenectomy Social History Smoking Status: Never smoker ROS ROS ED Constitutional Constitutional ED: Denies chills or fever(s) Eyes Eyes: Reports blurry vision and change in vision ENT ENT ED: Denies sore throat Cardiovascular Cardiovascular: Denies chest pain, palpitations or racing heartbeat Respiratory/Chest Respiratory/Chest: Denies cough or dyspnea Gastrointestinal Gastrointestinal: Denies abdominal pain, diarrhea, nausea or vomiting Genitourinary Genitourinary ED: Denies dysuria Musculoskeletal Musculoskeletal: Denies myalgias Integumentary Denies rash Neurologic Neurologic: Reports paresthesias, weakness and other Details: Positive dizziness; Denies headache(s) Hematologic/Lymphatic Hematologic/Lymphatic: Denies easy bleeding or easy bruising EXAM Physical Exam Const Vital Signs: 07/02/23 01:04 07/02/23 01:15 07/02/23 01:27 Temperature 98.7 F Temperature Source Temporal Pulse Rate 112 H 106 H Respiratory Rate 12 17 Blood Pressure 175/89 H 167/71 H Blood Pressure Mean 117 103 Pulse Ox 98 96 Oxygen Delivery Method Room Air Room Air Room Air 07/02/23 01:42 07/02/23 02:12 07/02/23 02:30 Temperature Temperature Source Pulse Rate 94 94 92 Respiratory Rate 17 17 12 Blood Pressure 155/84 H 168/67 H 164/81 H Blood Pressure Mean 107 100 108 Pulse Ox 96 97 97 Oxygen Delivery Method Room Air Room Air Room Air Positive well nourished, well developed and obese General Appearance ED: well developed; Negative for pallor Nutritional Appearance: obese HEENT Reports moist mucous membranes HEENT Narrative: Normocephalic atraumatic No signs of infection noted in the posterior pharynx Eyes PERRL and EOMs intact bilaterally General Eye ED: Negative for scleral icterus Neck supple Neck Narrative: No nuchal rigidity or meningeal signs Chest Wall palpation of chest normal Resp normal respiratory effort and clear to auscultation bilaterally Cardio regular rhythm Rate: tachycardic and other Other Details: Tachycardic rate with regular rhythm No murmurs rubs or gallops noted Radial and carotid pulses are equal and symmetric GI normal to inspection, nondistended, normoactive bowel sounds, non-tender, non-distended and no masses Auscultation: normoactive bowel sounds Palpation: soft Extremity normal to inspection Neuro oriented x3 Neuro Narrative: Patient is awake alert and oriented to person place and time. There is slight right-sided facial droop noted and decreased sensation with palpation of the right face compared to left. Secondary to the slight facial droop and paresthesias she received an NIH stroke scale score of 2. Otherwise there is nodysmetria dysarthria pronator drift or truncal ataxia. Sensorium / Orientation: alert Motor Exam: strength 5/5 throughout Psych mental status grossly normal Skin no rashes or lesions noted General Skin Exam: Negative for jaundice or pallor MDM MDM MDM Narrative Medical decision making narrative: Patient presented to the ER mildly hypertensive and tachycardic. There was slight right-sided facial droop and reported paresthesias and secondary to this a stroke alert was activated. Patient received a noncontrast head CT as well asa CTA of the head and neck secondary to her stroke scale score of 2. Differential diagnosis is for ischemic versus hemorrhagic stroke versus large vessel occlusion versus TIA. Noncontrast and CTA revealed no acute finding. The patient was also evaluated by the stroke neurologist. They agree that as her stroke scale score is low at a value of 2 there is no need for TNK. They recommend that with negative imaging studies and a low stroke scale score patient be kept at this facility for continued stroke workup. The patient's labs showed a white blood cell count of 18.6 but otherwise no clinically significant findings. She reported being treated for UTI a few weeks ago but denied any dysuria at this time and she also stated she had mild congestion and cough but her chest x-ray revealed no obvious infiltrate. Therefore UA will be added to today's workup. On reevaluation her stroke scale score remains at 2 and as she does have risk factors such as age hypertension and diabetes medicinewas contacted and they do agree to accept the patient at this time to complete her stroke workup. At this time as there is also no obvious source of infectiondespite elevated white count antibiotics will be held History & Record Review Discussion w/independent historian: Patient and Significant other Lab Data Attestation: I reviewed the patient's lab results. Labs: Laboratory Results - last 24 hr 07/02/23 07/02/23 01:07 01:10 WBC 18.6 H RBC 4.10 L Hgb 12.0 Hct 36.9 L MCV 90.0 MCH 29.3 MCHC 32.5 RDW Std Deviation 40.6 RDW Coeff of Katlyn 12.5 Plt Count 598 H MPV 9.2 Immature Gran % (Auto) 0.300 Neut % (Auto) 42.5 L Lymph % (Auto) 46.7 H [place]icking % (Auto) 8.4 Eos % (Auto) 1.3 Baso % (Auto) 0.8 Absolute Neuts (auto) 7.9 H Absolute Lymphs (auto) 8.70 H Nucleated RBC % 0 Differential Comment SCANNED Diff Path Review October PT 12.4 INR 0.9 APTT 23.2 L Sodium 140 Potassium 3.9 Chloride 107 Carbon Dioxide 26.0 Anion Gap 7 BUN 19 H Creatinine 1.10 H Estim Creat Clear Calc 43.83 Est GFR (MDRD) Af Amer 63 Est GFR (MDRD) Non-Af 52 L BUN/Creatinine Ratio 17.3 Glucose 107 H Calcium 9.6 Magnesium 2.2 POC Glucose 89 Radiography Diagnostic Testing: Clinical Impression(s) from Imaging Studies Brain CT 07/02/23 01:12 IMPRESSION: No acute intracranial abnormality. ASSESSMENT: ASPECTS ([place] Stroke Program Early CT Score) is 10. Electronically Signed: Johnny Christianson MD at 1:37 EST Reading Location ID and State: [place] / [place] Tel , Service support , ADDENDUM: 07/02/23 0147 IMPRESSION: No acute intracranial abnormality. ASSESSMENT: ASPECTS ([place] Stroke Program Early CT Score) is 10. N.B. : The above Results were Read Back by Johnny Christianson MD to Dain Wheeler DO, and understanding confirmed on 07/02/2023 01:40:05 (ET). Electronically Signed: Johnny Christianson MD at 1:37 EST Reading Location ID and State: [employer] / [place] Tel , Service support , Head/Neck CTA 07/02/23 01:12 IMPRESSION: Negative CTA carotid and CTA brain. Electronically Signed: Johnny Christianson MD at 1:45 EST , ADDENDUM: 07/02/23 0155 IMPRESSION: Negative CTA carotid and CTA brain. N.B. : The above Results were Read Back by Johnny Christianson MD to Dain Wheeler DO, and understanding confirmed on 07/02/2023 01:48:15 (ET). Electronically Signed: Johnny Christianson MD at 1:45 EST , Chest X-Ray 07/02/23 01:22 IMPRESSION: No acute cardiopulmonary abnormality. Electronically Signed: Johnny Christianson MD at 1:54 EST , Chest x-ray as interpreted by the emergency medicine physician reveals no acute infiltrate pneumothorax or pleural effusion Management Discussion w/another healthcare provider: Hospitalist, Lead Php Developer and Radiologist Critical Care Time Critical Care Time: Yes Critical care time (excluding procedures): Discussing w/Patient &/or Family/CareGiver, Discussing w/Consultants and - (Critical care time of 33 minutes) Discharge Plan Dx/Rx/DC Orders Clinical Impression: CVA (cerebral vascular accident), Non-insulin dependent diabetes mellitus, Hypertension Disposition Disposition: Acute Care Hospital [facility] What to do if you have Problems For any increased pain, shortness of breath, bleeding, nausea or vomiting, chestpain, or any unexpected problems, contact your Primary Care Provider. Call [facility] ([phone]) or report to the closest Emergency Room. Call 911 if necessary. 07/02/23 033 <Electronically signed by Dain Wheeler DO> Cosigner Signature (if applicable): CC: Dr. Jeremiah Zamudio MD ~ Signed [facility] Work Phone: 1(488) 444-587301-23-2024 History and physical note Author Jeremiah Zamudio [facility] July 02, 2023 2:43am Note Date/Time July 02, 2023 2 :43am [facility] Medical Records Department [address] [place] [id number] History & Physical Exam 07/02/23 0233 MR#: [id number] Acct: [id number] Name: SHILPA CALDERON Rep #:[id number] : 1950 73 From: Jeremiah Zamudio MD PCP: Dr. Jeremiah Zamudio MD Status:REG E R Location: ED HPI - General General Date of Admission: 07/02/23 Date of Service: 07/02/23 Chief Complaint: Right facial numbness and blurry vision HPI Narrative SHILPA CALDERON, is a 73 F who presents to the emergency department with chief complaint of right facial numbness and blurry vision. Patient has significant past medical history of diabetes, hypertension and history of partial pancreatectomy and splenectomy in 2019. Patient states she was watching television and having trouble with vision in her right eye and noticed her face was numb and she felt a funny feeling in her mouth. She also complained of feeling dizzy. Patient denies chest pain, shortness of breath and/or fevers or chills and no dysuria at this time. Initial CT scan of the head and neck were negative and chest x-ray was also negative. White blood cell count was markedlyelevated at 18,000 with a left shift but no identified source of infection at this time. Patient is afebrile and without symptoms therefore will watchfully wait to see if infection declares itself. Since her arrival she is feeling lessdizzy her mouth feels back to normal and her vision is normal at this time, however, she does have some residual numbness in her right face. She will be admitted to progressive care unit with neurochecks and order MRI head for the morning. [facility] Medical History (Updated 07/02/23 @ 02:[address] 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 Dermatitis Diabetes mellitus Hypertension Pigmented purpuric dermatosis Thrombocytosis Home Medications clonazepam 0.5 mg disintegrating tablet 0.5 mg PO QHS 01/22/15 [History Last Taken Unknown] trazodone 50 mg tablet 50 mg PO QHS 01/22/15 [History Last Taken Unknown] amlodipine 5 mg tablet 5 mg PO DAILY 09/20/20 [History Last Taken Unknown] fluoxetine 20 mg capsule 20 mg PO DAILY 09/20/20 [History Last Taken Unknown] losartan 100 mg tablet 100 mg PO DAILY 09/20/20 [History Last Taken Unknown] cranberry concentrate-ascorbic acid 140 mg-100 mg capsule 1 tablet PO DAILY 09/22/20 [History Last Taken Unknown] aspirin 81 mg tablet,delayed release (Adult Aspirin Regimen) 81 mg PO DAILY 07/02/23 [History Last Taken Unknown] latanoprost 0.005 % eye drops 1 drp ophthalmic (eye) DAILY GLAUCOMA 07/02/23 [History Last Taken Unknown] metformin 500 mg tablet 500 mg PO BID 07/02/23 [History Last Taken Unknown] metronidazole 0.75 % topical cream 1 applic topical DAILY 07/02/23 [History Last Taken Unknown] pantoprazole 40 mg tablet,delayed release 40 mg PO DAILY 07/02/23 [History Last Taken Unknown] Allergy/AdvReac Type Severity Reaction Status Date / Time metoprolol [From Toprol XL] AdvReac Severe Other Verified 07/02/23 01:14 nitrofurantoin AdvReac Intermediate Other Verified 07/02/23 01:14 [From Macrobid] Penicillins AdvReac Intermediate Hives Verified 07/02/23 01:14 Family History Father Myocardial infarction Mother Lung cancer Brother Diabetes Surgical History History of splenectomy Social History Smoking Status: Never smoker ROS Constitutional Constitutional: Denies chills or fever(s) Eyes Eyes: Reports blurry vision and change in vision right ENT HEENT: Denies abnormal hearing, dysphagia, headache(s), hearing loss or loss taste/smell Cardiovascular Cardiovascular: Denies chest pain Respiratory/Chest Respiratory/Chest: Denies shortness of breath at rest Gastrointestinal Gastrointestinal: Denies abdominal pain Genitourinary Genitourinary: Denies dysuria or urinary frequency Musculoskeletal Musculoskeletal: Denies back pain Integumentary Integumentary: Denies dry skin Neurologic Neurologic: Reports dizziness, numbness and tingling; Denies abnormal gait, abnormal speech, tremor(s) or weakness Psychiatric Psychiatric: Reports anxiety Endocrine Endocrinology: Denies change in body appearance Hematologic/Lymphatic Hematologic/Lymphatic: Denies anemia Vital Signs Vital Signs Vital Signs: 07/02/23 01:04 07/02/23 01:15 01/23/24 01:27 Temperature 98.7 F Temperature Source Temporal Pulse Rate 112 H 106 H Respiratory Rate 12 17 Blood Pressure 175/89 H 167/71 H Blood Pressure Mean 117 103 Pulse Ox 98 96 Oxygen Delivery Method Room Air Room Air Room Air 07/02/23 01:42 07/02/23 02:12 Temperature Temperature Source Pulse Rate 94 94 Respiratory Rate 17 17 Blood Pressure 155/84 H 168/67 H Blood Pressure Mean 107 100 Pulse Ox 96 97 Oxygen Delivery Method Room Air Room Air Weight Weight: 165 lb 5.547 oz Body Mass Index (BMI) 30.2 Physical Exam Const oriented x3 General Appearance: cooperative and well developed HEENT normocephalic and head/scalp atraumatic Eyes PERRL and EOMs intact bilaterally Neck no lymphadenopathy and supple Lymph Lymphatic: no lymphadenopathy noted Resp normal respiratory effort, normal air movement and clear to auscultation bilaterally Cardio regular rate, regular rhythm, S1 normal heart sound and S2 normal heart sound GI normal to inspection, nondistended, normoactive bowel sounds Extremity normal capillary refill Skin General Skin Exam: no breakdown Neuro CN's II-XII intact bilaterally and no focal motor deficits Speech: speech normal Motor Exam: strength 5/5 throughout Psych thought process normal, cooperative and affect normal Results Lab / Micro Data 07/02/23 01:10 07/02/23 01:10 Labs: Laboratory Results - last 24 hr 07/02/23 01:07: POC Glucose 89 07/02/23 01:10: WBC 18.6 H, RBC 4.10 L, Hgb 12.0, Hct 36.9 L, MCV 90.0, MCH 29.3, MCHC 32.5, RDW Std Deviation 40.6, RDW Coeff of Katlyn 12.5, Plt Count 598 H,MPV 9.2, Immature Gran % (Auto) 0.300, Neut % (Auto) 42.5 L, Lymph % (Auto) 46.7H, [place] % (Auto) 8.4, Eos % (Auto) 1.3, Baso % (Auto) 0.8, Absolute Neuts (auto)7.9 H, Absolute Lymphs (auto) 8.70 H, Nucleated RBC % 0, Differential Comment SCANNED, Diff Path Review October, PT 12.4, INR 0.9, APTT 23.2 L, Sodium 140, Potassium 3.9, Chloride 107, Carbon Dioxide 26.0, Anion Gap 7, BUN 19 H, Creatinine 1.10 H, Estim Creat Clear Calc 43.83, Est GFR (MDRD) Af Amer 63, Est GFR (MDRD) Non-Af 52 L, BUN/Creatinine Ratio 17.3, Glucose 107 H, Calcium 9.6, Magnesium 2.2 Imagaing Radiology Impression Brain CT 07/02/23 01:12 IMPRESSION: No acute intracranial abnormality. ASSESSMENT: ASPECTS ([place] Stroke Program Early CT Score) is 10. Electronically Signed: Johnny Christianson MD at 1:37 EST , ADDENDUM: 07/02/23 0147 IMPRESSION: No acute intracranial abnormality. ASSESSMENT: ASPECTS ([place] Stroke Program Early CT Score) is 10. N.B. : The above Results were Read Back by Johnny Christianson MD to Dain Wheeler DO, and understanding confirmed on 07/02/2023 01:40:05 (ET). Electronically Signed: Johnny Christianson MD at 1:37 EST Reading Location ID and State: [place] / [employer] Tel , Service support , Head/Neck CTA 07/02/23 01:12 IMPRESSION: Negative CTA carotid and CTA brain. Electronically Signed: Johnny Christianson MD at 1:45 EST Reading Location ID and State: [place] / [place] Tel , Service support , ADDENDUM: 07/02/23 0155 IMPRESSION: Negative CTA carotid and CTA brain. N.B. : The above Results were Read Back by Johnny Christianson MD to Dain Wheeler DO, and understanding confirmed on 07/02/2023 01:48:15 (ET). Electronically Signed: Johnny Christianson MD at 1:45 EST Reading Location ID and State: [place] / [employer] , Service support , Chest X-Ray 07/02/23 01:22 IMPRESSION: No acute cardiopulmonary abnormality. Electronically Signed: Johnny Christianson MD at 1:54 EST , Assessment & Plan Assessment/Plan (1) CVA (cerebral vascular accident): (2) Thrombocytosis: (3) Anxiety disorder: PLAN: Plan 1 CVA versus TIA?admit patient to progressive care unit, initiate neurochecks per routine protocol start aspirin 81 mg p.o. daily, order MRI of the brain noncontrast, order BMP CBC A1c FLP to be done in the morning 2. Leukocytosis and thrombocytosis?patient is status post splenectomy in 2019 with no known source of infection at this time we will watchfully wait to see ifany source of infection declares itself while she is being monitored in the hospital. She will follow-up with me as an outpatient once discharged 3. Anxiety disorder controlled 4. DVT prophylaxis?low molecular weight heparin Charges/Coding Visit Charges Inpatient E&M: 20966 Init Hosp L2 07/02/23 0243 <Electronically signed by Jeremiah Zamudio MD> Cosigner Signature (if applicable): CC: Dr. 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 several complaints, none seemingly related to the pancreas. clinically stable. MRI and CA 19-9 stable. 15 min visit. follow up one year. Vimal Padilla MD [facility] History of Present illness Narrative* Jeanine Michele, RT(R) - 10/09/2022 10:00 AM EDT Radiology Service Progress Note DATE OF SERVICE: [...] 2022 TIME: 10:15 AM documented in this [facility]04-11-2023 Miscellaneous Notes* Telephone Encounter - Italia Mohan RN - 09/18/2022 3:54 PM EDT Orders are placed for bloodwork * Telephone Encounter - Kimberlyn Bills - 09/18/2022 3:22 PM EDT Patient wants blood work to be placed for appointment with (CA-19) documented in this [facility]03-31-2023 Miscellaneous Notes* Telephone Encounter - KAY Reynolds - 09/07/2022 4:00 PM EDT Pt wanted to update office she schedule an in person visit for 11/06. documented in this encounterProm[facility]23 Miscellaneous Notes* Telephone Encounter - Italia Mohan RN - 09/07/2022 3:54 PM EDT Left VM to have patient schedule mri and then can work on prior auth once scheduled * Telephone Encounter - Claudia Jarrett - 09/07/2022 3:36 PM EDT Pt is calling in stating that she need prior authorization sent to her insurance before she get theMRI. 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 CA-19-9 8. PLAN - Continue surveillance with yearly MRI, CA-19-9. Return in 1 year. I reviewed MRI and blood work results in detail with Noble Calderon and the recommendation to continue surveillance, future orders placed in epic. I discussed pancreatic cysts in detail, and the potential need to continue to follow this process with surveillance imaging to rule out any growth of change of the cyst(s)/pancreatic duct/pancreas. The majority of the visit was spent counseling, teaching and/or coordinating care for the patient. [id number] time was 30 minutes. Seen and discussed with Dr. Padilla. Paloma Rodriguez MD 1:40 PM 11/07/2021 documented in this encounterProm[facility]05-09-[facility] History of Present illness Narrative* RT Nilda(R) - 10/16/2021 10:40 AM EDT Radiology Service Progress Note DATE OF SERVICE: [...] MR; Exam(s) Completed: Body: Pancreas/Biliary SIGNATURE: RT Nilda(Noble) PATIENT NAME: Noble Calderon DATE: October 16, 2021 TIME: 11:25 AM documented in this encounterProm[facility]-04[facility] History of Past illness Narrative* Problem Noted Date Resolved Date Routine gynecological examination 06/13/2011 09/18/2011 documented as of this encounter (statuses as of 09/06/2021) [facility] of Past illness Narrative* Problem Noted Date Resolved Date Routine gynecological examination 06/13/2011 09/18/2011 documented as of this encounter (statuses as of 10/17/2021) [address]04-2012 History of Past illness Narrative* Problem Noted Date Resolved Date Routine gynecological examination 06/13/2011 09/18/2011 documented as of this encounter (statuses as of 11/08/2021) [address]04-2012 History of Past illness Narrative* Problem Noted Date Resolved Date Routine gynecological examination 06/13/2011 09/18/2011 documented as of this encounter (statuses as of 07/31/2022) [address]04-2012 History of Past illness Narrative* Problem Noted Date Resolved Date Routine gynecological examination 06/13/2011 09/18/2011 documented as of this encounter (statuses as of 09/07/2022) [address]04-2012 History of Past illness Narrative* Problem Noted Date Resolved Date Routine gynecological examination 06/13/2011 09/18/2011 documented as of this encounter (statuses as of 09/12/2022) [address]04-2012 History of Past illness Narrative* Problem Noted Date Resolved Date Routine gynecological examination 06/13/2011 09/18/2011 documented as of this encounter (statuses as of 09/19/2022) [address]04-2012 History of Past illness Narrative* Problem Noted Date Resolved Date Routine gynecological examination 06/13/2011 09/18/2011 documented as of this encounter (statuses as of 09/19/2022) [address]04-2012 History of Past illness Narrative* Problem Noted Date Resolved Date Routine gynecological examination 06/13/2011 09/18/2011 documented as of this encounter (statuses as of 11/13/2022) [address]04-2012 History of Past illness Narrative* Problem Noted Date Diagnosed Date Resolved Date Routine gynecological examination 06/13/2011 09/18/2011 documented as of this encounter (statuses as of 04/14/2023) [address]04-2012 History of Past illness Narrative* Problem Noted Date Diagnosed Date Resolved Date Routine gynecological examination 06/13/2011 09/18/2011 documented as of this encounter (statuses as of 08/14/2023) [facility] Author Dain Wheeler [facility] July 02, 2023 3:37am Note Date/Time July 02, 2023 2 :25am [facility] Medical Records Department [address] [place] [address] Emergency Department Summary 07/02/23 MR#: [id number] Acct: [id number] Name: SHILPA CALDERON Rep #:[id number] 1950 73 From: Dain Wheeler DO PCP: Dr. Jeremiah Zamudio MD Status:ADM I N Location: [place] [address] HPI History of Present Illness Chief Complaint: Stroke Alert Informant: patient and spouse/S.O. Narrative Narrative: Patient is a 73-year-old female with past medical history of hypertension [id number] diabetes and gastritis. She states 2 to 3 hours prior to arrival she began to feel numbness and tingling to the right side of her face aswell as noted blurry/change of vision. She states she was dizzy with this. She states she tried to rest and see if the symptoms would resolve but they would not do so and secondary to this the patient presents to the hospital for evaluation [facility] Medical History (Updated 07/02/23 @ 03:[address] 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 Dermatitis Diabetes mellitus Hypertension Pigmented purpuric dermatosis Thrombocytosis Home Medications clonazepam 0.5 mg disintegrating tablet 0.5 mg PO QHS 01/22/15 [History Last Taken Unknown] trazodone 50 mg tablet 50 mg PO QHS 01/22/15 [History Last Taken Unknown] amlodipine 5 mg tablet 5 mg PO DAILY 09/20/20 [History Last Taken Unknown] fluoxetine 20 mg capsule 20 mg PO DAILY 09/20/20 [History Last Taken Unknown] losartan 100 mg tablet 100 mg PO DAILY 09/20/20 [History Last Taken Unknown] cranberry concentrate-ascorbic acid 140 mg-100 mg capsule 1 tablet PO DAILY 09/22/20 [History Last Taken Unknown] aspirin 81 mg tablet,delayed release (Adult Aspirin Regimen) 81 mg PO DAILY 07/02/23 [History Last Taken Unknown] latanoprost 0.005 % eye drops 1 drp ophthalmic (eye) DAILY GLAUCOMA 07/02/23 [History Last Taken Unknown] metformin 500 mg tablet 500 mg PO BID 07/02/23 [History Last Taken Unknown] metronidazole 0.75 % topical cream 1 applic topical DAILY 07/02/23 [History Last Taken Unknown] pantoprazole 40 mg tablet,delayed release 40 mg PO DAILY 07/02/23 [History Last Taken Unknown] Allergy/AdvReac Type Severity Reaction Status Date / Time metoprolol [From Toprol XL] AdvReac Severe Other Verified 07/02/23 01:14 nitrofurantoin AdvReac Intermediate Other Verified 07/02/23 01:14 [From Macrobid] Penicillins AdvReac Intermediate Hives Verified 07/02/23 01:14 Family History Father Myocardial infarction Mother Lung cancer Brother Diabetes Surgical History History of splenectomy Social History Smoking Status: Never smoker ROS ROS ED Constitutional Constitutional ED: Denies chills or fever(s) Eyes Eyes: Reports blurry vision and change in vision ENT ENT ED: Denies sore throat Cardiovascular Cardiovascular: Denies chest pain, palpitations or racing heartbeat Respiratory/Chest Respiratory/Chest: Denies cough or dyspnea Gastrointestinal Gastrointestinal: Denies abdominal pain, diarrhea, nausea or vomiting Genitourinary Genitourinary ED: Denies dysuria Musculoskeletal Musculoskeletal: Denies myalgias Integumentary Denies rash Neurologic Neurologic: Reports paresthesias, weakness and other Details: Positive dizziness; Denies headache(s) Hematologic/Lymphatic Hematologic/Lymphatic: Denies easy bleeding or easy bruising EXAM Physical Exam Const Vital Signs: 07/02/23 01:04 07/02/23 01:15 07/02/23 01:27 Temperature 98.7 F Temperature Source Temporal Pulse Rate 112 H 106 H Respiratory Rate 12 17 Blood Pressure 175/89 H 167/71 H Blood Pressure Mean 117 103 Pulse Ox 98 96 Oxygen Delivery Method Room Air Room Air Room Air 07/02/23 01:42 07/02/23 02:12 07/02/23 02:30 Temperature Temperature Source Pulse Rate 94 94 92 Respiratory Rate 17 17 12 Blood Pressure 155/84 H 168/67 H 164/81 H Blood Pressure Mean 107 100 108 Pulse Ox 96 97 97 Oxygen Delivery Method Room Air Room Air Room Air Positive well nourished, well developed and obese General Appearance ED: well developed; Negative for pallor Nutritional Appearance: obese HEENT Reports moist mucous membranes HEENT Narrative: Normocephalic atraumatic No signs of infection noted in the posterior pharynx Eyes PERRL and EOMs intact bilaterally General Eye ED: Negative for scleral icterus Neck supple Neck Narrative: No nuchal rigidity or meningeal signs Chest Wall palpation of chest normal Resp normal respiratory effort and clear to auscultation bilaterally Cardio regular rhythm Rate: tachycardic and other Other Details: Tachycardic rate with regular rhythm No murmurs rubs or gallops noted Radial and carotid pulses are equal and symmetric GI normal to inspection, nondistended, normoactive bowel sounds, non-tender, non-distended and no masses Auscultation: normoactive bowel sounds Palpation: soft Extremity normal to inspection Neuro oriented x3 Neuro Narrative: Patient is awake alert and oriented to person place and time. There is slight right-sided facial droop noted and decreased sensation with palpation of the right face compared to left. Secondary to the slight facial droop and paresthesias she received an NIH stroke scale score of 2. Otherwise there is nodysmetria dysarthria pronator drift or truncal ataxia. Sensorium / Orientation: alert Motor Exam: strength 5/5 throughout Psych mental status grossly normal Skin no rashes or lesions noted General Skin Exam: Negative for jaundice or pallor MDM MDM MDM Narrative Medical decision making narrative: Patient presented to the ER mildly hypertensive and tachycardic. There was slight right-sided facial droop and reported paresthesias and secondary to this a stroke alert was activated. Patient received a noncontrast head CT as well asa CTA of the head and neck secondary to her stroke scale score of 2. Differential diagnosis is for ischemic versus hemorrhagic stroke versus large vessel occlusion versus TIA. Noncontrast and CTA revealed no acute finding. The patient was also evaluated by the stroke neurologist. They agree that as her stroke scale score is low at a value of 2 there is no need for TNK. They recommend that with negative imaging studies and a low stroke scale score patient be kept at this facility for continued stroke workup. The patient's labs showed a white blood cell count of 18.6 but otherwise no clinically significant findings. She reported being treated for UTI a few weeks ago but denied any dysuria at this time and she also stated she had mild congestion and cough but her chest x-ray revealed no obvious infiltrate. Therefore UA will be added to today's workup. On reevaluation her stroke scale score remains at 2 and as she does have risk factors such as age hypertension and diabetes medicinewas contacted and they do agree to accept the patient at this time to complete her stroke workup. At this time as there is also no obvious source of infectiondespite elevated white count antibiotics will be held History & Record Review Discussion w/independent historian: Patient and Significant other Lab Data Attestation: I reviewed the patient's lab results. Labs: Laboratory Results - last 24 hr 07/02/23 07/02/23 01:07 01:10 WBC 18.6 H RBC 4.10 L Hgb 12.0 Hct 36.9 L MCV 90.0 MCH 29.3 MCHC 32.5 RDW Std Deviation 40.6 RDW Coeff of Katlyn 12.5 Plt Count 598 H MPV 9.2 Immature Gran % (Auto) 0.300 Neut % (Auto) 42.5 L Lymph % (Auto) 46.7 H [place] % (Auto) 8.4 Eos % (Auto) 1.3 Baso % (Auto) 0.8 Absolute Neuts (auto) 7.9 H Absolute Lymphs (auto) 8.70 H Nucleated RBC % 0 Differential Comment SCANNED Diff Path Review October foll PT 12.4 INR 0.9 APTT 23.2 L Sodium 140 Potassium 3.9 Chloride 107 Carbon Dioxide 26.0 Anion Gap 7 BUN 19 H Creatinine 1.10 H Estim Creat Clear Calc 43.83 Est GFR (MDRD) Af Amer 63 Est GFR (MDRD) Non-Af 52 L BUN/Creatinine Ratio 17.3 Glucose 107 H Calcium 9.6 Magnesium 2.2 POC Glucose 89 Radiography Diagnostic Testing: Clinical Impression(s) from Imaging Studies Brain CT 07/02/23 01:12 IMPRESSION: No acute intracranial abnormality. ASSESSMENT: ASPECTS ([place] Stroke Program Early CT Score) is 10. Electronically Signed: Johnny Christianson MD at 1:37 EST , ADDENDUM: 07/02/23 0147 IMPRESSION: No acute intracranial abnormality. ASSESSMENT: ASPECTS ([place] Stroke Program Early CT Score) is 10. N.B. : The above Results were Read Back by Johnny Christianson MD to Dain Wheeler DO, and understanding confirmed on 07/02/2023 01:40:05 (ET). Electronically Signed: Johnny Christianson MD at 1:37 EST , Head/Neck CTA 07/02/23 01:12 IMPRESSION: Negative CTA carotid and CTA brain. Electronically Signed: Johnny Christianson MD at 1:45 EST , ADDENDUM: 07/02/23 0155 IMPRESSION: Negative CTA carotid and CTA brain. N.B. : The above Results were Read Back by Johnny Christianson MD to Dain Wheeler DO, and understanding confirmed on 07/02/2023 01:48:15 (ET). Electronically Signed: Johnny Christianson MD at 1:45 EST , Chest X-Ray 07/02/23 01:22 IMPRESSION: No acute cardiopulmonary abnormality. Electronically Signed: Johnny Christianson MD at 1:54 EST , Chest x-ray as interpreted by the emergency medicine physician reveals no acute infiltrate pneumothorax or pleural effusion Management Discussion w/another healthcare provider: Hospitalist, Lead Php Developer and Radiologist Critical Care Time Critical Care Time: Yes Critical care time (excluding procedures): Discussing w/Patient &/or Family/CareGiver, Discussing w/Consultants and - (Critical care time of 33 minutes) Discharge Plan Dx/Rx/DC Orders Clinical Impression: CVA (cerebral vascular accident), Non-insulin dependent diabetes mellitus, Hypertension Disposition Disposition: Acute Care Hospital [facility] What to do if you have Problems For any increased pain, shortness of breath, bleeding, nausea or vomiting, chestpain, or any unexpected problems, contact your Primary Care Provider. Call [facility] ([phone]) or report to the closest Emergency Room. Call 911 if necessary. 07/02/23 0337 <Electronically signed by Dain Wheeler DO> Cosigner Signature (if applicable): CC: Dr. Jeremiah Zamudio MD ~ Signed [facility] Work Phone: Discharge summary Author Yris Sanchez [facility] July 02, 2023 3:18pm Note Date/Time July 02, 2023 3 :18pm [facility] Medical Records Department [address] [place] [id number] Instructions for Home/Discharge Instructions 07/02/23 1518 MR#: [id number] Acct: [id number] Name: SHILPA CALDERON Rep #:[id number] : 1950 73 From: Yris Sanchez MD PCP: Dr. Jeremiah Zamudio MD Status:ADM I N Discharge Instructions Diet Discharge Diet: Low fat / Low cholesterol Activity Discharge Activity: Return to Normal Activity Weight Bearing Status: Weight bearing as tolerated Dressing / Incision Call your doctor if you observe: Fever of 101 or Higher, Shortness of breath, Dizziness, Swelling in the ankles and Chest pain Follow Up Care Test Results: Test results from this visit will be discussed in further detail at your follow- up appointment, if applicable. Discharge Plan Admission Admit Date/Time: 07/02/23 02:43 Primary Reason for Your Visit: dizziness, right facial numbness Attending Provider: Yris Sanchez Primary Care Provider: Jeremiah Zamudio Consulting Providers: Jeremiah Zamudio Instructions Patient Instructions: TOMMY Boudreaux Additional Instructions / Restrictions: to see PCP onoutpatient basis for 2D echo to be ordered Discharge Orders/Prescriptions Prescriptions: Continued trazodone 50 MG tablet 50 mg PO QHS Patient Comments: SLEEP clonazepam 0.5 MG tablet,disintegrating 0.5 mg PO QHS Patient Comments: SLEEP amlodipine 5 MG tablet 5 mg PO DAILY losartan 100 MG tablet 100 mg PO DAILY fluoxetine 20 MG capsule 20 mg PO DAILY cranberry conc-ascorbic acid 1 EACH capsule 1 tablet PO DAILY aspirin [Adult Aspirin Regimen] 81 mg tablet,delayed release (DR/EC) 81 mg PO DAILY metformin 500 mg tablet 500 mg PO BID Patient Comments: TAKE 1 TABLET BY MOUTH TWICE A DAY pantoprazole 40 mg tablet,delayed release (DR/EC) 40 mg PO DAILY Patient Comments: TAKE 1 TABLET BY MOUTH EVERY DAY metronidazole 0.75 % cream 1 applic TOPICAL DAILY Patient Comments: APPLY TO AFFECTED AREA EVERY DAY latanoprost 0.005 % drops 1 drp ophthalmic (eye) DAILY Patient Comments: INSTILL 1 DROP INTO BOTH EYES EVERY DAY Referrals / Follow Up: Jeremiah Zamudio MD [Primary Care Provider] - Within 1 Week Disposition Disposition (needs filled in before D/C Order can be placed): Home, Self Care 07/02/23 1518<Electronically signed by Yris Sanchez MD>Yris Sanchez MD CC: Dr. Jeremiah Zamudio MD ~ Signed [facility] Work Phone: evaluation note* Diagnosis Pancreatic cyst Cyst and pseudocyst of pancreas documented in this encounter [facility] note* Diagnosis Pancreatic cyst Cyst and pseudocyst of pancreas documented in this encounter [facility] note* Diagnosis IPMN (intraductal papillary mucinous neoplasm)- Primary Neoplasm of unspecified nature of digestive system documented in this encounter [facility] noteNo assessment information availableWOhio[facility] Work Phone: Evaluation note* Diagnosis Biliary cyst- Primary Other specified disorder of gallbladder documented in this encounter [facility] note* Diagnosis IPMN (intraductal papillary mucinous neoplasm)- Primary Neoplasm of unspecified nature of digestive system documented in this encounter [facility] note* Diagnosis IPMN (intraductal papillary mucinous neoplasm)- Primary Neoplasm of unspecified nature of digestive system Ulcerative proctitis with other complication (HCC) documented in this encounter [facility] note* Diagnosis Biliary cyst Other specified disorder of gallbladder documented in this encounter [facility] note* Diagnosis Onset Date Resolution Status CVA (cerebral vascular accident) acute Non-insulin dependent diabetes mellitus acute Anxiety disorder chronic Hypertension chronic Thrombocytosis chronic [facility] Work Phone: Evaluation note* Diagnosis Onset Date Resolution Status CVA (cerebral vascular accident) resolved [facility] Work Phone: Evaluation note* Diagnosis IPMN (intraductal papillary mucinous neoplasm)- Primary Neoplasm of unspecified nature of digestive system documented in this encounter [facility] note* Diagnosis Biliary cyst Other specified disorder of gallbladder documented in this encounter [facility] note* Diagnosis IPMN (intraductal papillary mucinous neoplasm)- Primary Neoplasm of unspecified nature of digestive system Ulcerative proctitis with other complication (HCC) documented in this encounter [facility] note* Diagnosis Acute post-operative pain- Primary Pancreatic mass Unspecified disease of pancreas Pancreatic mass Unspecified disease of pancreas Biliary cyst- Primary Other specified disorder of gallbladder documented in this encounter [facility] note* Diagnosis Acute post-operative pain- Primary Pancreatic mass Unspecified disease of pancreas Pancreatic mass Unspecified disease of pancreas IPMN (intraductal papillary mucinous neoplasm)- Primary Neoplasm of unspecified nature of digestive system Biliary cyst Other specified disorder of gallbladder documented in this encounter [facility] note* Diagnosis Acute post-operative pain- Primary Pancreatic mass (HCC) Unspecified disease of pancreas Pancreatic mass (HCC) Unspecified disease of pancreas IPMN (intraductal papillary mucinous neoplasm) Neoplasm of unspecified nature of digestive system Biliary cyst Other specified disorder of gallbladder documented in this encounter [facility] note* Diagnosis Acute post-operative pain- Primary Pancreatic mass (HCC) Unspecified disease of pancreas Pancreatic mass (HCC) Unspecified disease of pancreas IPMN (intraductal papillary mucinous neoplasm)- Primary Neoplasm of unspecified nature of digestive system [facility] Author Jeremiah Zamudio [facility] July 02, 2023 2:43am Note Date/Time July 02, 2023 2 :43am [facility] System Medical Records Department [address] [place] [address] History & Physical Exam 07/02/23 0233 MR#: [id number] Acct: [id number] Name: SHILPA CALDERON Rep #:[id number] : 1950 73 From: Jeremiah Zamudio MD PCP: Dr. Jeremiah Zamudio MD Status:REG E R Location: ED HPI - General General Date of Admission: 01/23/24 Date of Service: 07/02/23 Chief Complaint: Right facial numbness and blurry vision JACOB CALDERON, is a 73 F who presents to the emergency department with chief complaint of right facial numbness and blurry vision. Patient has significant past medical history of diabetes, hypertension and history of partial pancreatectomy and splenectomy in 2019. Patient states she was watching television and having trouble with vision in her right eye and noticed her face was numb and she felt a funny feeling in her mouth. She also complained of feeling dizzy. Patient denies chest pain, shortness of breath and/or fevers or chills and no dysuria at this time. Initial CT scan of the head and neck were negative and chest x-ray was also negative. White blood cell count was markedlyelevated at 18,000 with a left shift but no identified source of infection at this time. Patient is afebrile and without symptoms therefore will watchfully wait to see if infection declares itself. Since her arrival she is feeling lessdizzy her mouth feels back to normal and her vision is normal at this time, however, she does have some residual numbness in her right face. She will be admitted to progressive care unit with neurochecks and order MRI head for the morning. [facility] Medical History (Updated 07/02/23 @ 02:[address] Dain Wheeler DO) 2/ spleen & pancreas removed Dermatitis Diabetes mellitus Hypertension Pigmented purpuric dermatosis Thrombocytosis Home Medications clonazepam 0.5 mg disintegrating tablet 0.5 mg PO QHS 01/22/15 [History Last Taken Unknown] trazodone 50 mg tablet 50 mg PO QHS 01/22/15 [History Last Taken Unknown] amlodipine 5 mg tablet 5 mg PO DAILY 09/20/20 [History Last Taken Unknown] fluoxetine 20 mg capsule 20 mg PO DAILY 09/20/20 [History Last Taken Unknown] losartan 100 mg tablet 100 mg PO DAILY 09/20/20 [History Last Taken Unknown] cranberry concentrate-ascorbic acid 140 mg-100 mg capsule 1 tablet PO DAILY 09/22/20 [History Last Taken Unknown] aspirin 81 mg tablet,delayed release (Adult Aspirin Regimen) 81 mg PO DAILY 07/02/23 [History Last Taken Unknown] latanoprost 0.005 % eye drops 1 drp ophthalmic (eye) DAILY GLAUCOMA 07/02/23 [History Last Taken Unknown] metformin 500 mg tablet 500 mg PO BID 07/02/23 [History Last Taken Unknown] metronidazole 0.75 % topical cream 1 applic topical DAILY 07/02/23 [History Last Taken Unknown] pantoprazole 40 mg tablet,delayed release 40 mg PO DAILY 07/02/23 [History Last Taken Unknown] Allergy/AdvReac Type Severity Reaction Status Date / Time metoprolol [From Toprol XL] AdvReac Severe Other Verified 07/02/23 01:14 nitrofurantoin AdvReac Intermediate Other Verified 07/02/23 01:14 [From Macrobid] Penicillins AdvReac Intermediate Hives Verified 07/02/23 01:14 Family History Father Myocardial infarction Mother Lung cancer Brother Diabetes Surgical History History of splenectomy Social History Smoking Status: Never smoker ROS Constitutional Constitutional: Denies chills or fever(s) Eyes Eyes: Reports blurry vision and change in vision right ENT HEENT: Denies abnormal hearing, dysphagia, headache(s), hearing loss or loss taste/smell Cardiovascular Cardiovascular: Denies chest pain Respiratory/Chest Respiratory/Chest: Denies shortness of breath at rest Gastrointestinal Gastrointestinal: Denies abdominal pain Genitourinary Genitourinary: Denies dysuria or urinary frequency Musculoskeletal Musculoskeletal: Denies back pain Integumentary Integumentary: Denies dry skin Neurologic Neurologic: Reports dizziness, numbness and tingling; Denies abnormal gait, abnormal speech, tremor(s) or weakness Psychiatric Psychiatric: Reports anxiety Endocrine Endocrinology: Denies change in body appearance Hematologic/Lymphatic Hematologic/Lymphatic: Denies anemia Vital Signs Vital Signs Vital Signs: 07/02/23 01:04 07/02/23 01:15 07/02/23 01:27 Temperature 98.7 F Temperature Source Temporal Pulse Rate 112 H 106 H Respiratory Rate 12 17 Blood Pressure 175/89 H 167/71 H Blood Pressure Mean 117 103 Pulse Ox 98 96 Oxygen Delivery Method Room Air Room Air Room Air 07/02/23 01:42 07/02/23 02:12 Temperature Temperature Source Pulse Rate 94 94 Respiratory Rate 17 17 Blood Pressure 155/84 H 168/67 H Blood Pressure Mean 107 100 Pulse Ox 96 97 Oxygen Delivery Method Room Air Room Air Weight Weight: 165 lb 5.547 oz Body Mass Index (BMI) 30.2 Physical Exam Const oriented x3 General Appearance: cooperative and well developed HEENT normocephalic and head/scalp atraumatic Eyes PERRL and EOMs intact bilaterally Neck no lymphadenopathy and supple Lymph Lymphatic: no lymphadenopathy noted Resp normal respiratory effort, normal air movement and clear to auscultation bilaterally Cardio regular rate, regular rhythm, S1 normal heart sound and S2 normal heart sound GI normal to inspection, nondistended, normoactive bowel sounds Extremity normal capillary refill Skin General Skin Exam: no breakdown Neuro CN's II-XII intact bilaterally and no focal motor deficits Speech: speech normal Motor Exam: strength 5/5 throughout Psych thought process normal, cooperative and affect normal Results Lab / Micro Data 07/02/23 01:10 07/02/23 01:10 Labs: Laboratory Results - last 24 hr 07/02/23 01:07: POC Glucose 89 07/02/23 01:10: WBC 18.6 H, RBC 4.10 L, Hgb 12.0, Hct 36.9 L, MCV 90.0, MCH 29.3, MCHC 32.5, RDW Std Deviation 40.6, RDW Coeff of Katlyn 12.5, Plt Count 598 H,MPV 9.2, Immature Gran % (Auto) 0.300, Neut % (Auto) 42.5 L, Lymph % (Auto) 46.7H, [place] % (Auto) 8.4, Eos % (Auto) 1.3, Baso % (Auto) 0.8, Absolute Neuts (auto)7.9 H, Absolute Lymphs (auto) 8.70 H, Nucleated RBC % 0, Differential Comment SCANNED, Diff Path Review October foll, PT 12.4, INR 0.9, APTT 23.2 L, Sodium 140, Potassium 3.9, Chloride 107, Carbon Dioxide 26.0, Anion Gap 7, BUN 19 H, Creatinine 1.10 H, Estim Creat Clear Calc 43.83, Est GFR (MDRD) Af Amer 63, Est GFR (MDRD) Non-Af 52 L, BUN/Creatinine Ratio 17.3, Glucose 107 H, Calcium 9.6, Magnesium 2.2 Imagaing Rad[address] CT 07/02/23 01:12 IMPRESSION: No acute intracranial abnormality. ASSESSMENT: ASPECTS ([place] Stroke Program Early CT Score) is 10. Electronically Signed: Johnny Christianson MD at 1:37 EST , ADDENDUM: 07/02/23 0147 IMPRESSION: No acute intracranial abnormality. ASSESSMENT: ASPECTS ([place] Stroke Program Early CT Score) is 10. N.B. : The above Results were Read Back by Johnny Christianson MD to Dain Wheeler DO, and understanding confirmed on 07/02/2023 01:40:05 (ET). Electronically Signed: Johnny Christianson MD at 1:37 EST , Head/Neck CTA 07/02/23 01:12 IMPRESSION: Negative CTA carotid and CTA brain. Electronically Signed: Johnny Christianson MD at 1:45 EST Reading Location ID and State: [id number] / [employer] Tel , Service support , ADDENDUM: 07/02/23 0155 IMPRESSION: Negative CTA carotid and CTA brain. N.B. : The above Results were Read Back by Johnny Christianson MD to Dain Wheeler DO, and understanding confirmed on 07/02/2023 01:48:15 (ET). Electronically Signed: Johnny Christianson MD at 1:45 EST , Chest X-Ray 07/02/23 01:22 IMPRESSION: No acute cardiopulmonary abnormality. Electronically Signed: Johnny Christianson MD at 1:54 EST Reading Location ID and State: [id number] / [employer] , Service support , Assessment & Plan Assessment/Plan (1) CVA (cerebral vascular accident): (2) Thrombocytosis: (3) Anxiety disorder: PLAN: Plan 1 CVA versus TIA?admit patient to progressive care unit, initiate neurochecks per routine protocol start aspirin 81 mg p.o. daily, order MRI of the brain noncontrast, order BMP CBC A1c FLP to be done in the morning 2. Leukocytosis and thrombocytosis?patient is status post splenectomy in 2019 with no known source of infection at this time we will watchfully wait to see ifany source of infection declares itself while she is being monitored in the hospital. She will follow-up with me as an outpatient once discharged 3. Anxiety disorder controlled 4. DVT prophylaxis?low molecular weight heparin Charges/Coding Visit Charges Inpatient E&M: 06149 Init Hosp L2 07/02/23 0243 <Electronically signed by Jeremiah Zamudio MD> Cosigner Signature (if applicable): CC: Dr. Jeremiah Zamudio MD~ Signed [facility] Work Phone: Hospital Discharge instructions Additional Instructions to see PCP onoutpatient basis for 2D echo to be orderedWOhio[facility] Work Phone: Reason for referral (narrative)No reason for referral information availableWOhioHealth [facility] Work Phone: Reason for visit Narrative* MRI/CT (Routine) - Closed Specialty Diagnoses / Procedures Referred By Zully cope Referred To Contact MR IMAGING Diagnoses IPMN (intraductal papillary mucinous neoplasm) Biliary cyst Procedures MRI PANC/ESPERANZA WO/W IVCON MRI ABDOMEN W/O & [place] [address] [place] [address] Phone: tel: fax: [place] [id number] Referral ID Status Reason Start Date Expiration Date Visits Re quested Visits Authorized [id number] Closed 09/28/2024 06/09/2025 1 1 [facility] Reason for Referral Specialty Diagnoses / Procedures Referred By Zully cope Referred To Contact MR IMAGING Diagnoses Pancreatic cyst Procedures MRI PANC/ESPERANZA WO/W IVCON MRI ABDOMEN W/O & W/CONTRAST MATERIAL Noble Padilla MD [address] [place] [address] Mr Imaging Referral ID Status Reason Start Date Expiration Date Visits Requested Visits Authorized [id number] Pending Review Auto-Generat ed Referral 09/06/2021 10/06/2022 1 1 Referral ID Status Reason Start Date Expiration Date V isits Requested Visits Authorized [id number] Closed Auto-Generate d Referral 09/06/2021 11/13/2021 1 1 Specialty Diagnoses / Procedures Referred By Contac t Referred To Contact MR IMAGING Diagnoses Biliary cyst Procedures MRI PANC/ESPERANZA WO/W IVCON MRI ABDOMEN W/O & W/CONTRAST MATERIAL Noble Padilla MD [address] [place] [address] Mr Imaging Referral ID Status Reason Start Date Expiration Date Visits Requested Visits Authorized [id number] Pending Review Auto-Generat ed Referral 07/30/2022 08/29/2023 1 1 Specialty Diagnoses / Procedures Referred By Contac t Referred To Contact MR IMAGING Diagnoses Biliary cyst Procedures MRI PANC/ESPERANZA WO/W IVCON MRI ABDOMEN W/O & W/CONTRAST MATERIAL Noble Padilla MD [address] [place] [address] Mr Imaging [place] [address] Referral ID Status Reason Start Date Expiration Date V isits Requested Visits Authorized [id number] Closed Auto-Generate d Referral 07/30/2022 08/29/2023 1 1 Specialty Diagnoses / Procedures Referred By Contac t Referred To Contact MR IMAGING Diagnoses Biliary cyst Procedures MRI PANC/ESPERANZA WO/W IVCON MRI ABDOMEN W/O & W/CONTRAST MATERIAL Noble Padilla MD [address] [place] [address] Mr Imaging [place] [address] Referral ID Status Reason Start Date Expiration Date V isits Requested Visits Authorized [id number] Closed Auto-Generate d Referral 11/06/2022 12/06/2023 1 1 Specialty Diagnoses / Procedures Referred By Contac t Referred To Contact MR IMAGING Diagnoses Biliary cyst Procedures MRI 3D POST PROCESSING 3D RENDERING W/INTERP&POST[place] [address] [place] [address] [place] [address] Referral ID Status Reason Start Date Expiration Date Visits Requested Visits Authorized [id number] New Request Auto-Generat ed Referral 07/09/2024 08/08/2025 1 1 Referral ID Status Reason Start Date Expiration Date Visits Requested Visits Authorized [id number] New Request Auto-Generat ed Referral 07/09/2024 08/08/2025 1 1 Advance Directives Documents on File Type Date Recorded Patient Decontamination Technician Expl anation Advance Directive(s) 11/10/2019 2:45 PM Advance Directive(s) 11/10/2019 2:56 PM Advance Directive(s) 10/26/2019 10:54 AM Documents on File Type Date Recorded Patient Decontamination Technician Expl anation Advance Directive(s) 11/10/2019 2:45 PM Advance Directive(s) 11/10/2019 2:56 PM Advance Directive(s) 10/26/2019 10:54 AM Advance Directive Response Recorded Date/ Time Advance Directives No January 22, 2015 3:34pm Living Will No January 16, 2021 9:46pm Power of Strickler Attendant No January 16 9:46pm Advance Directive Response Recorded Date/ Time Advance Directives No January 22, 2015 2:34pm Living Will No January 16, 2021 8:46pm Power of Strickler Attendant No January 16 8:46pm Documents on File Type Date Recorded Patient Decontamination Technician Expl anation Advance Directive(s) 11/10/2019 2:45 PM Documents on File Type Date Recorded Patient Decontamination Technician Expl anation Advance Directive(s) 11/10/2019 2:45 PM Advance Directive Response Recorded Date/ Time Advance Directives No January 22, 2015 2:34pm Living Will No July 02 3:57am Power of Strickler Attendant No July 02, 2023 3:57am Advance Directive Response Recorded Date/ Time Advance Directives No January 22, 2015 3:34pm Family History Relationship Condition Age at Onset Recorded Date/T dawson father Myocardial infarction Unknown mother Malignant neoplasm of lung Unknown brother Diabetes mellitus Unknown Chief Complaint and Reason for Visit Chief Complaint PAIN IN FINGER/ RIGH T HAND Chief Complaint SCREENING screening Chief Complaint DIZZNINESS CVA VERSUS TIA Reason for Visit CVA (cerebral vascul ar accident) Non-insulin dependent diabetes mellitus Anxiety disorder Hypertension Thrombocytosis Chief Complaint DIZZNINESS CVA VERSUS TIA Transient cerebral ischemic attack, unspecified Reason for Visit CVA (cerebral vascul ar accident) Chief Complaint Admit Date SCREENING November 05, 2024 2:46p m Summary Purpose Additional Source Comments Source Comments (unrecognize d section and content) In the event this informatio n is protected by the Federal Confidentiality of Alcohol and Drug Abuse Patient Records regulations: The Federal rules restrict any use of the information to criminally investigate or prosecute any alcohol or drug abuse patient.[facility] the event this information is protected by the Federal Confidentiality of Alcohol and Drug Abuse Patient Records regulations: The Federal rules restrict any use of the information to criminally investigate or prosecute any alcohol or drug abuse patient.[facility] Hospital[facility] the event this information is protected by the Federal Confidentiality of Alcohol and Drug Abuse Patient Records regulations: The Federal rules restrict any use of the information to criminally investigate or prosecute any alcohol or drug abuse patient.[facility] the event this information is protected by the Federal Confidentiality of Alcohol and Drug Abuse Patient Records regulations: The Federal rules restrict any use of the information to criminally investigate or prosecute any alcohol or drug abuse patient.[facility] the event this information is protected by the Federal Confidentiality of Alcohol and Drug Abuse Patient Records regulations: The Federal rules restrict any use of the information to criminally investigate or prosecute any alcohol or drug abuse patient.[facility] the event this information is protected by the Federal Confidentiality of Alcohol and Drug Abuse Patient Records regulations: The Federal rules restrict any use of the information to criminally investigate or prosecute any alcohol or drug abuse patient.[facility] the event this information is protected by the Federal Confidentiality of Alcohol and Drug Abuse Patient Records regulations: The Federal rules restrict any use of the information to criminally investigate or prosecute any alcohol or drug abuse patient.[facility] Hospital[facility] the event this information is protected by the Federal Confidentiality of Alcohol and Drug Abuse Patient Records regulations: The Federal rules restrict any use of the information to criminally investigate or prosecute any alcohol or drug abuse patient.[facility] Hospital[facility] the event this information is protected by the Federal Confidentiality of Alcohol and Drug Abuse Patient Records regulations: The Federal rules restrict any use of the information to criminally investigate or prosecute any alcohol or drug abuse patient.[facility] Hospital[facility] the event this information is protected by the Federal Confidentiality of Alcohol and Drug Abuse Patient Records regulations: The Federal rules restrict any use of the information to criminally investigate or prosecute any alcohol or drug abuse patient.[facility] the event this information is protected by the Federal Confidentiality of Alcohol and Drug Abuse Patient Records regulations: The Federal rules restrict any use of the information to criminally investigate or prosecute any alcohol or drug abuse patient.[facility] the event this information is protected by the Federal Confidentiality of Alcohol and Drug Abuse Patient Records regulations: The Federal rules restrict any use of the information to criminally investigate or prosecute any alcohol or drug abuse patient.[facility] the event this information is protected by the Federal Confidentiality of Alcohol and Drug Abuse Patient Records regulations: The Federal rules restrict any use of the information to criminally investigate or prosecute any alcohol or drug abuse patient.[facility]In the event this information is protected by the Federal Confidentiality of Alcohol and Drug Abuse Patient Records regulations: The Federal rules restrict any use of the information to criminally investigate or prosecute any alcohol or drug abuse patient.[facility] HospitalIn the event this information is protected by the Federal Confidentiality of Alcohol and Drug Abuse Patient Records regulations: The Federal rules restrict any use of the information to criminally investigate or prosecute any alcohol or drug abuse patient.[facility] HospitalIn the event this information is protected by the Federal Confidentiality of Alcohol and Drug Abuse Patient Records regulations: The Federal rules restrict any use of the information to criminally investigate or prosecute any alcohol or drug abuse patient.[facility]In the event this information is protected by the Federal Confidentiality of Alcohol and Drug Abuse Patient Records regulations: The Federal rules restrict any use of the information to criminally investigate or prosecute any alcohol or drug abuse patient.[facility] HospitalIn the event this information is protected by the Federal Confidentiality of Alcohol and Drug Abuse Patient Records regulations: The Federal rules restrict any use of the information to criminally investigate or prosecute any alcohol or drug abuse patient.[facility] HospitalIn the event this information is protected by the Federal Confidentiality of Alcohol and Drug Abuse Patient Records regulations: The Federal rules restrict any use of the information to criminally investigate or prosecute any alcohol or drug abuse patient.[facility] Care Teams (unrecognized sec tion and content) Bottle Gauger Relationship Specialty Start Date End Date Jeremiah Zamudio MD PCP - General Family Practice 09/18/11 Bottle Gauger Relationship Specialty Start Date End Date Jeremiah Zamudio MD PCP - General Family Practice 09/18/11 Bottle Gauger Relationship Specialty Start Date End Date Jeremiah Zamudio MD PCP - General Family Practice 09/18/11 Bottle Gauger Relationship Specialty Start Date End Date Jeremiah Zamudio MD PCP - General Family Medicine 09/18/11 Bottle Gauger Relationship Specialty Start Date End Date Jeremiah Zamudio MD PCP - General Family Medicine 09/18/11 Bottle Gauger Relationship Specialty Start Date End Date Jeremiah Zamudio MD PCP - General Family Medicine 09/18/11 Bottle Gauger Relationship Specialty Start Date End Date Jeremiah Zamudio MD PCP - General Family Medicine 09/18/11 Team Status: Active Member Role Status Dates Dr. Jeremiah Zamudio MD Family Provider Active Dr. Jeremiah Zamudio MD Primary Care Provider Active Team Status: Inactive Member Role Status Dates Dr. Jeremiah Zamudio MD Primary Care Provi júnior, Attending Provider, Referring Provider Active Bottle Gauger Relationship Specialty Start Date End Date Jeremiah Zamudio MD PCP - General Family Medicine 09/18/11 Team Status: Active Member Role Status Dates Dr. Jeremiah Zamudio MD Primary Care Provider, Attending Provider Active Dr. Dain Wheeler DO Emergency Provider Active Team Status: Active Member Role Status Dates Dr. Jeremiah Zamudio MD Primary Care Provi júnior, Admit Provider, Attending Provider, Referring Provider Active Dr. Dain Wheeler DO Emergency Provider Active Team Status: Inactive Member Role Status Dates Dr. Jeremiah Zamudio MD Primary Care Provi júnior, Admit Provider, Referring Provider, Other Provider Active Dr. Dain Wheeler DO Emergency Provider Active Dr. Yris Sanchez MD Attending Provider Active Team Status: Active Member Role Status Dates Dr. Jeremiah Zamudio MD Primary Care Provider Active Dr. Saul Mcmahon MD Attending Provider Activ e Bottle Gauger Relationship Specialty Start Date End Date Jeremiah Zamudio MD PCP - General Family Medicine 09/18/11 Bottle Gauger Relationship Specialty Start Date End Date Jeremiah Zamudio MD PCP - General Family Medicine 09/18/11 Bottle Gauger Relationship Specialty Start Date End Date Jeremiah Zamudio MD PCP - General Family Medicine 09/18/11 Bottle Gauger Relationship Specialty Start Date End Date Jeremiah Zamudio MD PCP - General Family Medicine 09/18/11 Bottle Gauger Relationship Specialty Start Date End Date Jeremiah Zamudio MD PCP - General Family Medicine 09/18/11 Bottle Gauger Relationship Specialty Start Date End Date Jeremiah Zamudio MD PCP - General Family Medicine 09/18/11 Bottle Gauger Relationship Specialty Start Date End Date Jeremiah Zamudio MD PCP - General Family Medicine 09/18/11 Bottle Gauger Relationship Specialty Start Date End Date Jeremiah Zamudio MD PCP - General Family Medicine 09/18/11 Team Status: Active Member Role Status Dates Dr. Jeremiah Zamudio MD Primary Care Provider Active Team Status: Inactive Member Role Status Dates Dr. Jeremiah Zamudio MD Primary Care Provider Active Start: November 05, 2024 End: November 05, 2024 Dr. Jeremiah Zamudio MD Attending Provider Active Start: November 05, 2024 End: November 05, 2024 Dr. Jeremiah Zamudio MD Referring Provider Active Start: November 05, 2024 End: November 05, 2024 Reason for Visit (unrecogniz ed section and content) Specialty Diagnoses / Procedures Referred By Contac t Referred To Contact MR IMAGING Diagnoses Pancreatic cyst Procedures MRI PANC/ESPERANZA WO/W IVCON MRI ABDOMEN W/O & W/CONTRAST MATERIAL Noble Padilla MD [address] [place], [place] [id number] Mr Imaging Referral ID Status Reason Start Date Expiration Date V isits Requested Visits Authorized [id number] Closed Auto-Generate d Referral 09/06/2021 11/13/2021 1 1 Reason Comments Established Patient Reason Comments Appointment Orders Reason Comments Appointment Reason Comments Patient Update Specialty Diagnoses / Procedures Referred By Contac t Referred To Contact MR IMAGING Diagnoses Biliary cyst Procedures MRI PANC/ESPERANZA WO/W IVCON MRI ABDOMEN W/O & W/CONTRAST MATERIAL Noble Padilla MD [address] [place], [place] [id number] Mr [place] [id number] Referral ID Status Reason Start Date Expiration Date V isits Requested Visits Authorized [id number] Closed Auto-Generate d Referral 07/30/2022 08/29/2023 1 1 Specialty Diagnoses / Procedures Referred By Contac t Referred To Contact MR IMAGING Diagnoses Biliary cyst Procedures MRI PANC/ESPERANZA WO/W IVCON MRI ABDOMEN W/O & W/CONTRAST MATERIAL Noble Padilla MD [address] [place] [address] [place] [address] [place] [id number] Referral ID Status Reason Start Date Expiration Date V isits Requested Visits Authorized [id number] Closed Auto-Generate d Referral 11/06/2022 12/06/2023 1 1 Reason Comments Established Patient Follow-Up Reason Comments Patient Question Goals (unrecognized section and content) Goals may be documented in a n alternate sectionGoals may be documented in an alternate sectionGoals may be documented in an alternate sectionGoals may be documented in an alternate sectionGoals may be documented in an alternate sectionGoals may be documented in an alternate section INFORMATION SOURCE (unrecogn ized section and content) DATE CREATED AUTHOR 11/11/2024 [facility] DATE CREATED AUTHOR AUTHOR'S RANDA ASENCIO 11/23/2024 [facility] FOR RECORDS PERTAINING TO PATIENTS WHO ARE [...] BE BASED ON THE PRIMARY CLINICAL RECORDS. [employer] provides no warranty or guarantee of the accuracy or completeness of information in this document.
[2024-11-24 15:12] LABS: ALB/GLOB Ratio 1.3 RATIO (0.9-2.4); AST(SGOT) 21 U/L (<=31); Alanine Aminotransfer ALT/SGPT 16 U/L (<=34); Albumin, Serum 4.4 g/dL (3.4-4.8); Alkaline Phosphatase 84 U/L (35-104); Anion Gap 15 (5-15); BUN 13 mg/dL (4-19); BUN/Creat Ratio 16.9 RATIO (10-20); Calcium,Total 9.9 mg/dL (7.6-11.0); Carbon Dioxide 22.6 mmol/L (21.0-32.0); Chloride 101 mmol/L (98-108); Cholesterol 181 mg/dL (<=200); Creatinine, Serum 0.77 mg/dL (0.70-1.20); EST Glomerular Filtration Rate 81 (>60); Globulin 3.4 g/dL (2.2-4.2); Glucose 152 mg/dL (70-99); High Density Lipoprotein 56 mg/dL; Low Density Lipoprotein Calc. 103 mg/dL; Potassium 4.6 mmol/L (3.3-5.1); Protein, Total 7.8 g/dL (5.9-8.4); Sodium Level 139 mmol/L (133-145); Total Bilirubin 0.32 mg/dL (0.00-1.30); Triglycerides 106 mg/dL; Very Low Density Lipoprotein 21 mg/dL (5-40); cholesterol:hdl ratio screen 3.21
== END | disposition home or self-care (01) ==
LOC: MFPLAB 11:42
PROVIDERS: PCP Family Medicine; Referring Provider Family Medicine; Visit Provider Family Medicine
DX: I10 Essential (primary) hypertension (principal); D64.9 Anemia, unspecified
CPT/HCPCS: 36415; 80053; 80061; 82043; 82570; 85025

== ENCOUNTER → 2025-01-05 | Outpatient (CLI) | payer MEDICARE, SELFPAY | END | disposition home or self-care (01) | LOC: MFPLAB 15:46 | PROVIDERS: PCP Family Medicine; Referring Provider Family Medicine; Visit Provider Family Medicine | DX: E11.9 Type 2 diabetes mellitus without complications (principal) ==

== ENCOUNTER → 2025-05-20 | Outpatient (CLI) | payer MEDICARE, SELFPAY ==
[2025-05-20 12:47] LABS: AST(SGOT) 20 U/L (<=31); Alanine Aminotransfer ALT/SGPT 19 U/L (<=34); Albumin, Serum 4.3 g/dL (3.4-4.8); Alkaline Phosphatase 59 U/L (35-104); Anion Gap 12 (5-15); BUN 17 mg/dL (4-19); BUN/Creat Ratio 22.5 RATIO (10-20); Calcium,Total 9.5 mg/dL (7.6-11.0); Carbon Dioxide 25.8 mmol/L (21.0-32.0); Chloride 102 mmol/L (98-108); Cholesterol 169 mg/dL (<=200); Globulin 3.0 g/dL (2.2-4.2); Glucose 132 mg/dL (70-99); Low Density Lipoprotein Calc. 93 mg/dL; Potassium 4.4 mmol/L (3.3-5.1); Triglycerides 131 mg/dL; Very Low Density Lipoprotein 26 mg/dL (5-40); cholesterol:hdl ratio screen 3.20
== END | disposition home or self-care (01) ==
LOC: MFPLAB 10:45
PROVIDERS: PCP Family Medicine; Visit Provider Family Medicine
DX: I10 Essential (primary) hypertension (principal)
CPT/HCPCS: 36415; 80053; 80061